=== PATIENT | female | born 1980 | race Caucasian/White ===

== ENCOUNTER 2018-04-13 13:10 | Outpatient (REF) | payer BC, SELFPAY ==
[2018-04-13 21:49] LABS: Abs Immature Grans 0.02 k/cumm (0.0-0.09); Absolute Basophil Count 0.01 k/cumm (0.0-0.2); Absolute Eosinophil Count 0.01 k/cumm (0.0-0.7); Absolute Lymphocyte Count 1.83 k/cumm (1.2-3.4); Absolute Monocyte Count 0.64 k/cumm (0.11-0.7); Basophils % 0.1; Eosinophils % 0.1; HCT 41.6 % (36.0-46.0); HGB 14.6 g/dL (12.0-15.5); Immature Grans % 0.3; Lymphocytes % 23.7; Mean Corp. HGB Concentration 35.1 g/dL (32.0-36.0); Mean Corpuscular Hemoglobin 31.6 pg (27.0-33.0); Mean Platelet Volume 11.9 fL (8.0-11.0); Monocytes % 8.3; Neutrophils % 67.5; Platelet Count 203 x1000/uL (130-400); RBC 4.62 m/cumm (4.00-5.20); RBC Distribution Width 12.5 % (11.7-14.6); White Blood Cell Count 7.71 k/cumm (4.4-10.8)
== END 2018-04-13 13:30 ==
LOC: NCHCN 13:10
PROVIDERS: PCP Internal Medicine; Visit Provider Nurse Practitioner
DX: H05.223 Edema of bilateral orbit (principal)
CPT/HCPCS: 85025

== ENCOUNTER 2019-08-03 14:11 | Outpatient (CLI) | payer BC, SELFPAY ==
[2019-08-03 14:41] LABS: HCT 40.4 % (36.0-46.0); Mean Corp. HGB Concentration 34.7 g/dL (32.0-36.0); Mean Corpuscular Hemoglobin 30.6 pg (27.0-33.0); Mean Corpuscular Volume 88.4 fL (80-95); Mean Platelet Volume 10.5 fL (8.0-11.0); Platelet Count 226 x1000/uL (130-400); RBC 4.57 m/cumm (4.00-5.20); White Blood Cell Count 9.55 k/cumm (4.4-10.8)
[2019-08-03 15:18] LABS: D-Dimer 275 ng/mlFEU (<500)
== END 2019-08-03 14:31 ==
PROVIDERS: PCP Internal Medicine; Visit Provider Nurse Practitioner Family
DX: R05 Cough (principal)
CPT/HCPCS: 36415; 85027; 85379

== ENCOUNTER 2021-03-19 11:28 | Outpatient (REF) | payer BC, SELFPAY ==
[2021-03-19 14:09] LABS: Abs Immature Grans 0.02 10^3/uL (0.0-0.06); Absolute Basophil Count 0.02 10^3/uL (0.0-0.2); Absolute Eosinophil Count 0.03 10^3/uL (0.0-0.7); Absolute Lymphocyte Count 1.71 10^3/uL (1.2-3.4); Absolute Monocyte Count 0.75 10^3/uL (0.1-0.8); Absolute Neutrophil Count 4.96 10^3/uL (1.2-6.7); Basophils % 0.3; Eosinophils % 0.4; HCT 41.7 % (36.0-46.0); HGB 14.8 g/dL (11.2-15.7); Immature Grans % 0.3; Lymphocytes % 22.8; MCH 32.1 pg (27.0-33.0); MCHC 35.5 % (32.0-36.0); MCV 90.5 fL (80-95); MPV 11.3 fL (8.0-11.0); Neutrophils % 66.2; Nucleated RBC 0 %; Platelet Count 183 10^3/uL (130-400); RBC 4.61 10^6/uL (3.93-5.22); RDW 12.5 % (11.7-14.6); RDW-SD 41.1 fL; WBC 7.49 10^3/uL (4.4-10.8)
[2021-03-19 14:29] LABS: Anion Gap 9.7 mmol/L (3-11); BUN 20 mg/dL (7-18); CO2 26.3 mmol/L (21.0-32.0); Calcium 9.2 mg/dL (8.5-10.1); Chloride 106 mmol/L (98-107); Glucose 79 mg/dL (74-106); Potassium 4.3 mmol/L (3.5-5.1); Sodium 142 mmol/L (136-145); TSH (W/Ref FT4) 1.04 uIU/mL (0.36-3.74)
== END 2021-03-19 11:29 | disposition home or self-care (01) ==
LOC: NCHCN 11:28
PROVIDERS: PCP Internal Medicine; Visit Provider Family Medicine
DX: N39.0 Urinary tract infection, site not specified (principal); F41.9 Anxiety disorder, unspecified
CPT/HCPCS: 80048; 87077; 84443; 85025; 87086; 87186

== ENCOUNTER 2021-09-18 18:23 | Outpatient (REF) | payer BC, SELFPAY | END 2021-09-18 18:24 | disposition home or self-care (01) | LOC: NCHCN 18:23 | PROVIDERS: PCP Internal Medicine; Visit Provider Family Medicine | DX: R30.0 Dysuria (principal) | CPT/HCPCS: 87077; 87086; 87186 ==

== ENCOUNTER 2021-10-07 16:44 | Outpatient (REF) | payer BC, SELFPAY ==
--- NOTE | 2021-10-07 15:50 | PAPFT_PTH ---
PATIENT: April Lewis LOC: [facility]#:[id number] AGE/SX: 41/F ROOM: RE10/07/[address]: Gerda Matute : 1980 BED: DIS: 10/07/2021 SPEC #: [id number] RECD: 10/08/21 12:37 STATUS: SYLVAIN RERadha #: [id number] BILLY: 10/07/21 15:[address]: Gerda Matute DEPT: [facility] Cytology RECD BY: Mikala Quiñones ENTERED: 10/08/21 12:37 SP TYPE: PAPFT OTHR DR: Agustin Aguila Tissues: 1 - CX/ENDOCX FOR PAP SMEARS Procedures: PAP THIN PREP/UVM Screening HPV DNA PROBE Comments: [id number] (CHLAMYDIA/GC)
[2021-10-09 13:53] LABS: Chlamydia Result Negative (Negative); GC Result Negative (Negative)
== END 2021-10-07 16:45 | disposition home or self-care (01) ==
LOC: NCHCN 16:44
PROVIDERS: PCP Internal Medicine; Visit Provider Nurse Practitioner Family
DX: Z11.3 Encounter for screening for infections with a predominantly sexual mode of transmission (principal); Z12.4 Encounter for screening for malignant neoplasm of cervix; Z11.51 Encounter for screening for human papillomavirus (HPV); Z01.419 Encounter for gynecological examination (general) (routine) without abnormal findings; Z00.00 Encounter for general adult medical examination without abnormal findings
CPT/HCPCS: 87491; 87591; 88142; 87624

== ENCOUNTER 2024-01-23 09:25 | Emergency (ER) | payer BC, SELFPAY ==
[2024-01-23 09:31] VITALS: BP 145/100; PULSE 99; RESP 20; TEMP 35.7; O2SAT 98
--- NOTE | 2024-01-23 09:45 | ED.GENADUL_ITS ---
Discharge Plan Disposition Patient Disposition: Home Condition: Improving Discharge Details Clinical Impression: Acute hip pain Primary Care Provider: Agustin Aguila ED Provider: Micheal Field Home Meds and New Rx's Prescriptions: New cyclobenzaprine 5 mg tablet 5 mg PO QHS PRNQty: 7 0RF lidocaine [Lidoderm] 5 % adhesive patch,medicated 1 patch topical DAILY Qty: 15 0RF Rx Instructions: leave on most painful area for up to 12 hrs No Action mecobalamin (vitamin B12) 1,000 mcg tablet,chewable 1,000 mcg PO DAILY K2 Plus D3 1,000-100 unit-mcg tablet 1 tab PO DAILY Discharge Instructions Instructions: Hip Pain ED HPI General Date/Time Provider Initiated Documentation: 01/23/24 09:37 . HPI Narrative: 43-year-old female presents after sustaining acute onset left hip pain hearing and feeling an audible pop while dancing, has been able to walk on the leg with some discomfort. Related Data Home Medications ?Medication ?Instructions ?Recorded ?Confirmed cholecalciferol (vit D3) 1,000 1 tab PO DAILY 01/23/24 01/23/24 unit-vitamin K2 (MK4) 100 mcg tablet (K2 Plus D3) cyclobenzaprine 5 mg tablet 5 mg PO QHS PRN #7 tabs 01/23/24 lidocaine 5 % topical patch 1 patch topical DAILY #15 ea 01/23/24 (Lidoderm) mecobalamin (vitamin B12) 1,000 1,000 mcg PO DAILY 01/23/24 01/23/24 mcg chewable tablet Previous Rx's ?Medication ?Instructions ?Recorded cyclobenzaprine 5 mg tablet 5 mg PO QHS PRN #7 tabs 01/23/24 lidocaine 5 % topical patch 1 patch topical DAILY #15 ea 01/23/24 (Lidoderm) Allergies Allergy/AdvReac Type Severity Reaction Status Date / Time No Known Allergies Allergy Unverified 01/23/24 09:34 General Stated Complaint: Orthopedic BISMARK: 3 Exam Narrative Exam Narrative: Alert oriented resting comfortably No respiratory distress speaking full sentences Left lower extremity: Discomfort to lateral aspect of hip no evidence of hematoma crepitus or deformity, range of motion hip knee ankle foot intact, warm well-perfused extremity soft compartments, DP pulse intact ambulatory without assistance Course Vital Signs Vital signs: Vital Signs Temperature 35.7 C L 01/23/24 09:31 Pulse 99 H 01/23/24 09:31 Respiratory Rate 20 01/23/24 09:31 Blood Pressure 145/100 H 01/23/24 09:31 Pulse Oximetry 98 01/23/24 09:31 Temperature 35.7 C L 01/23/24 09:31 Temperature Source Skin 01/23/24 09:31 Pulse 99 H 01/23/24 09:31 Respiratory Rate 20 01/23/24 09:31 Blood Pressure 145/100 H 01/23/24 09:31 Blood Pressure Position Sitting 01/23/24 09:31 Pulse Oximetry 98 01/23/24 09:31 Oxygen Delivery Method Room Air 01/23/24 09:31 Oxygen Flow Rate 0 01/23/24 09:31 Pain Level 8 01/23/24 09:31 Medical Decision Making 43-year-old female presents after sustaining acute onset left hip pain hearing and feeling an audible pop while dancing, has been able to walk on the leg with some discomfort.Left lower extremity: Discomfort to lateral aspect of hip no evidence of hematoma crepitus or deformity, range of motion hip knee ankle foot intact, warm well-perfused extremity soft compartments, DP pulse intact ambulatory without assistance; consider IT band strain versus gluteal strain versus partial dislocation with self reduction versus less likely femoral neck or proximal femur fracture low suspicion for pelvic fracture most also consider atypical sciatica, no evidence of neurovascular compromise. Trial of analgesia anti-inflammatory will obtain screening x-ray AP pelvis and left hip likely home with care instructions and return precautions 10: 56 patient was comfortably feeling better after medication. X-ray unremarkable. Quality:SDOH Health Related Social Needs: No Data to Display PFSH All Active Problems (Updated 01/23/24 @ 10:56 by Micheal Field MD) Acute hip pain (Acute) Social History Smoking/Tobacco Use Status: Never Smoking risk assessment performed?: Yes Alcohol Intake: current Alcohol Intake frequency: holidays/special occasions only Alcohol type: wine Drug use: Never Substance use type: does not use Housing: house Do you feel safe at home: Yes Do you feel safe in your relationship?: Yes
[2024-01-23] MEDS: Lidocaine 5% Patch 1 PATCH TP (09:48)
[2024-01-23] MEDS: Cyclobenzaprine 10 MG TAB PO (09:48)
[2024-01-23] MEDS: Dexamethasone 10 MG/ML VIAL PO (09:48)
--- NOTE | 2024-01-23 10:08 | DI.RAD_ITS ---
Exam(s) XR HIP LT COMPLETE AP PELVIS EXAM: XR HIP LT COMPLETE AP PELVIS CLINICAL HISTORY: lateral hip pain, felt pop when dancing. TECHNIQUE: 2D digital imaging was performed of the left hip. Two views were obtained. AP pelvis an d lateral left hip views were obtained. COMPARISON: CR RIGHT HIP COMPLETE from 12/06/2012 FINDINGS: BONES: No acute fracture is present. No bony destructive lesion is seen. JOINTS: No dislocation present. SOFT TISSUE: Normal. IMPRESSION: Unremarkable radiographs of the left hip. Unremarkable radiographs of the pelvis DATA REPOSITORY: RADIATION DOSE DELIVERED:
--- NOTE | 2024-01-23 10:17 | DI.VRAD_ITS ---
PROCEDURE INFORMATION: Exam: XR Left Hip Exam date and time: 01/23/2024 10:04 AM Age: 43 years old Clinical indication: Other: Lateral hip pain, felt pop when dancing TECHNIQUE: Imaging protocol: Radiologic exam of the left hip. Views: 2 or 3 views hip with pelvis when performed. COMPARISON: No relevant prior studies available. FINDINGS: Bones/joints: Unremarkable. No acute fracture. Soft tissues: Unremarkable. IMPRESSION: No acute findings. Dictated and Authenticated by: Nicolasa Almanza MD. Ordering:ANGIE Burton MD
[2024-01-23 10:54] VITALS: PULSE 78; RESP 16; O2SAT 99
== END 2024-01-23 11:05 | disposition home or self-care (01) ==
PROVIDERS: Emergency Provider Emergency Medicine; PCP Internal Medicine
DX: M25.552 Pain in left hip (principal)
CPT/HCPCS: 99283; 73502; J1100

== ENCOUNTER 2024-07-12 12:34 | Outpatient (CLI) | payer BC, SELFPAY ==
--- NOTE | 2024-07-12 | DI.CT_ITS ---
Exam(s) CT ABDOMEN PELVIS W EXAM: CT ABDOMEN PELVIS W CLINICAL HISTORY: INTRA-ABD/PELVIC SWELLING/MASS/LUMP, R19.00. TECHNIQUE: Imaging Protocol: Axial computed tomography images with coronal and sagittal reformatted images were created and reviewed CONTRAST MATERIAL: Intravenous: Omnipaque 350 Contrast volume:75 ml Oral: yes COMPARISON: CR,XR XR HIP LT COMPLETE AP PELVIS from 01/23/2024 FINDINGS: ABDOMEN and PELVIS: Lung Bases: No acute findings. Liver: Mild hepatic steatosis. No suspicious mass. Gallbladder and biliary tract: Small gallstones. No wall thickening or pericholecystic fluid. No bi liary dilation. Pancreas: Normal density. No abnormal calcifications or inflammatory process. No evidence of mass. Spleen: Normal. Kidneys: Normal size, contour and axis. 3 millimeter stone lower pole left kidney. No obstructive u ropathy. Tiny renal cysts bilaterally. No suspicious masses seen. Adrenal glands: No masses seen. Vasculature: Abdominal aorta non-dilated. Soft tissues: Unremarkable. Bladder: No gross wall thickening. No calculi.No focal mass. Bowel: No obstruction. No bowel wall thickening. Appendix normal. Peritoneal cavity: No ascites. No focal collection. No mesenteric inflammatory response. No free air . Bones: Unremarkable for age. Reproductive organs: Large cystic mass with enhancing septations noted which appears to arise from th e left ovary. Approximate measurements are 20 cm cephalo caudad by 19 x 14 transverse and AP. The u terus is deviated toward the right and retroflexed. The right ovary shows a 2 centimeter cyst. Lymph nodes: No pathologically enlarged lymph nodes. 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 Calendering Supervisor consultation recom mended. RADIATION DOSE DELIVERED: 635.93mGy.cm Total DLP DATA REPOSITORY: All CT scans at this facility are submitted to the National Radiology Data Registry (NRDR) Dose Index Registry (DIR) with the [employer] (ACR). RADIATION OPTIMIZATION: All CT scans at this facility use at least one of these dose optimization te chniques: automated exposure control; mA and/or kV adjustment per patient size (includes targeted exa ms where dose is matched to clinical indication); or iterative reconstruction.
[2024-07-12 12:35] LABS: Abs Immature Grans 0.02 10^3/uL (0.0-0.06); Absolute Basophil Count 0.03 10^3/uL (0.0-0.2); Absolute Eosinophil Count 0.02 10^3/uL (0.0-0.7); Absolute Lymphocyte Count 1.75 10^3/uL (1.2-3.4); Absolute Monocyte Count 0.55 10^3/uL (0.1-0.8); Absolute Neutrophil Count 5.26 10^3/uL (1.2-6.7); Basophils % 0.4 %; Eosinophils % 0.3 %; HCT 45.3 % (36.0-46.0); HGB 15.4 g/dL (11.2-15.7); Immature Grans % 0.3 %; Lymphocytes % 22.9 %; MCH 30.7 pg (27.0-33.0); MCV 90 fL (80-95); MPV 10.5 fL (8.0-11.0); Monocytes % 7.2 %; Neutrophils % 68.9 %; Platelet Count 227 10^3/uL (130-400); RBC 5.01 10^6/uL (3.93-5.22); RDW 12.7 % (11.7-14.6); RDW-SD 42.3 fL; WBC 7.63 10^3/uL (4.4-10.8)
--- OUTSIDE RECORDS SUMMARY | 2024-07-12 12:36 | XMS_ITS | Encounter Summary ---
Author Organization [facility] Address [address] [place] [address] Care Team Providers Care Creative Lead Name Role Phone Agustin Aguila MD Primary Care Provider [phone] Encounter Details Date Type Department Care Team (Late st Contact Info) Description 05/03/[address] [facility] Radiology Results [address] [place], [place] [id number] Carroll Trinidad MD [address] [place] [address] [id number] Social History Tobacco Use Types Packs/Day Years Used Date Smoking Tobacco: Never Assessed Comments Unknown Sex and Gender Information Value Date Recorded Sex Assigned at Not on file Legal Sex Female 18:54 EST Gender Identity Female 08/12/2022 8:50 EST Sexual Orientation Not on file documented as of this encounter Plan of Treatment Not on file documented as of this encounter Procedures Procedure Name Priority Date/Time Associated Diagnosis Comments CT ABDOMEN PELVIS W CONTRAST 05/03/2015 16:47 EST documented in this encounter Results * CT ABDOMEN PELVIS W CONTRAST (05/03/2015 16:47 EST) Anatomical Region Laterality Modality Other 05/03/2015 16:4 7 EST Narrative 05/03/2015 20:09 EST ? EXAM: CAT SCAN/ABDOMEN PELVIS WITH CONTRA EX. D/ (1345) ? CLINICAL INFORMATION: ? R10.84 ??R10.32 LEFT LOWER QUADRANT PAIN;R/O ? ABDOMINAL/INGUINAL LEFT HERNIA ? INDICATION: Abdominal pain. Left lower quadrant pain. Question ? hernia. ? COMPARISON: None. ? TECHNIQUE: CT scan of the abdomen and pelvis was performed with IV ? and oral contrast. ? FINDINGS: The lung bases are clear. There is mild diffuse hepatic ? fatty infiltration. The gallbladder, pancreas, spleen, adrenal glands ? and right kidney are unremarkable. There are two tiny low-density ? lesions within the left kidney that are too small to accurately ? characterize but likely represent tiny cysts. The urinary bladder is ? unremarkable. There is a cyst measuring 15 mm within the left ovary. ? The right ovary and uterus are unremarkable. The appendix is normal. ? There is a posterior central disc protrusion at L4-L5 indenting the ? anterior thecal sac. ? There is a relatively smooth eventration of the midline of the ? anterior abdominal wall that extends from approximately 5 cm above to ? 5 cm below the umbilicus. Abdominal fat and loops of bowel fill this ? focal midline abdominal wall bulge. No focal hernia defect or ? incarceration is present. There is swelling and mild increased ? density within the medial aspect of the left rectus abdominis muscle ? (axial images 108 through 117). This may be the sequelae of trauma ? and rectus hematoma. A rectus abdominis muscle neoplasm is not ? excluded, but less likely. Close clinical correlation and followup is ? recommended. ? IMPRESSION: ? 1. Smooth eventration within the midline of the anterior abdominal ? wall extending from approximately 5 cm above to 5 cm below the ? umbilicus filled with loops of bowel and abdominal fat. No focal ? hernia defect or bowel incarceration is identified. ? 2. Indeterminate swelling and increased density within the medial ? edge of the left rectus abdominis muscle. Differential diagnosis ? includes trauma with rectus hematoma and neoplasm. ? 3. Other nonemergent findings as described above. ? REPORT SIGNED IN OTHER VENDOR SYSTEM 05/04/2015 ?Reported By: Elkin Clarke MD ? CC: Mary Phan ? Transcribed Date/Time: 05/03/2015 (2008) ? Corn Chip Maker: RENETTA ? Printed Date/Time: 12/07/2018 (0946) ? PAGE 1 ? Signed Report ? Procedure Note Elkin Clarke MD - 05/03/2019 EXAM: CAT SCAN/ABDOMEN PELVIS WITH CONTRA EX. D/ (1345) CLINICAL INFORMATION: R10.84 R10.32 LEFT LOWER QUADRANT PAIN;R/O ABDOMINAL/INGUINAL LEFT HERNIA INDICATION: Abdominal pain. Left lower quadrant pain. Question hernia. COMPARISON: None. TECHNIQUE: CT scan of the abdomen and pelvis was performed with IV and oral contrast. FINDINGS: The lung bases are clear. There is mild diffuse hepatic fatty infiltration. The gallbladder, pancreas, spleen, adrenalglands and right kidney are unremarkable. There are two tiny low-density lesions within the left kidney that are too small to accurately characterize but likely represent tiny cysts. The urinary bladderis unremarkable. There is a cyst measuring 15 mm within the leftovary. The right ovary and uterus are unremarkable. The appendix isnormal. There is a posterior central disc protrusion at L4-L5 indenting the anterior thecal sac. There is a relatively smooth eventration of the midline of the anterior abdominal wall that extends from approximately 5 cm aboveto 5 cm below the umbilicus. Abdominal fat and loops of bowel fillthis focal midline abdominal wall bulge. No focal hernia defect or incarceration is present. There is swelling and mild increased density within the medial aspect of the left rectus abdominismuscle (axial images 108 through 117). This may be the sequelae of trauma and rectus hematoma. A rectus abdominis muscle neoplasm is not excluded, but less likely. Close clinical correlation and followupis recommended. IMPRESSION: 1. Smooth eventration within the midline of the anterior abdominal wall extending from approximately 5 cm above to 5 cm below the umbilicus filled with loops of bowel and abdominal fat. No focal hernia defect or bowel incarceration is identified. 2. Indeterminate swelling and increased density within the medial edge of the left rectus abdominis muscle. Differential diagnosis includes trauma with rectus hematoma and neoplasm. 3. Other nonemergent findings as described above. REPORT SIGNED IN OTHER VENDOR SYSTEM 05/04/2015 Reported By: Elkin Clarke MD CC: Mary Phan Transcribed Date/Time: 05/03/2015 (2008) Corn Chip Maker: RENETTA Printed Date/Time: 12/07/2018 (0946) PAGE 1 Signed Report Carroll Trinidad MD IMG CT ORDERABLES Final Result documented in this encounter Visit Diagnoses Not on filedocumented in this encounter Care Teams Creative Lead Relationship Specialty Start Date End Date Agustin Aguila MD [address] [place] [id number] PCP - General 08/13/11 documented as of this encounter
--- OUTSIDE RECORDS SUMMARY | 2024-07-12 12:36 | XMS_ITS | Clinical Summary ---
Author Organization [facility] Address [address] [place] [address] Care Team Providers Care Cash Accounting Clerk Name Role Phone Agustin Aguila MD Primary Care Provider [phone] Allergies No known active allergies Medications escitalopram oxalate (LEXAPRO) 10 mg tablet Take 10 mg by mouth daily. 3 Active ketOROLAC (TORADOL) 10 mg tablet Take 1 Tablet by mouth every 6 hours. 20 Tablet 3 Active ondansetron (ZOFRAN-ODT) 4 mg disintegrating tablet Take 1 Tablet by mouth every 8 hours as needed for Nausea. 6 Tablet 3 Active HYDROmorphone (DILAUDID) 1 mg/mL liquid Take 2 mL by mouth every 4 hours as needed for up to 10 doses for Pain (severe pain). 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- R ight side clicking Activity, other involving ca rdiorespiratory exercise Noted 08/12/22- Walking, 1-2 FOS without any Back pain Noted 08/12/22- S ciatic pain Family History Medical History Relation Comments High Blood Pressure Mother Relation Status Comments Mother Social History Tobacco Use Types Packs/Day Years Used Date Smoking Tobacco: Never Smokeless Tobacco: Never Tobacco Cessation:Counseling Given: Not Answered Alcohol Use Standard Drinks/Week Comments Yes 0 (1 standard drink = 0.6 oz pur e alcohol) Occasionally Interpersonal Safety Answer Date Record ed Physically Hurt Never 01/28/2020 Verbally Threaten Not on file 01/28/2020 Comments Unknown Sex and Gender Information Value Date Recorded Sex Assigned at Not on file Legal Sex Female 18:54 EST Gender Identity Female 08/12/2022 8:50 EST Sexual Orientation Not on file Obstetrics History Last Filed Vital Signs Vital Sign Reading Time Taken Comments Blood Pressure 93/67 08/18/2022 1212 EST Pulse 100 08/18/2022 0343 EST Temperature 35.6 ??C (96.1 ??F) 08/18/2022 1212 EST Respiratory Rate 16 08/18/2022 1212 EST Oxygen Saturation 92% 08/18/2022 1212 EST Inhaled Oxygen Concentration - - Weight 86.1 kg (189 lb 13.1 oz) 08/17/2022 1119 EST Height 160 cm (5' 3) 08/17/2022 1119 EST Body Mass Index 33.62 08/17/2022 1119 EST Plan of Treatment Health Maintenance Due Date Last Done Comments Hepatitis C Screen 1980 Hepatitis B Vaccine (1 of 3 - 19+ 3-dose series) 07/24 COVID-19 Vaccine ( season) 2024 Medical Devices Implanted Type Area Truck Driving Device Identifier Shelf Expiration Date Model / Serial / Lot Plate Bone Cmf Mandib Crv Lck Gld 6h 6mm Broadcastr [id number] - [id number] Implanted:Qty: 1 on 08/17/2022 by Martínez Chi DDS at [facility] Plate Implant Right: Mandible JUAN ANTONIO ELOISATibion [employer]ionic TechnologiesJOANNE [id number] / / Plate Bone Cmf Mandib Crv Lck Gld 6h 6mm Broadcastr [id number] - [id number] Implanted:Qty: 1 on 08/17/2022 by Martínez Chi DDS at [facility] Plate Implant Left: Mandible JUAN ANTONIO LEIBINGER [id number] / / Plate Bone 3mm Right 10 Hole Advancement - [id number] Implanted:Qty: 1 on 08/17/2022 by Martínez Chi DDS at [facility] Plate Implant Right: Hard Palate JUAN ANTONIO LEIBINGER [id number] / / Plate Bone Cmf Mdface Lft Gld 5h 5mm Leibinger [id number] - [id number] Implanted:Qty: 1 on 08/17/2022 by Martínez Chi DDS at [facility] Plate Implant Right: Hard Palate JUAN ANTONIO LEIBINGER [id number] / / Plate Bone Cmf Mdface Rght Gld 5h 5mm Leibinger [id number] - [id number] Implanted:Qty: 1 on 08/17/2022 by Martínez Chi DDS at [facility] Plate Implant Right: Hard Palate JUAN ANTONIO LEIBINGER [id number] / / Plate Bone 5mm Left 10 Hole Advancement - [id number] Implanted:Qty: 1 on 08/17/2022 by Martínez Chi DDS at [facility] Plate Implant Left: Hard Palate JUAN ANTONIO LEIBINGER [id number] / / Screw Bone Cmf Mandib St Gld 2x5mm Leibinger [id number] - [id number] Implanted:Qty: 4 on 08/17/2022 by Martínez Chi DDS at [facility] Screw Implant Right: Mandible JUAN ANTONIO LEIBINGER [id number] / / Screw Bone Slf Tpng Fthrd 1.9x03mm Axs [id number] - [id number] Implanted:Qty: 1 on 08/17/2022 by Martínez Chi DDS at [facility] Screw Implant Right: Hard Palate JUAN ANTONIO LEIBINGER [id number] / / Screw Bone Cmf Mandib Sdr 1.7x4mm Axs [id number] - [id number] Implanted:Qty: 21 on 08/17/2022 by Martínez Chi DDS at [facility] Screw Implant Right: Hard Palate JUAN ANTONIO LEIBINGER [id number] / / Screw Bone Cmf Mdface Sdr 1.7x6mm Axsst [id number] - [id number] Implanted:Qty: 2 on 08/17/2022 by Martínez Chi DDS at [facility] Screw Implant Right: Hard Palate JUAN ANTONIO LEIBINGER [id number] / / Screw Bone Cmf Mandib St Gld 2x4mm Leibinger [id number] - [id number] Implanted:Qty: 3 on 08/17/2022 by Martínez Chi DDS at [facility] Screw Implant Left: Mandible JUAN ANTONIO LEIBINGER [id number] / / Screw Bone Cmf Mandib St Gld 2x5mm Leibinger [id number] - [id number] Implanted:Qty: 3 on 08/17/2022 by Martínez Chi DDS at [facility] Screw Implant Left: Mandible JUAN ANTONIO LEIBINGER [id number] / / Screw Bone Cmf Mandib St Gld 2x4mm Leibinger [id number] - [id number] Implanted:Qty: 2 on 08/17/2022 by Martínez Chi DDS at [facility] Screw Implant Right: Mandible JUAN ANTONIO LEIBINGER [id number] / / Insurance [place] [address] [facility] Address: [address] [address] Advance Directives For more information, please contact: [phone] * Full Code (Latest Code Status on File) Date Activated Date Inactivated Comments 08/17/2022 21:57 08/18/2022 18:21 Question Answer Comments When the patient has NO PULSE: Full Code / CPR Who Made the Decision? Patient * Full Code Date Activated Date Inactivated Comments 08/17/2022 15:59 08/17/2022 21:57 Question Answer Comments When the patient has NO PULSE: Full Code / CPR Who Made the Decision? Patient Care Teams Cash Accounting Clerk Relationship Specialty Start Date End Date Agustin Aguila MD [address] [place] [id number] PCP - General 08/13/11
--- OUTSIDE RECORDS SUMMARY | 2024-07-12 12:36 | XMS_ITS | Encounter Summary ---
Author Organization [facility] Address [address] [place] [address] Care Team Providers Care Campus Recruiting Internship Name Role Phone Agustin Aguila MD Primary Care Provider Encounter Details Date Type Department Care Team (Latest Contact Info) Description 04/05/2013 17:06 EDT - 04/05/2013 23:59 EDT Hospital Encounter [address] [id number] Unknown, Provider, Discharge Disposition: Home or Self Care Social History Tobacco Use Types Packs/Day Years Used Date Smoking Tobacco: Never Assessed Comments Unknown Sex and Gender Information Value Date Recorded Sex Assigned at Not on file Legal Sex Female 18:54 EST Gender Identity Female 08/12/2022 8:50 EST Sexual Orientation Not on file documented as of this encounter Discharge Disposition Disposition Code Departure Means Destination Home or Self Mcfp documented in this encounter Plan of Treatment Not on file documented as of this encounter Visit Diagnoses Not on filedocumented in this encounter Care Teams Campus Recruiting Internship Relationship Specialty Start Date End Date Agustin Aguila MD [address] [place] [address] PCP - General 08/13/11 documented as of this encounter
--- OUTSIDE RECORDS SUMMARY | 2024-07-12 12:36 | XMS_ITS | Encounter Summary ---
Author Organization [facility] Address [address] [place] [address] Care Team Providers Care Measurement Specialist Name Role Phone Agustin Aguila MD Primary Care Provider [phone] Reason for Visit * Auth/Cert (Routine) Specialty Diagnoses / Procedures Referred By Deirdre harris Referred To Contact Diagnoses Maxillary hypoplasia Mandibular hyperplasia Procedures MD RECONST FACE,LEFORT I,1 PIECE MD RECONST MANDIBLE,SAG SPLIT+FIXATN Lefort 1 osteotomy with maxillary advancement and rigid fixation Bilatertal sagittal split osteotomy with mandibular advancement aqnd rigid fixation Referral ID Status Reason Start Date Expiration Date Visits Re quested Visits Authorized [id number] 1 1 Encounter Details Date Type Department Care Team (Late st Contact Info) Description 08/17/2022 10:26 EST - 08/18/2022 16:15 EST Hospital Encounter [facility] General Medicine Unit [address] [place] [address] Martínez Chi, HAMMADS [address] [place] [id number] Discharge Disposition: Home or Self Care Social History Tobacco Use Types Packs/Day Years Used Date Smoking Tobacco: Never Smokeless Tobacco: Never Alcohol Use Standard Drinks/Week Comments Yes 0 [...] on file documented as of this encounter Last Filed Vital Signs Vital Sign Reading [...] Body Mass Index 33.62 08/17/2022 1119 EST documented in this encounter Discharge Summaries * Christiana Rylee - 08/18/2022 1615 EST Discharge Summary Chief Complaint/Reason for Admission: S/P Lefort I osteotomy with maxillary advancement and Bilateral sagittal split osteotomy with mandibular setback and rigid fixation. 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 Prognosis: Good Condition at Discharge: Stable Relevant Studies at Discharge: None Date of Admission: 08/17/2022 Date of Discharge: 08/18/2022 Assessment at Discharge: Patient Vitals for the past 8 hrs: BP Temp Temp src Resp SpO2 08/18/22 0837 103/67 -- -- 16 92 % 08/18/22 0841 -- 36.1 ??C (96.9 ??F) Tympanic -- -- 08/18/22 1212 93/67 35.6 ??C (96.1 ??F) Tympanic 16 92 % Hospital Course: The patient presented to [facility] on 08/17/2022 for management of Maxillary hypoplasia/ mandibular hyperplasia . The patient was admitted the day of surgery. The surgery was unremarkable and the outcome was satisfactory. Postoperatively, the patient was sent to PACU for monitoring and then to [facility] for recovery. The patient remained stable throughout the remainder of their hospitalization.On rounding POD #1, the patient's operative site had expected post-operative swelling. The patient was able to ambulate, void, and take PO fluids. The patient improved throughout the afternoon. The aida lyle was discharged later that afternoon and will plan to follow-up as an outpatient with Dr. Chi. RYLEE VILLEDA, JEANIE Cosigned by Martínez Chi DDS at 08/26/2022 11:07 EST documented in this encounter Medications at Time of Discharge escitalopram oxalate (LEXAPRO) 10 mg tablet Take 10 mg by mouth daily. 07/21/2022 HYDROmorphone (DILAUDID) 1 mg/mL liquid Take 2 mL by mouth every 4 hours as needed for up to 10 doses for Pain (severe pain). Daily Max: 12 mg 20 mL 08/18/2022 ketOROLAC (TORADOL) 10 mg tablet Take 1 Tablet by mouth every 6 hours. 20 Tablet 08/18/2022 ondansetron (ZOFRAN-ODT) 4 mg disintegrating tablet Take 1 Tablet by mouth every 8 hours as needed for Nausea. 6 Tablet 08/18/2022 amoxicillin (AMOXIL) 250 mg/5 mL suspension Take 10 mL by mouth 3 times daily for 7 days. 210 mL 08/18/2022 3 documented as of this encounter Ordered Prescriptions Prescription Sig Dispense Quantity Refills Last Filled Start Date End Date HYDROmorphone (DILAUDID) 1 mg/mL liquid Take 2 mL by mouth every 4 hours as needed for up to 10 doses for Pain (severe pain). Daily Max: 12 mg 20 mL 08/18/2022 ondansetron (ZOFRAN-ODT) 4 mg disintegrating tablet Take 1 Tablet by mouth every 8 hours as needed for Nausea. 6 Tablet 08/18/2022 ketOROLAC (TORADOL) 10 mg tablet Take 1 Tablet by mouth every 6 hours. 20 Tablet 08/18/2022 amoxicillin (AMOXIL) 250 mg/5 mL suspension Take 10 mL by mouth 3 times daily for 7 days. 210 mL 08/18/2022 3 documented in this encounter Discharge Disposition Disposition Code Departure Means Destination Home or Self Retirement documented in this encounter Progress Notes * Rylee Villeda - 08/18/2022 1613 EST [facility] [place] PROGRESS NOTE SUBJECTIVE: Patient POD #1 following LeFort I Osteotomy and BSSO. Patient complains of 6/10 which is decreased to 0/10 pain after administration of pain medication. April experienced some nausea last night which was well controlled by Zofran 8mg. She is drinking water and voiding. OBJECTIVE: Vitals: Patient Vitals for the past 8 hrs: BP Temp Temp src Resp SpO2 08/18/22 0837 103/67 -- -- 16 92 % 08/18/22 0841 -- 36.1 ??C (96.9 ??F) Tympanic -- -- 08/18/22 1212 93/67 35.6 ??C (96.1 ??F) Tympanic 16 92 % I&O: I&O By Type - 3 Shifts Including Current In: 1150 [P.O.:550; I.V.:600] Out: - Medications: Current Facility-Administered Medications Medication Route Frequency ??? dextrose 5 %-0.45 % sodium chloride infusion intravenous CONTINUOUS ??? escitalopram oxalate (LEXAPRO) tablet 10 mg oral DAILY ??? HYDROmorphone 1 mg/ml (DILAUDID) BUFFER INFLATED PAD syringe, 30 ml intravenous BUFFER INFLATED PAD ??? ketOROLAC (TORADOL) injection 15 mg intravenous Q6H ??? lactated ringers (LR) infusion intravenous CONTINUOUS ??? methylPREDNISolone sod suc(PF) (SOLU-MEDROL) injection 125 mg intravenous Q6H ??? naloxone (NARCAN) injection 0.1 mg intravenous PRN ??? ondansetron (PF) (ZOFRAN) injection 8 mg intravenous Q8H PRN Physical Exam: On rounding with FS attending, Dr. Chi, the patient was lying comfortably with no acute distress. They were cooperative and allowed for a complete exam. The findings were: Extraoral incisions were clean, dry and intact; Expected post operative edema which was minimal; Mandibular ROM limited by pain at operative site; Occlusion verified and stable; Maxillary gingiva well perfused; No active bleeding. The patient has adequate PO intake, ambulating without assistance, minimal nausea, and is able to void. ASSESSMENT: Patient is POD #1 following LeFort I and BSSO surgery. Patient is progressing well post-operatively. PLAN: Diet: Continue full liquid diet today and encourage PO intake. Discharge patient later this afternoon. RYLEE VILLEDA DMD Cosigned by Martínez Chi DDS at 08/26/2022 11:07 EST * Jax Dao RN - 08/18/2022 1029 EST April Lewis 1980 LeFort I osteotomy with maxillary advancement and rigid fixation Bilateral sagittal split osteotomy with mandibular setback and rigid fixation Chart review completed and discussed the plan of care with the direct care RN and/or primary care team. Primary Insurance: [facility] State Employee Patient with no apparent Case Management needs at this time. No housing, transportation, insurance,resources concerns identified at this time. Supports in place to achieve a safe post-hospital transition. No identified barriers to accessing necessary care and/or follow-up after discharge. video game animator/Hr Specialist will continue to follow patient's progress and remain available if situation changes for coordination of care, psychosocial support and/or discharge planning. Jax Dao RN, MSN, [facility] Case Management & Shelter Advocate [address] [phone] pager [phone] JAX DAO RN 08/18/2022 10:30 documented in this encounter H&P Notes * Rylee Villeda - 08/17/2022 1217 EST The preoperative history and physical which was performed within 30 days of this procedure has been reviewed and the clinically appropriate elements of the physical examination have been repeated. There are no changes to the documented history and physical or if so such changes are documented below RYLEE VILLEDA 08/17/2022 12:17 Cosigned by Martínez Chi DDS at 08/17/2022 16:53 EST documented in this encounter OR Notes * OR Surgeon - Martínez Chi DDS - 08/17/2022 0000 EST OPERATIVE REPORT SERVICE DATE: 08/17/2022 SURGEON: Martínez Chi DDS ASSISTANTS: 1. Mac Coelho DDS 2. Rylee Villeda DMD PREOPERATIVE DIAGNOSIS: Maxillary hypoplasia. Mandibular hyperplasia POSTOPERATIVE DIAGNOSIS: Maxillary hypoplasia. Mandibular hyperplasia. PROCEDURE: Le Fort I osteotomy with maxillary advancement and rigid internal fixation. Bilateral sagittal split osteotomy with mandibular setback and rigid fixation. ANESTHESIA: General. INDICATIONS AND CONSENT: The patient is a 42-year-old who has been undergoing orthodontic treatmentfor a malocclusion. 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 Her treatment plan for correction of malocclusion required a combined orthodontic and surgical treatment. Thepatient has completed her presurgical orthodontic tooth removement and now presents for maxillary mandibular osteotomies to correct her malocclusion. The surgery required, associated risks and complications were discussed in detail with the patient. Written informed consent was obtained. NARRATIVE: The patient was taken to the operating room and placed in supine position on the operating room table. She was then administered a general anesthetic with nasoendotracheal intubation. The patient was then prepped and draped as usual for an oral maxillofacial procedure. Attention was first turned to the nose. The nasal bridge, a 0.045 K-wire was introduced through the skin and embedded into the nasal bone and cut so that approximately 1 cm extended above the nasal skin surface. This was used as a vertical reference for maxillary position. A Jolene gauge was then used to measure from the superior surface of the nasal K-wire to the inferior aspect of the orthodontic bracket in the maxillary central incisor. This vertical length was documented and used for future reference during surgery. The oropharynx was then thoroughly suctioned and oropharyngeal pack was placed. Lidocaine 2% with 1:100,000 epinephrine was injected along the medial and lateral ramus bilaterally for a total of 10 mL injected. Attention was turned to the right mandible. A Bovie needle tip electrocautery was used to create an incision in the depth of the mandibular vestibule extending from the inferior aspect of the ascending ramus anteriorly in the depth of the vestibule to the region of the second bicuspid tooth. This incision was made through mucosa, submucosa, buccinator and periosteum. Subperiosteal dissection was then used to expose the mandibular body to the inferior border. A J stripper was placed along the inferior border to separate the pterygomasseteric attachments. Dissection was then completed up the ascending ramus, and the temporalis muscle attachment was stripped using an anterior border stripper. Tissue was held superiorly and then dissection was completed along the medial ramusin a subperiosteal plane exposing the medial ramus from the lingula to the sigmoid notch. Once the lingula was identified, a Seldin retractor was used to retract soft tissue and protect the neurovascular bundle. A [place]et Piezo saw was used to create a horizontal osteotomy approximately 5 mm above the lingula through the medial aspect of the ramus through the medial cortex and underlying medullary bone. At the anterior extent of this cut, the saw was turned 90 degrees and run along the superioraspect of the mandible inside the external oblique ridge to the region between the first and secondmolar tooth. A vertical osteotomy was then completed at the anterior extent of the sagittal cut, beginning at the inferior border of the mandible between the first and second molar tooth, extending superiorly through the lateral cortical bone into underlying medullary bone. The cut was also made thr ough the inferior border. Following completion of the osteotomy on the right side, attention was turned to the left side. In a similar fashion, an incision was made in the mandibular vestibule. Dissection was performed in subperiosteal plane to expose the lateral body, anterior aspect of the lateral ramus and up the ascending ramus to expose the medial ramus from the lingula to the sigmoid notch. Again, the sagittal osteotomies were completed using a Sonopet Piezo saw in a similar manner to the right side. Following completion of the osteotomies, the sagittal split was completed. A straight osteotome was run along thesagittal cut to make sure that it was through to medullary bone. A Abernathy network design architect was placed in thesagittal cut and a splitter was placed along the inferior aspect of the lateral vertical cut in themandibular body. Using gentle prying force, the sagittal split was completed. The neurovascular bundle was found to be intact in the distal segment and medullary bone. The inner aspect of the proximal condylar bearing segment was smoothed using a reciprocating rasp and the Piezo saw. Attention was turned then to the right side where in a similar manner, the sagittal osteotomy was completed. The inner aspect of the proximal segment was smoothed using a reciprocating rasp. The J stripper was run along the inferior aspect of the distal segment bilaterally. Following completion of the sagittal osteotomies bilaterally, the mandibular teeth were wired to the maxillary teeth with the intervening intermediate splint, which dictated the position of the mandible. The maxillary teeth were wired to the mandibular teeth around orthodontic bracket hooks using 26-gauge stainless steel wire. Attention was turned to the right side where the proximal mandibular segment was positioned with the condyle seated in the fossa. Inferior borders lined up and a 6-hole bone plate was adapted to the lateral cortex and stabilized, the proximal segment to the distal segment with three 2 mm screws x 5 mm length in the proximal segment and three 2 mm diameter screws, two at 4 mm, and one at 5 mm in length in the distal segment. Following stabilization of the right side, the left side was again bone plated using a similar bone plate with similar screw pattern. Three screws through the lateral cortex in the proximal segment and 3 screws in the distal segment. Following stabilization of the right and left sagittal split osteotomy segments, the fixation wires were removed. The occlusion was found to be stable and repeatable as desired in the intermediate splint. Attention was then turned to the maxilla. Lidocaine 2% with 1:100,000 epinephrine was injected at the depth of the maxillary vestibule bilaterally for a total of 7 mL injected. An incision was made at the depth of the maxillary vestibule using needle tip electrocautery extending from the left zygomatic buttress, crossing the midline at the anterior nasal spine to the contralateral buttress. This incision was made through mucosa, submucosa, muscle, and periosteum. Subperiosteal dissection was completed, exposing the maxilla bilaterally including the anterior nasal spine, the piriform rim, zygomatic buttress and then posteriorly to the zygomatic buttress to the region of the pterygomaxillary suture. Three mL of 2% lidocaine was then injected in the nasal mucosa. The nasal mucosa was elevated from the piriform rim, nasal floor and inferior aspect of the nasal septum bilaterally using a double-ended dental curette and a Coy elevator. Horizontal osteotomy was then completed, extending from the inferior lateral aspect of the piriform and horizontally posteriorly extending under the zygomatic buttress and then extending posteriorly to the region of the pterygomaxillary suture. This wascompleted bilaterally. The posterior aspect of this Le Fort I cut was completed using a curved Epker osteotome to the pterygoid plate. The lateral nasal wall was then beginning at the piriform rim posteriorly to the pterygoid bone. This was performed bilaterally. The nasal septum was thenseparated from the nasal floor using a double guarded chisel. Finally, the maxillary tuberosity wasseparated from the pterygoid bone in the region of the pterygomaxillary suture using a curved pterygoid osteotome. Following completion of the cuts and osteotomies, the maxilla was down-fractured andmobilized to allow for advancement. The advanced maxilla was then wired to the mandibular teeth using a final splint to guide the desired final occlusion. The maxillary teeth were wired to the mandibu lar teeth using 26-gauge stainless steel wire around orthodontic bracket hooks. The mandible was then seated with its condyle in the fossa and rotated in a counterclockwise direction until the first contact of the maxilla with the superior segment was obtained. The [place] gauge was then used to measure the vertical position of the maxilla from the nasal K-wire to the desired length. The maxilla was then rigidly fixated using a 3 mm stepped bone plate on the right side and a 5 mm stepped bone plate on the left side of the piriform rim. Four 4 mm x 1.8 mm screws were placed in the superior segment and 4 in the inferior segment bilaterally. An L-shaped bone plate was then adapted to the zygomatic buttress bilaterally to stabilize the maxilla in this region. Three 4 mm screws were placed in the superior segment and 2 in the inferior segment. This was completed bilaterally following rigid fixation of the maxilla. The fixation wires wereremoved and the occlusion was found to be stable and repeatable as desired. The incisions were thenclosed. Additionally the maxillary incision was closed. A 2-0 Vicryl suture was used to reestablishalar base width by grasping tissue along the alar base teeth and suturing it in the midline. The mucosal incision was then closed using 3-0 Rapide Vicryl suture in a continuous running fashion to obtain a V to Y closure. The mandibular incisions were then closed using 3-0 Rapide Vicryl suture in a continuous running fashion. The oral cavity and oropharynx was thoroughly irrigated and suctioned. The oropharyngeal pack was removed. The K- wire was removed from the nose. Orthodontic elastics were placed around orthodontic bracket hooks bilaterally for a total of 3 elastics placed bilaterally. Following surgery, all sharp and sponge counts were correct. Estimated blood loss was 250 mL. The patient received 1 liter of crystalloid replacement. She was extubated in the operating room and transported to the PACU in stable condition. Unless otherwise noted, there were no complications, no blood loss, no cultures obtained, no specimens removed, and no drains retained. Martínez Chi DDS / AW Confirmation: [id number] Dictation ID: [id number] cc: documented in this encounter Miscellaneous Notes * Plan of Care - Lorena Reaves RN - 08/18/2022 1613 EST 08/18/22 Status at discharge, nursing note Data: at start of shift today, pt c/o bilat jaw/face pain of 2/10. Pt was using dilaudid cut off saw set up operator minimally, and receiving iv toradol and prednisolone Q6. Pt used her double facial ice pack throughout theday. She was rather drowsy, but was alert enough to walk to BR for voids at 08 and again at 1030. As the day progressed, she was able to drink clear liquids at increasing rates. Once she drank 500cc po fluid this shift, her IVF were stopped. About midday, pt passed flatus, there were no reports of nausea at all today. She voided amply several times throughout the shift. At 1450 pt walked 400ft in the tabor requiring only standy by assist,and tolerated the ambulation well. Her vital signs were stable, and wnl. Pt had swelling on bilat facial cheeks and has diffuse bluish bruising on bilat cheeks as well. Pt denied tasting bloody drng ; at approx 1500, just prior to d/c pt had slight bloody drng from R nares, which was stopped w/light pressure- patting w/in 1/2 hr. Action: removed intact PIV; reviewed discharge instructions w/pt; provided pt w/her copy of the AVSinstructions. Provided pt w/extra facial double ice pack wrap, upon her request. Response: pt left for d/c to home In WC at 1615 w/the assistance of her mother. LORENA REAVES RN 08/18/2022 16:14 * Plan of Care - Tess Ledesma RN - 08/18/2022 0429 EST Problem: Daily Care Plan Goals Goal: Care Plan Documentation Outcome: Met This Shift Data: April came shep3 around 2145. POD#0 s/p Le Fort osteotomy with maxillary advancement with rigid fixation. Noted facial swelling, ice pack in place. Zofran given for nausea x1. Tolerating clear liquid diet. BS hypoactive, no flatus at this time. Pain rating climbed from 5/10 to 10/10, BUFFER INFLATED PAD started and scheduled toradol given, now adequately controlled, rated 0/10. Voiding and ambulating. Aox3, VSS on RA. Action: Performed shift assessment. Administered scheduled/PRN medications per MAR. Assisted to bathroom x1. Hourly rounding complete. Response: Patient has been sleeping since 0000, call de la rosa is within reach, able to make needs known. TESS LEDESMA RN 08/18/2022 4:29 * Brief Op Note - Rylee Villeda - 08/17/2022 1601 EST Date: 08/17/2022 Location: [facility] OR Name: April Lewis, : 1980, Diagnosis Pre-Op Diagnosis Codes: * Maxillary hypoplasia [M26.02] * Mandibular hyperplasia [M26.03] Post-op Diagnosis * Maxillary hypoplasia [M26.02] * Mandibular hyperplasia [M26.03] Procedures LeFort I osteotomy with maxillary advancement and rigid fixation Bilateral sagittal split osteotomy with mandibular setback and rigid fixation Surgeons * Martínez Chi, DDS - Primary * Mac Coelho, DDS - Assisting Procedure Summary Anesthesia: General ASA: II Estimated Blood Loss: 250 mL Total IV Fluids: 1 L LDAs: Peripheral IV 08/17/22 1145 Left;Posterior Forearm (Active) Non-Surgical Airway (Active) Wound 08/17/22 Inner Mouth (Active) Implants Type Name Action Serial No. Plate Implant PLATE BONE CMF MANDIB CRV LCK GLD 6H 6MM LEIBINGER [id number] - [id number] Implanted Plate Implant PLATE BONE CMF MANDIB CRV LCK GLD 6H 6MM LEIBINGER [id number] - [id number] Implanted Screw Implant SCREW BONE CMF MANDIB ST GLD 2X4MM LEIBINGER [id number] - [id number] Implanted Screw Implant SCREW BONE CMF MANDIB ST GLD 2X5MM LEIBINGER [id number] - [id number] Implanted Screw Implant SCREW BONE CMF MANDIB ST GLD 2X4MM LEIBINGER [id number] - [id number] Implanted Screw Implant SCREW BONE CMF MANDIB ST GLD 2X5MM LEIBINGER [id number] - [id number] Implanted Plate Implant PLATE BONE 3MM RIGHT 10 HOLE ADVANCEMENT - [id number] Implanted Screw Implant SCREW BONE SLF TPNG FTHRD 1.9X03MM AXS [id number] - [id number] Implanted Screw Implant SCREW BONE CMF MANDIB SDR 1.7X4MM AXS [id number] - [id number] Implanted Screw Implant SCREW BONE CMF MDFACE SDR 1.7X6MM AXSST [id number] - [id number] Implanted Plate Implant PLATE BONE CMF MDFACE LFT GLD 5H 5MM LEIBINGER [id number] - [id number] Implanted Plate Implant PLATE BONE CMF MDFACE RGHT GLD 5H 5MM [id number] - [id number] Implanted Staff: Dragger Out: Lina Love, MIKEALA; Earlene Choi RN Relief Scrub: Shirley Trejo Scrub Person: Danial Matt Patient Sand Conditioner Machine: Leonor Matute Indications: April Lewis is an 42 y.o. female who is having surgery for maxillary hypoplasia/mandibular hyperplasia Findings: all intraoperative findings WNL Complications: None; patient tolerated the procedure well. Disposition: PACU - hemodynamically stable. Condition: stable Specimens Collected: Order Name Source Comment Collection Info Order Time TEST, URINE Urine, Random Urine Collected By: Claudia Ellis RN 08/17/2022 10:54 Results Release to Patient (Note: Choosing Manual Release will only block results from tests performed at [facility] and does not apply for Miscellaneous Test Order) Immediate via [employer] Portal Attending Attestation: I was present and scrubbed for the entire procedure JEANIE SNYDER William D, DDS Cosigned by Martínez Chi DDS at 08/17/2022 17:28 EST documented in this encounter Plan of Treatment Not on file documented as of this encounter Procedures Procedure Name Priority Date/Time Associated Diagnosis Comments IMPLANT RECORD - SCANNED 08/19/2022 7:47 EST RECONSTRUCTION, MANDIBLE, RAMUS AND/OR BODY, BY SAGITTAL SPLIT, WITH INTERNAL RIGID FIXATION 08/17/2022 12:30 EST Maxillary hypoplasia Mandibular hyperplasia Special Needs sonopet OSTEOTOMY, LE FORT I, INVOLVING MOVEMENT OF 1 SEGMENT, WITHOUT USING BONE GRAFT, FOR RECONSTRUCTION OF MIDFACE 08/17/2022 12:30 EST Maxillary hypoplasia Mandibular hyperplasia Special Needs sonopet TEST, URINE STAT 08/17/2022 11:13 EST documented in this encounter Results * IMPLANT RECORD - SCANNED (08/19/2022 7:47 EST) 08/19/2022 7:47 EST us Scan 2 Senior Web Services Developer PROCEDURE/MINOR SURGICAL OR DERABLES Final Result * TEST, URINE (08/17/2022 11:13 EST) Test, Urine Negative Negative 08/17/2022 11:27 EST [facility] Comment:False negative resul ts may occur in women who are beyond 5-8 weeks gestation. Diagnosis of should be based on a correlation of test results with typical clinical signs and symptoms. Urine URINE / Unknown Urine Collect / Unknown 08/17/2022 11:13 EST 08/17/2022 11:21 EST Misha Valdivia MD URINALYSIS ORDERABLES Final R esult Performing Organization Address City/State/[facility] Co de Phone Number [facility] [address] [place] [address] documented in this encounter Visit Diagnoses Diagnosis Maxillary hypoplasia- Primary Mandibular hyperplasia documented in this encounter Admitting Diagnoses Diagnosis Maxillary hypoplasia Mandibular hyperplasia documented in this encounter Administered Medications Inactive Administered Medications - up to 3 most recent administrations Medication Order MAR Action Action Date Dose Rate Site acetaminophen (TYLENOL) solution unit dose cup 650 mg 650 mg, oral, PRN, 1 dose, Starting on Wed08/17/22 at 1544, Until Wed08/17/22 at 1808, Pain, Routine, Recovery (only) Given 08/17/2022 18:08 EST 650 mg ceFAZolin (ANCEF) 1,000 mg in sodium chloride (NS MBP) 50 mL IVPB 1,000 mg, intravenous, Administer over 30 Minutes, EVERY 8 HOURS, 3 doses, First dose on Wed08/17/22 at 1730, Last dose on Wed08/18/22 at 0900, Routine Given 08/18/2022 8:26 EST 1,000 mg Given 08/18/2022 0:30 EST 1,000 mg Given 08/17/2022 17:22 EST 1,000 mg dextrose 5 %-0.45 % sodium chloride infusion 100 mL/hr, intravenous, CONTINUOUS, Starting on Wed08/17/22 at 2215, Until Wed08/18/22 at 1816, Routine Rate Change 08/18/2022 14:38 EST 20 mL/hr 20 mL/hr New Bag 08/18/2022 8:34 EST 100 mL/hr 100 mL/hr Rate Documented 08/18/2022 8:21 EST 100 mL/hr 100 mL/hr escitalopram oxalate (LEXAPRO) tablet 10 mg 10 mg, oral, DAILY, First dose on Wed08/18/22 at 0800, Until Discontinued, Routine Given 08/18/2022 8:24 EST 10 mg HYDROmorphone 1 mg/ml (DILAUDID) BUFFER INFLATED PAD syringe, 30 ml 0.2 mg, intravenous, BUFFER INFLATED PAD, Starting on Wed08/17/22 at 1615, Until Wed08/18/22 at 1816, See PRN bolus orders for breakthrough pain. CLICK to see order details, Routine, BUFFER INFLATED PAD Dose (mg): 0.2, Lockout Interval (minutes): 6, Maximum Limit (mg/hr): 2, Release Rate Documented 08/18/2022 8:21 EST New Bag 08/17/2022 23:02 EST 0.2 mg ketOROLAC (TORADOL) injection 15 mg 15 mg, intravenous, EVERY 6 HOURS, 4 doses, First dose on Wed08/17/22 at 2215, Last dose on Wed08/18/22 at 1615, Routine Given 08/18/2022 10:46 EST 15 mg Given 08/18/2022 3:43 EST 15 mg Given 08/17/2022 22:42 EST 15 mg lactated ringers (LR) infusion at 25 mL/hr, intravenous, CONTINUOUS, Starting on Wed08/17/22 at 1115, Until Wed08/18/22 at 1816, Routine, Preprocedure New Bag 08/17/2022 16:08 EST Restarted 08/17/2022 12:41 EST Continued by Anesthesia 08/17/2022 12:40 EST 25 mL/hr lactated ringers (LR) infusion at 75 mL/hr, intravenous, PACU CONTINUOUS, Starting on Wed08/17/22 at 1600, Until Wed08/17/22 at 2129, Routine, Recovery (only) Rate Documented 08/17/2022 16:15 EST 75 mL/hr methylPREDNISolone sod suc(PF) (SOLU-MEDROL) injection 125 mg 125 mg, intravenous, EVERY 6 HOURS, First dose on Wed08/17/22 at 1800, Until Discontinued, Routine Given 08/18/2022 12:56 EST 125 mg Given 08/18/2022 5:59 EST 125 mg Given 08/18/2022 0:25 EST 125 mg ondansetron (PF) (ZOFRAN) injection 8 mg 8 mg, intravenous, EVERY 8 HOURS PRN, Starting on Wed08/17/22 at 2242, Until Wed08/18/22 at 1816, Nausea, Routine Given 08/17/2022 22:45 EST 8 mg documented in this encounter Discontinued Medications Medication Sig Discontinue Reason Start Date End Da te FLUCELVAX QUAD 3126-7866 60 mcg (15 mcg x 4)/0.5 mL suspension INJECT ONCE 04/20/2019 08/18/2022 Multivitamins with Minerals tablet tablet Take 1 Tablet by mouth daily. 08/18/2022 documented as of this encounter Active and Recently Administered Medications Times are shown in EST. Scheduled Medication Order 08/16/2022 08/17/2022 08/18/2022 ceFAZolin (ANCEF) 1,000 mg in sodium chloride (NS MBP) 50 mL IVPB (COMPLETED) 1,000 mg, intravenous, Administer over 30 Minutes, EVERY 8 HOURS, 3 doses, First dose on Wed08/17/22 at 1730, Last dose on Wed08/18/22 at 0900, Routine 1722 (Given - Provider: Francine Romano, MIKAELA) 0030 (Given - Provider: Tess Ledesma RN)0826 (Given - Provider: Lorena Reaves RN) ceFAZolin (ANCEF) syringe 2 g (COMPLETED) 2 g, intravenous, Administer over 5 Minutes, PRE-OP ONCE, 1 dose, On Wed08/17/22 at 1115, Pre-Op, Preprocedure 1258 (Given - Provider: Eliezer Morales MD) escitalopram oxalate (LEXAPRO) tablet 10 mg 10 mg, oral, DAILY, First dose on Wed08/18/22 at 0800, Until Discontinued, Routine 0824 (Given - Provid er: Lorena Reaves RN) ketOROLAC (TORADOL) injection 15 mg 15 mg, intravenous, EVERY 6 HOURS, 4 doses, First dose on Wed08/17/22 at 2215, Last dose on Wed08/18/22 at 1615, Routine 2242 (Given - Provider: Tess Ledesma, MIKAELA) 0343 (Given - Provider: Tess Ledesma RN)1046 (Given - Provider: Lorena Reaves RN)1615 (Canceled Entry - Provider: Batch Job User Admin - Comment: Automatically canceled at discontinue of medication order) methylPREDNISolone sod suc(PF) (SOLU-MEDROL) injection 125 mg 125 mg, intravenous, EVERY 6 HOURS, First dose on Wed08/17/22 at 1800, Until Discontinued, Routine 1755 (Given - Provider: Francine Romano RN) 0025 (Given - Provider: Tess Ledesma RN)0559 (Given - Provider: Tess Ledesma RN)1256 (Given - Provider: Lorena Reaves RN)1800 (Canceled Entry - Provider: Batch Job User Admin - Comment: Automatically canceled at discontinue of medication order) Continuous Medication Order 08/16/2022 08/17/2022 08/18/2022 dextrose 5 %-0.45 % sodium chloride infusion 100 mL/hr, intravenous, CONTINUOUS, Starting on Wed08/17/22 at 2215, Until Wed08/18/22 at 1816, Routine 2308 (New Bag - Provider: Tess Ledesma RN) 0821 (Rate Documented - Provider: Lorena Reaves RN)0834 (New Bag - Provider: Lorena Reaves RN)1438 (Rate Change - Provider: Lorena Reaves RN) HYDROmorphone 1 mg/ml (DILAUDID) BUFFER INFLATED PAD syringe, 30 ml 0.2 mg, intravenous, BUFFER INFLATED PAD, Starting on Wed08/17/22 at 1615, Until Wed08/18/22 at 1816, See PRN bolus orders for breakthrough pain. CLICK to see order details, Routine, BUFFER INFLATED PAD Dose (mg): 0.2, Lockout Interval (minutes): 6, Maximum Limit (mg/hr): 2, Release 2302 (New Bag - Provider: Tess Ledesma RN) 0821 (Rate Documented - Provider: Lorena Reaves RN) lactated ringers (LR) infusion at 25 mL/hr, intravenous, CONTINUOUS, Starting on Wed08/17/22 at 1115, Until Wed08/18/22 at 1816, Routine, Preprocedure 1148 (New Bag - Provider: Claudia Ellis RN)1240 (Continued by Anesthesia - Provider: VANCE Galeas [facility])1240 (Paused - Provider: VANCE Galeas - Comment: Switch to gravity)1241 (Restarted - Provider: VANCE Galeas [facility])1548 (Anesthesia Volume Adjustment - Provider: VANCE Galeas)1608 (New Bag - Provider: VANCE Galeas [facility]) lactated ringers (LR) infusion (CANCELED) at 75 mL/hr, intravenous, PACU CONTINUOUS, Starting on Wed08/17/22 at 1600, Until Wed08/17/22 at 2129, Routine, Recovery (only) 1615 (Rate Documented - Provider: Erica Almaguer RN) PRN Medication Order 08/16/2022 08/17/2022 08/18/2022 acetaminophen (TYLENOL) solution unit dose cup 650 mg (COMPLETED)(Linked Group 1) 650 mg, oral, PRN, 1 dose, Starting on Wed08/17/22 at 1544, Until Wed08/17/22 at 1808, Pain, Routine, Recovery (only) 1808 (Given - Provider: Debbie Romano RN) lidocaine-EPINEPHrine 2 %-1:100,000 injection (CANCELED) PRN, Starting on Wed08/17/22 at 1311, Until Wed08/17/22 at 1621, Routine, Intraprocedure 1311 (Given - Provider: Martínez Chi DDS - Comment: intra oral)1406 (Given - Provider: Martínez Chi DDS - Comment: intra oral) naloxone (NARCAN) injection 0.1 mg 0.1 mg, intravenous, PRN, Starting on Wed08/17/22 at 1553, Until Wed08/18/22 at 1816, Opioid Reversal, Routine, Release ondansetron (PF) (ZOFRAN) injection 8 mg 8 mg, intravenous, EVERY 8 HOURS PRN, Starting on Wed08/17/22 at 2242, Until Wed08/18/22 at 1816, Nausea, Routine 2245 (Given - Provider: Tess Ledesma RN) Linked Groups Order Group 1: acetaminophen (TYLENOL) solution unit dose cup 650 mg (COMPLETED)Jump to med 650 mg, oral, PRN, 1 dose, Starting on Wed08/17/22 at 1544, Until Wed08/17/22 at 1808, Pain, Routine, Recovery (only) Or acetaminophen (TYLENOL) tablet 650 mg (COMPLETED) 650 mg, oral, PRN, 1 dose, Starting on Wed08/17/22 at 1544, Until Wed08/17/22 at 1808, Pain, Routine, Recovery (only) documented in this encounter Orders Medications Ordered That Rosales ht Not Have Been Administered Count Last Ordered Date First Ordered Date acetaminophen (TYLENOL) tablet 650 mg 1 atropine 0.1 mg/mL syringe 0.5 mg 2 023 ceFAZolin (ANCEF) syringe 2 g 1 08/17/2022 HYDROmorphone (PF) (DILAUDID ) 0.5 mg/0.5 mL syringe 0.3-0.5 mg 1 08/17/2022 lactated ringers (LR) infusion 1 08/17/2022 lidocaine (PF) 10 mg/mL (1 % ) injection 2 mg 1 08/17/2022 lidocaine-EPINEPHrine 2 %-1: 100,000 injection 1 08/17/2022 naloxone (NARCAN) injection 0.1 mg 1 2022 naloxone (NARCAN) injection 0.2 mg 2 2022 ondansetron (PF) (ZOFRAN) injection 4 mg 2 08/17/2022 Diet Count Last Ordered Date First Orde red Date DISCHARGE DIET 1 08/18/2022 Nursing Count Last Ordered Date First Orde red Date ACTIVITY INSTRUCTIONS 5 08/18/2022 BATHING INSTRUCTIONS 1 08/18/2022 WOUND CARE INSTRUCTIONS 1 08/18/2022 PATIENT AT LOW RISK FOR VTE: RISK OF MECHANICAL PROPHYLAXIS OUTWEIGHS 1 08/17/2022 PATIENT AT LOW RISK FOR VTE: RISK OF PHARMACOLOGIC PROPHYLAXIS OUTWEIG 1 08/17/2022 Admission Count Last Ordered Date First Orde red Date OUTPATIENT WITHOUT OBSERVATI ON SERVICES (EXTENDED STAY) 1 08/17/2022 Discharge Count Last Ordered Date First Orde red Date DISCHARGE PATIENT 2 08/18/2022 Legal Count Last Ordered Date First Orde red Date MISCELLANEOUS DISCHARGE INSTRUCTIONS 07/30 documented in this encounter Care Teams Measurement Specialist Relationship Specialty Start Date End Date Agustin Aguila MD [address] [place] [address] PCP - General 08/13/11 documented as of this encounter
--- OUTSIDE RECORDS SUMMARY | 2024-07-12 12:36 | XMS_ITS | Encounter Summary ---
Author Organization [facility] Address [address] [place] [address] Care Team Providers Care Stitch Cleaner Name Role Phone Unknown, Provider Primary Care Provider Unava ilable Encounter Details Date Type Department Care Team (Late st Contact Info) Description 07/07/2011 Results Only Imaging [facility] [phone] Cady Sung, [facility] [address] [facility],[address] [place], [place] [id number] Social History Tobacco Use Types Packs/Day Years [...] Procedure Name Priority Date/Time Associated Diagnosis Comments JAIL ULTRASCREEN (INCLUDES SEQUENTIAL SCREEN) 08/14/2011 13:52 EST documented in this encounter Results * JAIL ULTRASCREEN (08/14/2011 13:52 EST) Anatomical Region Laterality Modality Other 08/14/2011 13:5 2 EST 08/14/2011 14:19 EST Narrative 08/14/2011 14:19 EST Indication: Nuchal translucency screening. History: Age: 31 years. : 2 Para: 1. Previous pregnancies: Children born at term: 1. Living children: 1. Current : Pre- data: Weight 178 lbs. Height 5 ft 3 ins. BMI 31.6. Dating: LMP: 05/14/2011 EDC: 02/18/2012 GA by LMP: 13w1d Earlier Assessment on: 07/01/2011 EDC: 02/24/2012 GA by earlier assessment: 12w2d Current Scan on: 08/14/2011 EDC: 02/18/2012 GA by current scan: 13w1d Best Overall Assessment: 08/14/2011 EDC: 02/24/2012 Assessed GA: 12w2d The calculation of the gestational age by current scan was based on CRL. The Best Overall Assessment is based on an earlier assessment on 07/01/2011. First Trimester Scan: [place] gestation. Biometry: CRL 68.4 mm 93rd% 13w1d (12w0d to 14w1d) NT 2.20 mm Additional Markers for Risk Assessment: Nasal bone present. ?? Tricuspid flow not examined. ??Ductus Venosus (a-wave): Not examined. heart activity: Present. heart rate: 165 bpm. Summary of Ultrasound Findings: Transabdominal US. U/S machine: [employer] e8. U/S view: good. Report Summary: Impression: NOTE: This study was ordered as an NT ONLY so maternal and anatomy assessments were not performed. 06408 Nuchal translucency measurement This is a templeton gestation. Nuchal translucency is 2.2 mm. Omphalocele is not present. Note that ACOG Practice Bulletin 77 points out that the inclusion of second trimester serum markers improve detection rates for Down syndrome; however if you wish to combine second trimester analytes, you must send the serum to [facility] at 15-16 weeks'. They will reanalyze the results including both first and second trimester serum as well as nuchal translucency and maternal age. If you do not wish to include second trimester serum for aneuploidy screening, you may still send serum to [facility] for MSAFP alone to screen for neural tube defects and other obstetrics outcomes associated with an elevated MSAFP. Recommendations: Follow-up as clinically indicated. Growth Overview: Date GA BPD [mm] HC [mm] AC [mm] FL [mm] HUM [mm] EFW GP 08/14/2011 12 + 2 ... ... ... ... ... ... ... Procedure Note 08/14/2011 Indication: Nuchal translucency screening. History: Age: 31 years. : 2 Para: 1. Previous pregnancies: Children born at term: 1. Living children: 1. Current : Pre- data: Weight 178 lbs. Height 5 ft 3 ins. BMI 31.6. Dating: LMP: 05/14/2011 EDC: 02/18/2012 GA by LMP: 13w1d Earlier Assessment on: 07/01/2011 EDC: 02/24/2012 GA by earlier assessment: 12w2d Current Scan on: 08/14/2011 EDC: 02/18/2012 GA by current scan: 13w1d Best Overall Assessment: 08/14/2011 EDC: 02/24/2012 Assessed GA: 12w2d The calculation of the gestational age by current scan was based on CRL. The Best Overall Assessment is based on an earlier assessment on 07/01/2011. First Trimester Scan: [place] gestation. Biometry: CRL 68.4 mm 93rd% 13w1d (12w0d to 14w1d) NT 2.20 mm Additional Markers for Risk Assessment: Nasal bone present. Tricuspid flow not examined. Ductus Venosus (a-wave): Not examined. heart activity: Present. heart rate: 165 bpm. Summary of Ultrasound Findings: Transabdominal US. U/S machine: [employer] e8. U/S view: good. Report Summary: Impression: NOTE: This study was ordered as an NT ONLY so maternal and anatomy assessments were not performed. 13342 Nuchal translucency measurement This is a templeton gestation. Nuchal translucency is 2.2 mm. Omphalocele is not present. Note that ACOG Practice Bulletin 77 points out that the inclusion of second trimester serum markers improve detection rates for Down syndrome; however if you wish to combine second trimester analytes, you must send the serum to [facility] at 15-16 weeks'. They will reanalyze the results including both first and second trimester serum as well as nuchal translucency and maternal age. If you do not wish to include second trimester serum for aneuploidy screening, you may still send serum to [facility] for MSAFP alone to screen for neural tube defects and other obstetrics outcomes associated with an elevated MSAFP. Recommendations: Follow-up as clinically indicated. Growth Overview: Date GA BPD [mm] HC [mm] AC [mm] FL [mm] HUM [mm] EFW GP 08/14/2011 12 + 2 ... ... ... ... ... ... ... [facility] F inal Result documented in this encounter Visit Diagnoses Not on filedocumented in this encounter Care Teams Stitch Cleaner Relationship Specialty Start Date End Date Unknown, Provider, PCP - General 07/07/11 08/12/11 documented as of this encounter
--- OUTSIDE RECORDS SUMMARY | 2024-07-12 12:36 | XMS_ITS | Encounter Summary ---
Author Organization [facility] Address [address] [place] [address] Care Team Providers Care Didactic Program In Dietetics Director Name Role Phone Unknown, Provider Primary Care Provider Agustin Godwin MD Primary Care Provider [phone] Encounter Details Date Type Department Care Team (Late st Contact Info) Description 03/11/2011 Historical Results Only [facility] - Main [place] [address] [place], [place] [phone] Odalis Jacobson MD [address] [place] [address],[facility] [address] [place], [place] [phone] Social History Tobacco Use Types Packs/Day Years [...] Procedure Name Priority Date/Time Associated Diagnosis Comments PAP TEST Routine 03/11/2011 16:47 EDT documented in this encounter Results * PAP TEST (03/11/2011 16:47 EDT) 03/11/2011 16:4 7 EDT 03/12/2011 10:24 EDT Narrative [facility] - 03/16/2011 15:38 EDT ----- ------- Name: DENISEESTEBAN CAGE ?: 80 ?Age/Sex: 38/F ?Unit#: [id number] ? Loc: AGO ? Status: REG POV ?? Reg Date: 03/11/11 ? Pt.Phone Number: ? ----- ------- Specimen: [id number] ?STATUS: SOUT ?Spec Date:03/11/11 ? Physician Copies: ?Odalis Jacobson ? Tissues: ? Cervical/Endo Pap ?Agustin Aguila ? CPT: 63323 ?? Units: ??1 ----- ------- ? CYTOLOGY DIAGNOSIS SPECIMEN ADEQUACY: ?Satisfactory for evaluation. Transformation zone component ABSENT. GENERAL CATEGORIZATION: ?Negative for Intraepithelial Lesion or Malignancy DESCRIPTIVE DIAGNOSIS: ? Negative for Intraepithelial Lesion or Malignancy. RECOMMENDATIONS/COMMENTS: ?None. ----- ------- ?HPV DNA RESULTS ?? 03/11/11 1647 HPV DNA RESULT ??NEG ? Negative for HPV types 16, 18, 31, 33, 35, 39, 45, 51, 52, ? 56, 58, 59, 66, 68. ? Method: Cervista HPV HR (High Risk) DNA test. ----- ------- ORDER QUERIES: LMP: 02/17/11 - 02/17/11 ? N Post ? N ??PREVIOUS ATYPICAL: N BCP/HRT? Y Rad Rx? N IUD? N ??PAP PLUS HPV? Y ??REFLEX TO HR-HPV IF ASCUS ?? REFLEX TO HPV 16/18 IF HPV POS/PAP NEG ?? HPV REGARDLESS?RFLX HPV IF LSIL ?? IF ASCUS DO HPV? N Signed Sharri Gutierrez CT(ASCP) 03/16/11 By the signature above, the attending physician certifies that he/she has personally conducted a gross and/or microscopic examination of the described specimens and rendered or confirmed the above diagnosis. Test Performed by [facility], [address] [place] [address] Wig Maker: Jovita Hernandez MD PHD ----- ------- us Odalis Jacobson MD PATHOLOGY ORDERABLES Final Res ult [facility] documented in this encounter Visit Diagnoses Not on filedocumented in this encounter Care Teams Didactic Program In Dietetics Director Relationship Specialty Start Date End Date Unknown, Provider, PCP - General 07/07/11 08/12/11 Agustin Aguila MD [address] [place] [address] PCP - General 08/13/11 documented as of this encounter
--- OUTSIDE RECORDS SUMMARY | 2024-07-12 12:36 | XMS_ITS | Encounter Summary ---
Author Organization [facility] Address [address] [place] [address] Care Team Providers Care Cat Scan Technologist Name Role Phone Agustin Aguila MD Primary Care Provider [phone] Encounter Details Date Type Department Care Team (Late st Contact Info) Description 07/17/2022 Prep for Procedure [facility] [address] [place], [place] [id number] Martínez Chi, EMERITA [address] [place] [phone] Maxillary hypoplasia (Primary Dx); Mandibular hyperplasia Social History Tobacco Use Types Packs/Day Years Used Date Smoking Tobacco: Never Assessed Interpersonal Safety Answer Date Record ed Physically [...] documented as of this encounter Visit Diagnoses Diagnosis Maxillary hypoplasia- Primary Mandibular hyperplasia documented in this encounter Orders Case Request Count Last Ordered Date First Orde red Date CASE REQUEST OPERATING ROOM 1 07/17/2022 documented in this encounter Care Teams Cat Scan Technologist Relationship Specialty Start Date End Date Agustin Aguila MD [address] [place] [address] PCP - General 08/13/11 documented as of this encounter
--- OUTSIDE RECORDS SUMMARY | 2024-07-12 12:36 | XMS_ITS | Encounter Summary ---
Author Organization [facility] Address [address] [place] [address] Care Team Providers Care Hog Counter Name Role Phone Agustin Aguila MD Primary Care Provider [phone] Encounter Details Date Type Department Care Team (Late st Contact Info) Description 02/15/2012 Historical Results Only [facility] - Main [place] [address] [place] [address] Darlyn Claros MD [address] [place] [address], [address] [place] [address] Social History Tobacco Use Types Packs/Day Years [...] Procedure Name Priority Date/Time Associated Diagnosis Comments SURGICAL PATHOLOGY Routine 02/15/2012 documented in this encounter Results * SURGICAL PATHOLOGY (02/15/2012) 02/15/2012 02/16/2012 10: 12 EDT Narrative [facility] - 02/17/2012 11:51 EDT ----- ------- Name: ESTEBAN CONNER ?: 80 ?Age/Sex: 38/F ?Unit#: [id number] ? Loc: OBS ? Status: DIS IN ? Reg Date: 02/15/12 ? Pt.Phone Number: ? ----- ------- Specimen: [id number] ? STATUS: SOUT ?Spec Date:02/15/12 ? Physician Copies: ?Hyacinth,Darlyn GUZMAN ?? Tissues: A ?? Female Reproductive System (FALLOPIAN TUBES, R ?? L) ? CPT: 37231 ?? Units: ??1 ?FINAL DIAGNOSIS ? Fallopian tubes, right and left, bilateral tubal ligation; ? - No pathologic features, complete cross section of each obtained. ? GROSS DESCRIPTION ? Received in formalin labeled with the patient's name and portion right and ? left fallopian tubes are two segments of milton pink tissue, each grossly ? consistent with fallopian tubes, one measuring 1 cm long and the other 1.5 cm, ? each 0.7 cm in diameter. ??Cross-sectioning of each shows a tubular lumen, r.s. ? 1. ??CP ?? PREOP DX/CLINICAL HISTORY ?PREV C SECTION/BILAT TUBAL LIGATION Signed ____(signature on file)____ Jovita Hernandez M.D. 02/17/12 By the signature above, the attending physician certifies that he/she has personally conducted a gross and/or microscopic examination of the described specimens and rendered or confirmed the above diagnosis. Test Performed by [facility], [address] [place] [address] Mortar Worker: Jovita Hernandez MD PHD ----- ------- Darlyn Claros MD PATHOLOGY ORDERABLES Final Re sult [facility] documented in this encounter Visit Diagnoses Not on filedocumented in this encounter Care Teams Hog Counter Relationship Specialty Start Date End Date Agustin Aguila MD [address] [place] [id number] PCP - General 08/13/11 documented as of this encounter
--- OUTSIDE RECORDS SUMMARY | 2024-07-12 12:36 | XMS_ITS | Encounter Summary ---
Author Organization [facility] Address [address] [place] [address] Care Team Providers Care Bath Mixer Name Role Phone Agustin Aguila MD Primary Care Provider [phone] Encounter Details Date Type Department Care Team (Latest Contact Info) Description 10/09/2021 Lab Requisition [facility] Pathology & Laboratory Medicine - [facility] [address] [place] [address] Gerda Matute FNP [address] [place] [address] [address] [place] [id number] Encounter for general adult medical examination without abnormal findings; Encounter for screening for malignant neoplasm of cervix; Encounter for gynecological examination (general) (routine) without abnormal findings Social History Tobacco Use Types Packs/Day Years [...] Priority Date/Time Associated Diagnosis Comments PAP TEST Today 10/07/2021 3:50 EDT Encounter for general adult medical examination without abnormal findings Encounter for screening for malignant neoplasm of cervix Encounter for gynecological examination (general) (routine) without abnormal findings HPV DNA DETECTION WITH GENOTYPING, PCR Today 10/07/2021 3:50 EDT Encounter for general adult medical examination without abnormal findings Encounter for screening for malignant neoplasm of cervix Encounter for gynecological examination (general) (routine) without abnormal findings documented in this encounter Results * HUMAN PAPILLOMAVIRUS (HPV) DETECTION-HIGH RISK TYPES (10/07/2021 3:50 EDT) HPV other High Risk types, PCR Negative Negative 10/14/2021 7:32 EDT [facility] Comment:No E6 or E7 mRNA is detected from HPV types 16,18,31,33,35,39,45,51,52,56,58,59,66, and 68 by developmental training counselor mediated amplification. Papanicolaou smear specimen (specimen) CERVIX UTERI STRUCTURE / Unknown 10/07/2021 3:50 EDT 10/13/2021 10:06 EDT Gerda CACERESP MICROBIOLOGY - GENERAL ORDERABLE S Final Result [facility] [address] [place] [address] * PAP TEST (10/07/2021 3:50 EDT) Specimens A. Cervix and/or Endocervix , ThinPrep Imaging System with Manual Evaluation 10/14/2021 7:32 [facility] Specimen Adequacy Satisfactory for Evaluation - transformation zone component present 10/14/2021 7:32 [facility] General Categorization Negative for intraepithelial lesion or malignancy 10/14/2021 7:32 [facility] Attestation . 10/14/2021 7:32 [facility] at 0732 Clinical History SEE BELOW 10/15/19 7:32 [facility] HPV The result for the Human Papillomavirus (HPV) Detection-High Risk Types is Negative. No E6 or E7 mRNA is detected from HPV types 16,18,31,33,35,39 ,45,51,52,56,58,5 9,66, and 68 by developmental training counselor mediated amplification.Char ting was performed on specimen [id number] and was resulted on 10/14/2021 0714 EDT by LISANDRO, LAB INSTRUMENT RESULTS IN 10/14/2021 7:32 EDT [facility] Performing Lab [facility] 10/14/2021 7:32 EDT [facility] Scanned Images 10/14/2021 7:32 EDT [facility] Papanicolaou smear specimen (specimen) CERVIX UTERI STRUCTURE / Unknown 10/07/2021 3:50 EDT 10/09/2021 13:06 EDT Gerda Matute SPORTS EQUIPMENT REPAIRER PATHOLOGY ORDERABLES Final Resul t [facility] [address] [place] [address] documented in this encounter Visit Diagnoses Diagnosis Encounter for general adult medical examination without abnormal findings Unspecified general medical examination Encounter for screening for malignant neoplasm of cervix Screening for malignant neoplasm of the cervix Encounter for gynecological examination (general) (routine) without abnormal findings documented in this encounter Care Teams Bath Mixer Relationship Specialty Start Date End Date Agustin Aguila MD [address] [place] [address] PCP - General 08/13/11 documented as of this encounter
--- OUTSIDE RECORDS SUMMARY | 2024-07-12 12:36 | XMS_ITS | Encounter Summary ---
Author Organization [facility] Address [address] [place] [address] Care Team Providers Care Strategic Partnership Manager Name Role Phone Agustin Aguila MD Primary Care Provider [phone] Reason for Visit * Auth/Cert (Routine) Specialty [...] Expiration Date Visits Re quested Visits Authorized [id number] 1 1 Encounter Details Date Type Department Care Team (Late st Contact Info) Description 08/17/2022 12:20 EST - 08/17/2022 16:[address] [facility] OR [address] [place] [address] Martínez Chi, EMERITA [address] [place] [address] [place] [phone] [place] 1 osteotomy with maxillary advancement and rigid fixation [16309 (CPT??)] Surgery Details Date/Time Status Location OR Service Patient Class Case Class Case Type Trauma Case? 08/17/2022 1220 Posted [facility] 02 Oral Surgery Extended Stay H - Elective Panel 1 Procedure LRB Anes Op Region Wound Class Comments [place] 1 osteotomy with maxillary advancement and rigid fixation Bilateral General Mouth Class II/ Zach an Contaminated Bilatertal sagittal split osteotomy with mandibular advancement aqnd rigid fixation Bilateral General Mouth Class II/ Cl brennen Contaminated Surgeon Surgeon Role Service Panel Martínez Chi DDS Primary Oral Surgery 1 Mac Coelho DDS Assisting Maxillofacial 1 Special Needs sonopet documented in this encounter Social History Tobacco Use Types Packs/Day Years [...] Sign Reading Time Taken Comments Blood Pressure 119/83 08/17/2022 1114 EST Pulse - - Temperature 37.1 ??C (98.8 ??F) 08/17/2022 1114 EST Respiratory Rate 15 08/17/2022 1114 EST Oxygen Saturation 96% 08/17/2022 1114 EST Inhaled Oxygen Concentration - - Weight 86.1 kg (189 lb 13.1 oz) 08/17/2022 1119 EST Height 160 cm (5' 3) 08/17/2022 1119 EST Body Mass Index 33.62 08/17/2022 1119 EST documented in this encounter Discharge Summaries * Rylee Villeda - 08/18/2022 1615 EST Discharge Summary Chief [...] % Hospital Course: The patient presented to [facility] on 08/17/2022 for management of Maxillary hypoplasia/ mandibular hyperplasia . The patient was admitted the day of surgery. The surgery was unremarkable and the outcome was satisfactory. Postoperatively, the patient was sent to PACU for monitoring and then to [facility] for recovery. The patient remained stable throughout [...] Code Departure Means Destination Home or Self Usp documented in this encounter Progress Notes * Rylee Villeda - 08/18/[address] [facility] Surgery DAILY PROGRESS NOTE SUBJECTIVE: Patient POD [...] oral DAILY ??? HYDROmorphone 1 mg/ml (DILAUDID) DUCK BILL OPERATOR syringe, 30 ml intravenous DUCK BILL OPERATOR ??? ketOROLAC (TORADOL) injection 15 mg intravenous Q6H ??? lactated ringers (LR) infusion intravenous CONTINUOUS ??? methylPREDNISolone sod suc(PF) (SOLU-MEDROL) injection 125 mg intravenous Q6H ??? naloxone (NARCAN) injection 0.1 mg intravenous PRN ??? ondansetron (PF) (ZOFRAN) injection 8 mg intravenous Q8H PRN Physical Exam: On rounding with OMFS attending, Dr. Chi, the patient was lying [...] afternoon. RYLEE VILLEDA DMD Cosigned by Martínez hCi DDS at 08/26/2022 11:07 EST * Jax Dao RN - 08/18/2022 1025 EST April Lewis 1980 [place] I osteotomy with maxillary advancement and rigid fixation Bilateral sagittal split osteotomy with mandibular setback and rigid fixation Chart review completed and discussed the plan of care with the direct care RN and/or primary care team. Primary Insurance: [facility] State Employee Patient with no apparent Case Management needs at this time. No housing, transportation, insurance,resources concerns identified at this time. Supports in place to achieve a safe post-hospital transition. No identified barriers to accessing necessary care and/or follow-up after discharge. art museum aide/Tube And Manifold Builder will continue to follow patient's progress and remain available if situation changes for coordination of care, psychosocial support and/or discharge planning. Jax Dao RN, MSN, [facility] Case Management & Bank Secrecy Act Officer [address] [address] pager [phone] JAX DAO RN 08/18/2022 10:30 documented in [...] a vertical reference for maxillary position. A [place] gauge was then used to measure from [...] was through to medullary bone. A [place] senior controls technician was placed in thesagittal cut and a [...] using a double-ended dental curette and a [employer] elevator. Horizontal osteotomy was then completed, extending [...] with the superior segment was obtained. The Jolene gauge was then used to measure the [...] retained. Martínez Chi DDS / AW Confirmation: [id number] Dictation ID: [id number] cc: documented in this encounter Miscellaneous Notes * Plan of Care - Lorena Reaves RN - 08/18/2022 1613 EST 08/18/22 Status at discharge, nursing note Data: at start of shift today, pt c/o bilat jaw/face pain of 2/10. Pt was using dilaudid building serviceman minimally, and receiving iv toradol and prednisolone Q6. Pt used her double facial ice pack throughout theday. She was rather drowsy, but was alert enough to walk to for voids at 08 and again at [...] pt left for d/c to home In at 1615 w/the assistance of her mother. LORENA REAVES RN 08/18/2022 16:14 * Plan of Care - Tess Ledesma RN - 08/18/2022 0429 EST Problem: Daily Care Plan Goals Goal: Care Plan Documentation Outcome: Met This Shift Data: April came shep3 around 5. POD#0 s/p [place] osteotomy with maxillary advancement with rigid fixation. Noted facial swelling, ice pack in place. Zofran given for nausea x1. Tolerating clear liquid diet. BS hypoactive, no flatus at this time. Pain rating climbed from 5/10 to 10/10, DUCK BILL OPERATOR started and scheduled toradol given, now adequately [...] - 08/17/2022 1601 EST Date: 08/17/2022 Location: [facility] OR Name: April Lewis, : 1980, Diagnosis [...] MANDIB CRV LCK GLD 6H 6MM LEIBINGER [id number] - [id number] Implanted Plate Implant PLATE BONE CMF MANDIB CRV LCK GLD 6H 6MM LEIBINGER [id number] - [id number] Implanted Screw Implant SCREW BONE CMF MANDIB ST GLD 2X4MM LEIBINGER [id number] - [id number] Implanted Screw Implant SCREW BONE CMF MANDIB ST GLD 2X5MM LEIBINGER [id number] - [id number] Implanted Screw Implant SCREW BONE CMF MANDIB ST GLD 2X4MM LEIBINGER [id number] - [id number] Implanted Screw Implant SCREW BONE CMF MANDIB ST GLD 2X5MM LEIBINGER [id number] - [id number] Implanted Plate Implant PLATE BONE 3MM RIGHT 10 HOLE ADVANCEMENT - [id number] Implanted Screw Implant SCREW BONE SLF TPNG FTHRD 1.9X03MM AXS 1349012 - [id number] Implanted Screw Implant SCREW BONE CMF MANDIB SDR 1.7X4MM AXS [id number] - [id number] Implanted Screw Implant SCREW BONE CMF MDFACE SDR 1.7X6MM AXSST [id number] - [id number] Implanted Plate Implant PLATE BONE CMF MDFACE LFT GLD 5H 5MM LEIBINGER [id number] - [id number] Implanted Plate Implant PLATE BONE CMF MDFACE RGHT GLD 5H 5MM LEIBINGER [id number] - [id number] Implanted Staff: Strategic Planner: Lina Love RN; Earlene Choi RN Relief Scrub: Shirley Trejo Scrub Person: Danial Matt Patient Aging Room Operator: Leonor Matute Indications: April Lewis is an [...] only block results from tests performed at [facility] and does not apply for Miscellaneous Test Order) Immediate via MyChart Portal Attending Attestation: I was present and [...] EST) 08/19/2022 7:47 EST us Scan 2 Shirring Machine Operator Automatic PROCEDURE/MINOR SURGICAL OR DERABLES Final Result * TEST, URINE (08/17/2022 11:13 EST) Test, Urine Negative Negative 08/17/2022 11:27 EST [facility] Comment:False negative resul ts may occur in women who are beyond 5-8 weeks gestation. Diagnosis of should be based on a correlation of test results with typical clinical signs and symptoms. 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 CLICK to see order details, Routine, DUCK BILL OPERATOR Dose (mg): 0.2, Lockout Interval (minutes): 6, [...] Rate Documented 08/17/2022 16:15 EST 75 mL/hr lidocaine-EPINEPHrine 2 %-1:100,000 injection PRN, Starting on Wed08/17/22 at 1311, Until Wed08/17/22 at 1621, Routine, Intraprocedure Given 08/17/2022 14:06 EST 10 mL Given 08/17/2022 13:11 EST 10 mL methylPREDNISolone sod suc(PF) (SOLU-MEDROL) injection 125 mg [...] Start Date End Da te FLUCELVAX QUAD 9486-0322 60 mcg (15 mcg x 4)/0.5 mL [...] 0900, Routine 1722 (Given - Provider: Francine Romano RN) 0030 (Given - Provider: Tess Ledesma, MIKAELA)0826 (Given - Provider: Lorena Reaves RN) ceFAZolin [...] 1615, Routine 2242 (Given - Provider: Tess Ledesma RN) 0343 (Given - Provider: Tess Ledesma RN)1046 [...] Tess Ledesma RN)0559 (Given - Provider: Tess Ledesma, MIKAELA)1256 (Given - Provider: Lorena Reaves RN)1800 (Canceled [...] Lorena Reaves RN) HYDROmorphone 1 mg/ml (DILAUDID) DUCK BILL OPERATOR syringe, 30 ml 0.2 mg, intravenous, DUCK BILL OPERATOR, Starting on Wed08/17/22 at 1615, Until Wed08/18/22 at 1816, See PRN bolus orders for breakthrough pain. CLICK to see order details, Routine, DUCK BILL OPERATOR Dose (mg): 0.2, Lockout Interval (minutes): 6, Maximum Limit (mg/hr): 2, Release 2302 (New Bag - Provider: Tess Ledesma RN) 0821 (Rate Documented - Provider: Lorena Reaves RN) lactated ringers (LR) infusion at 25 mL/hr, intravenous, CONTINUOUS, Starting on Wed08/17/22 at 1115, Until Wed08/18/22 at 1816, Routine, Preprocedure 1148 (New Bag - Provider: Claudia Ellis RN)1240 (Continued by Anesthesia - Provider: VANCE Galeas [facility])1240 (Paused - Provider: VANCE Galeas - Comment: Switch to gravity)1241 (Restarted - Provider: VANCE Galeas)1548 (Anesthesia Volume Adjustment - Provider: VANCE Galeas [facility])1608 (New Bag - Provider: VANCE Galeas [facility]) lactated ringers (LR) infusion (CANCELED) at 75 [...] % ) injection 2 mg 1 08/17/2022 naloxone (NARCAN) injection 0.1 mg [...] First Orde red Date MISCELLANEOUS DISCHARGE INSTRUCTIONS 1 07/30 documented in this encounter Care Teams Strategic Partnership Manager Relationship Specialty Start Date End Date Agustin Aguila MD [address] [place] [address] PCP - General 08/13/11 documented as of this encounter
--- OUTSIDE RECORDS SUMMARY | 2024-07-12 12:36 | XMS_ITS | Encounter Summary ---
Author Organization [facility] Address [address] [place] [address] Care Team Providers Care Belt Tender Name Role Phone Agustin Aguila MD Primary Care Provider [phone] Encounter Details Date Type Department Care Team (Late st Contact Info) Description 04/11/2018 Historical Results Only [facility] Lab - Main [address] [id number] Joseph Ortiz MD Social History Tobacco Use Types Packs/Day Years [...] Procedure Name Priority Date/Time Associated Diagnosis Comments BACTERIAL CULTURE/SMEAR, RESPIRATORY Routine 04/11/2018 14:24 EDT documented in this encounter Results * BACTERIAL CULTURE/SMEAR, RESPIRATORY (04/11/2018 14:24 EDT) GRAM STAIN - [facility] TWO SWABS RECEIVED FOR CULTURE AND GRAM STAIN 04/11/2018 22:30 EDT [facility] BACTERIA SEEN - [facility] NO 04/11/2018 22:30 EDT [facility] [place] [facility] USF 04/13/2018 11:51 EDT [facility] QUANT - [facility] FEW 04/13/2018 11:51 EDT [facility] 04/11/2018 14:2 4 EDT 04/11/2018 18:19 EDT us Joseph Ortiz MD MICROBIOLOGY - GENERAL ORD ERABLES Final Result [facility] documented in this encounter Visit Diagnoses Not on filedocumented in this encounter Care Teams Belt Tender Relationship Specialty Start Date End Date Agustin Aguila MD [address] [place] [address] PCP - General 08/13/11 documented as of this encounter
--- OUTSIDE RECORDS SUMMARY | 2024-07-12 12:36 | XMS_ITS | Referral Summary ---
Author Organization [facility] Address [address] [place] [address] Care Team Providers Care Clean Out Driller Name Role Phone Agustin Aguila MD Primary Care Provider Allergies No known active allergies Medications escitalopram [...] (07/17/2022): Added automatically from request for surgery [id number] Mandibular hyperplasia 07/17/2022 Overview (07/17/2022): Added automatically from request for surgery [id number] Social History Tobacco Use Types Packs/Day Years [...] 8:50 EST Sexual Orientation Not on file Last Filed Vital Signs Vital Sign Reading [...] 33.62 08/17/2022 1119 EST Plan of Treatment Not on file Medical Devices Implanted Type Area Supervisor Gear Repair Device Identifier Shelf Expiration Date Model / Serial / Lot Plate Bone Cmf Mandib Crv Lck Gld 6h 6mm Leibingkaur [id number] - [id number] Implanted:Qty: 1 on 08/17/2022 by Martínez Chi DDS at [facility] Plate Implant Right: Mandible JUAN ANTONIO LEIBINGER [id number] / / Plate Bone Cmf Mandib Crv Lck Gld 6h 6mm Josebingkaur [id number] - [id number] Implanted:Qty: 1 on 08/17/2022 by Martínez Chi DDS at [facility] Plate Implant Left: Mandible JUAN ANTONIO LEIBINGER [id number] / / Plate Bone 3mm Right 10 Hole Advancement - [id number] Implanted:Qty: 1 on 08/17/2022 by Martínez Chi DDS at [facility] Plate Implant Right: Hard Palate JUAN ANTONIO LEIBINGER [id number] / / Plate Bone Cmf Mdface Lft Gld 5h 5mm Josebingkaur [id number] - [id number] Implanted:Qty: 1 on 08/17/2022 by Martínez Chi DDS at [facility] Plate Implant Right: Hard Palate JUAN ANTONIO LEIBINGER [id number] / / Plate Bone Cmf Mdface Rght Gld 5h 5mm Leibinger [id number] - [id number] Implanted:Qty: 1 on 08/17/2022 by Martínez Chi DDS at [facility] Plate Implant Right: Hard Palate JUAN ANTONIO LEIBINGER [id number] / / Plate Bone 5mm Left 10 Hole Advancement - [id number] Implanted:Qty: 1 on 08/17/2022 by Martínez Chi DDS at [facility] Plate Implant Left: Hard Palate JUAN ANTONIO LEIBINGER [id number] / / Screw Bone Cmf Mandib St Gld 2x5mm Leibinger [id number] - [id number] Implanted:Qty: 4 on 08/17/2022 by Martínez Chi DDS at [facility] Screw Implant Right: Mandible JUAN ANTONIO LEIBINGER [id number] / / Screw Bone Slf Tpng Fthrd 1.9x03mm Axs [id number] - [id number] Implanted:Qty: 1 on 08/17/2022 by Martínez Chi DDS at [facility] Screw Implant Right: Hard Palate JUAN ANTONIO LEIBINGER [id number] / / Screw Bone Cmf Mandib Sdr 1.7x4mm Axs [id number] - [id number] Implanted:Qty: 21 on 08/17/2022 by Martínez Chi DDS at [facility] Screw Implant Right: Hard Palate JUAN ANTONIO LEIBINGER [id number] / / Screw Bone Cmf Mdface Sdr 1.7x6mm Axsst [id number] - [id number] Implanted:Qty: 2 on 08/17/2022 by Martínez Chi DDS at [facility] Screw Implant Right: Hard Palate JUAN ANTONIO LEIBINGER [id number] / / Screw Bone Cmf Mandib St Gld 2x4mm Leibinger [id number] - [id number] Implanted:Qty: 3 on 08/17/2022 by Martínez Chi DDS at [facility] Screw Implant Left: Mandible JUAN ANTONIO LEIBINGER [id number] / / Screw Bone Cmf Mandib St Gld 2x5mm Leibinger [id number] - [id number] Implanted:Qty: 3 on 08/17/2022 by Martínez Chi DDS at [facility] Screw Implant Left: Mandible JUAN ANTONIO LEIBINGER [id number] / / Screw Bone Cmf Mandib St Gld 2x4mm Leibinger [id number] - [id number] Implanted:Qty: 2 on 08/17/2022 by Martínez Chi DDS at [facility] Screw Implant Right: Mandible JUAN ANTONIO LEIBINGER [id number] / / Insurance Advance Directives For more information, please contact: [phone] * Full Code (Latest Code Status on [...] Who Made the Decision? Patient Care Teams Clean Out Driller Relationship Specialty Start Date End Date Agustin Aguila MD [address] [place] [address] [facility] - General 08/13/11
--- OUTSIDE RECORDS SUMMARY | 2024-07-12 12:36 | XMS_ITS | Encounter Summary ---
Author Organization [facility] Address [address] [place] [address] Care Team Providers Care Sound Technician Supervisor Name Role Phone Agustin Aguila MD Primary Care Provider [phone] Encounter Details Date Type Department Care Team (Latest Contact Info) Description 08/12/2022 14:30 EST - 08/12/2022 23:59 EST Hospital Encounter [facility] Pre-Surgical Testing [address], [place] [id number] Discharge Disposition: Home or Self Care Social [...] Sign Reading Time Taken Comments Blood Pressure - - Pulse - - Temperature - - Respiratory Rate - - Oxygen Saturation - - Inhaled Oxygen Concentration - - Weight 81.6 kg (180 lb) 08/12/2022 1440 EST Height 160 cm (5' 3) 08/12/2022 1440 EST Body Mass Index 31.89 08/12/2022 1440 EST documented in this encounter Medications at [...] for 7 days. 210 mL 08/18/2022 3 FLUCELVAX QUAD 5813-2490 60 mcg (15 mcg x 4)/0.5 mL suspension INJECT ONCE 04/20/2019 3 Multivitamins with Minerals tablet tablet Take 1 Tablet by mouth daily. 3 documented as of this encounter Discharge Disposition Disposition Code Departure Means Destination Home or Self Care documented in this encounter Plan of Treatment Not on file documented as of this encounter Visit Diagnoses Not on filedocumented in this encounter Historical Medications * This list may reflect changes made after this encounter. escitalopram oxalate (LEXAPRO) 10 mg tablet Take 10 mg by mouth daily. 07/21/2022 Multivitamins with Minerals tablet tablet Take 1 Tablet by mouth daily. 08/18/2022 added in this encounter Care Teams Sound Technician Supervisor Relationship Specialty Start Date End Date Agustin Aguila MD [address] [place] [address] PCP - General 08/13/11 documented as of this encounter
--- OUTSIDE RECORDS SUMMARY | 2024-07-12 12:36 | XMS_ITS | Encounter Summary ---
Author Organization [facility] Address [address] [place] [address] Care Team Providers Care Nursing Staff Development Coordinator Name Role Phone Agustin Aguila MD Primary Care Provider [phone] Encounter Details Date Type Department Care Team (Late st Contact Info) Description 10/08/2021 Lab Requisition [facility] Pathology & Laboratory Medicine - [address] [address] Outr Resulting Lab, Provider Social History Tobacco Use Types Packs/Day Years [...] Procedure Name Priority Date/Time Associated Diagnosis Comments CHLAMYDIA/N. GONORRHOEAE AMPLIFIED NUCLEIC ACID, THINPREP Routine 10/07/2021 15:50 EDT documented in this encounter Results * CHLAMYDIA/N. GONORRHOEAE AMPLIFIED RNA, THINPREP (10/07/2021 15:50 EDT) Neisseria gonorrhoeae Result Negative Negative 10/09/2021 13:49 EDT [facility] Chlamydia trachomatis Result Negative Negative 10/09/2021 13:49 EDT [facility] Papanicolaou smear specimen (specimen) CERVIX UTERI STRUCTURE / Unknown 10/07/2021 15:50 EDT 10/09/2021 8:22 EDT us Provider Outr Resulting Lab MICROBIOLOGY - GENER AL ORDERABLES Final Result Performing Organization Address City/State/[facility] Co de Phone Number [facility] [address] [place] [address] documented in this encounter Visit Diagnoses Not on filedocumented in this encounter Care Teams Nursing Staff Development Coordinator Relationship Specialty Start Date End Date Agustin Aguila MD [address] [place] [address] PCP - General 08/13/11 documented as of this encounter
--- OUTSIDE RECORDS SUMMARY | 2024-07-12 12:36 | XMS_ITS | Encounter Summary ---
Author Organization [facility] Address [address] [place] [address] Care Team Providers Care Service Car Operator Name Role Phone Agustin Aguila MD Primary Care Provider [phone] Encounter Details Date Type Department Care Team (Late st Contact Info) Description 08/14/2011 - 08/14/2011 23:59 EST Hospital Encounter [address] [address] Laith Gann MD [address] [facility], [address] [place] [id number] Social History Tobacco Use Types Packs/Day Years Used Date Smoking Tobacco: Never Assessed Comments Unknown Sex and Gender Information Value Date Recorded Sex Assigned at Not on file Legal Sex Female 18:54 EST Gender Identity Female 08/12/2022 8:50 EST Sexual Orientation Not on file documented as of this encounter Miscellaneous Notes * Scanned Note-Null - Engineering Manager, Scan - 08/17/2011 0850 EST documented in this encounter Plan of Treatment Not on file documented as of this encounter Visit Diagnoses Not on filedocumented in this encounter Care Teams Service Car Operator Relationship Specialty Start Date End Date Agustin Aguila MD [address] [place] [address] PCP - General 2/16/12 documented as of this encounter
--- OUTSIDE RECORDS SUMMARY | 2024-07-12 12:36 | XMS_ITS | Encounter Summary ---
Author Organization [facility] Address [address] [place] [address] Care Team Providers Care Soup Person Name Role Phone Agustin Aguila MD Primary Care Provider [phone] Reason for Visit * Reason Comments Cough Encounter Details Date Type Department Care Team (Late st Contact Info) Description 07/11/2019 13:30 EST Walk-In [facility] - [facility] [address] [phone] Sophia Guevara NP [address] [facility] [address] [place] [id number] Viral URI with cough (Primary Dx) Social History Tobacco Use Types Packs/Day Years Used Date Smoking Tobacco: Never Assessed Comments Unknown Sex and Gender Information Value Date Recorded Sex Assigned at Not on file Legal Sex Female 18:54 EST Gender Identity Female 08/12/2022 8:50 EST Sexual Orientation Not on file documented as of this encounter Last Filed Vital Signs Vital Sign Reading Time Taken Comments Blood Pressure 116/86 07/11/2019 1402 EST Pulse 92 07/11/2019 1402 EST Temperature 37.1 ??C (98.7 ??F) 07/11/2019 1402 EST Respiratory Rate 20 07/11/2019 1402 EST Oxygen Saturation 96% 07/11/2019 1402 EST Inhaled Oxygen Concentration - - Weight - - Height - - Body Mass Index - - documented in this encounter Ordered Prescriptions Prescription Sig Dispense Quantity Refills Last Filled Start Date End Date benzonatate (TESSALON) 100 mg capsuleIndications :Viral URI with cough Take 1 Cap by mouth 3 times daily as needed for up to 7 days for Cough. 21 Cap 07/11/2019 0 fluticasone propionate (FLONASE) 50 mcg/actuation nasal sprayIndications:V iral URI with cough Instill 1 [place] into both nostrils daily for 14 days. 1 Bottle 07/11/2019 0 guaifenesin-codein e (GUAIFENESIN AC) 100-10 mg/5 mL liquidIndications: Viral URI with cough Take 5 mL by mouth every 4 hours as needed for up to 7 days for Cough. Daily Max: 30 mL 120 mL 07/11/2019 0 documented in this encounter Progress Notes * Sophia Guveara, ROYCE - 07/11/2019 1330 EST [facility] Express Care Chief Complaint(s): Chief Complaint Patient presents with ??? Cough HPI: April Lewis is a 38 y.o. year-old female presenting for concern of cough x 1.5 weeks . Started with dry eyes and a scratchy throat. The cough is productive in the morning. Dry during the day. Activity makes it worse. Worse in morning has been up since 3:30. Treatments: Robitussin and ricola No tylenol or ibuprofen today Smoker: No Asthma: No COPD: No Occupational exposures: No Recent travel: No Sick contacts: Mom was sick with URI ROS: Fever: Sometimes feel hot Fatigue: No Unintentional weight loss: No Nasal congestion: No PND: Yes Sore throat: No Wheezing: Rattling SOB: No Chest pain: Front chest pain and lower back with cough Lower extremity edema No ROS: See HPI Objective: Examination: Vitals: BP 116/86 Pulse 92 Temp 37.1 ??C (98.7 ??F) (Oral) Resp 20 SpO2 96% Physical Exam Constitutional: She appears well-developed and well-nourished. No distress. HENT: Head: Normocephalic and atraumatic. Right Ear: Tympanic membrane and ear canal normal. Left Ear: Tympanic membrane and ear canal normal. Mouth/Throat: Uvula is midline, oropharynx is clear and moist and mucous membranes are normal. Eyes: Conjunctivae are normal. Neck: Neck supple. Cardiovascular: Normal rate, regular rhythm and normal heart sounds. Pulmonary/Chest: Effort normal and breath sounds normal. Lymphadenopathy: She has no cervical adenopathy. Skin: Skin is warm and dry. Capillary refill takes less than 2 seconds. Assessment & Plan: 1. Viral URI with cough guaifenesin-codeine (GUAIFENESIN AC) 100-10 mg/5 mL liquid fluticasone propionate (FLONASE) 50 mcg/actuation nasal spray benzonatate (TESSALON) 100 mg capsule 38 yo female with 10 days cough. Patient appears generally well, exam reassuring. Given report of PND, will try to treat this. Recommended daily saline sinus rinses in addition to flonase. Will try to bring relief from cough with cheratussin at night and benzonatate during the day. Lots of fluid, rest, humidifier, lozenges. F/u PRN. New Prescriptions BENZONATATE (TESSALON) 100 MG CAPSULE Take 1 Cap by mouth 3 times daily as needed for up to 7 days for Cough. FLUTICASONE PROPIONATE (FLONASE) 50 MCG/ACTUATION NASAL SPRAY Instill 1 [place] into both nostrils daily for 14 days. GUAIFENESIN-CODEINE (GUAIFENESIN AC) 100-10 MG/5 ML LIQUID Take 5 mL by mouth every 4 hours as needed for up to 7 days for Cough. Daily Max: 30 mL There are no Patient Instructions on file for this visit. documented in this encounter Plan of Treatment Not on file documented as of this encounter Visit Diagnoses Diagnosis Viral URI with cough- Primary Acute upper respiratory infections of unspecified site documented in this encounter Discontinued Medications Medication Sig Discontinue Reason Start Date End Da te guaifenesin/dextromethorp harmon (ROBITUSSIN DM MAX ORAL) Take 20 mL by mouth every 4 hours as needed. Alternate therapy 07/11/2019 documented as of this encounter Historical Medications * This list may reflect changes made after this encounter. guaifenesin/dextr omethorphan (ROBITUSSIN DM MAX ORAL) Take 20 mL by mouth every 4 hours as needed. 07/11/2019 FLUCELVAX QUAD 60 mcg (15 mcg x 4)/0.5 mL suspension INJECT ONCE 04/20/2019 08/18/2022 added in this encounter Care Teams Soup Person Relationship Specialty Start Date End Date Agustin Aguila MD [address] [place] [address] PCP - General 08/13/11 documented as of this encounter
--- OUTSIDE RECORDS SUMMARY | 2024-07-12 12:36 | XMS_ITS | Encounter Summary ---
Author Organization [facility] Address [address] [place] [address] Care Team Providers Care Log Check Scaler Name Role Phone Unknown, Provider Primary Care Provider Agustin Godwin MD Primary Care Provider [phone] Encounter Details Date Type Department Care Team (Late st Contact Info) Description 12/06/2009 Historical Results Only [facility] - Main [address] [id number] [place] [address] [place] [address] [place] [address] Social History Tobacco Use Types Packs/Day Years [...] Date/Time Associated Diagnosis Comments PAP TEST Routine 12/06/2009 documented in this encounter Results * PAP TEST (12/06/2009) 12/06/2009 12/09/2009 10: [address] [facility] - 12/11/2009 12:08 EDT ----- ------- Name: ESTEBAN CONNER ?: 80 ?Age/Sex: 38/F ?Unit#: [id number] ? Loc: AGO ? Status: REG POV ?? Reg Date: 12/06/09 ? Pt.Phone Number: ? ----- ------- Specimen: [id number] ?STATUS: SOUT ?Spec Date:12/06/09 ? Physician Copies: ?Micheal Bearden J Tissues: ? Cervical/Endo Pap ?Agustin Aguila ? CPT: 13330 ?? Units: ??1 ----- ------- ? CYTOLOGY DIAGNOSIS SPECIMEN ADEQUACY: ?Satisfactory for evaluation. Transformation zone component present. GENERAL CATEGORIZATION: ?Negative for Intraepithelial Lesion or Malignancy DESCRIPTIVE DIAGNOSIS: ? Negative for Intraepithelial Lesion or Malignancy. RECOMMENDATIONS/COMMENTS: ?None. ----- ------- ORDER QUERIES: LMP: 11/20/09- 7 DAYS ? N Post ? N ??PREVIOUS ATYPICAL: N BCP/HRT? Y Rad Rx? N IUD? N ??PAP PLUS HPV? N ??REFLEX TO HR-HPV IF ASCUS ?? REFLEX TO HPV 16/18 IF HPV POS/PAP NEG ?? HPV REGARDLESS?RFLX HPV IF LSIL ?? IF ASCUS DO HPV? N Signed Maite Tamayo CT(ASCP) 12/11/09 ? By the signature above, the attending physician certifies that he/she has personally conducted a gross and/or microscopic examination of the described specimens and rendered or confirmed the above diagnosis. Test Performed by [facility], [address] [id number] Toe Pounder: Jovita Hernandez MD PHD ----- ------- us Micheal Bearden MD PATHOLOGY ORDERABLES Final Result [facility] documented in this encounter Visit Diagnoses Not on filedocumented in this encounter Care Teams Log Check Scaler Relationship Specialty Start Date End Date Unknown, Provider, PCP - General 07/07/11 08/12/11 Agustin Aguila MD [address] [place] [id number] PCP - General 08/13/11 documented as of this encounter
--- OUTSIDE RECORDS SUMMARY | 2024-07-12 12:36 | XMS_ITS | Encounter Summary ---
Author Organization [facility] Address [address] [place] [address] Care Team Providers Care Distillery Laborer Name Role Phone Agustin Aguila MD Primary Care Provider [phone] Reason for Visit * Auth/Cert (Routine) Specialty Diagnoses / Procedures Referred By Deirdre harris Referred To Contact Diagnoses Maxillary hypoplasia Mandibular hyperplasia Procedures SD RECONST FACE,LEFORT I,1 PIECE SD RECONST MANDIBLE,SAG SPLIT+FIXATN Lefort 1 osteotomy with maxillary advancement and rigid fixation Bilatertal sagittal split osteotomy with mandibular advancement aqnd rigid fixation Referral ID Status Reason Start Date Expiration Date Visits Re quested Visits Authorized [id number] 1 1 Encounter Details Date Type Department Care Team (Late st Contact Info) Description 08/17/2022 12:40 EST Anesthesia Event [facility] OR [address] [place], [place] [phone] Pastor Kim MBBC [address] [place], [place] [phone] Eliezer Morales MD [address] [facility] Level 2 [place] [phone] Anesthesia Record Procedure Summary Procedure Name Responsible Anesthesiologist Anesthesia Start Time Anesthesia Stop Time Lefort 1 osteotomy with maxillary advancement and rigid fixation (Bilateral: Mouth) Pastor Kim [facility] 08/17/22 1240 08/17/22 1626 Events Date Time Event Comment 08/17/2022 1240 An Start The patient was re-evaluated immediately before moderate or deep sedation use, before anesthesia induction, or before the anesthesia procedure. 1240 An Start Data 1249 An Induction The patient was reevaluated immediately before moderate or deep sedation use and before anesthesia induction. 1252 An Intubation 1258 Anesthesia Ready 1311 an lorraine now Surgeon's infil tated local anaesthetic (10 mL 2pc lidocaine with epinephrine) 1312 Throat Pack In 1330 Dom MAP goals ~55 b y mid case 1412 an lorraine now 1522 Dom Ax skin tmp ; r oom cooled earlier, warmer not turned on. 1533 an lorraine now 1533 Throat Pack Out 1600 Dom Epistaxis with jaw manipulation ; surgeons back in O, pressure held. Labetalol to control pressure. Ketorolac once extubated 1605 An Extubation Antagonised ; Vt gt 500 mL consistently, eyes open and following commandds ; residual volatile. Extubated after suctioning, ETT suctioned on extraction ; maintained Vt gt 500 mL consistently >PACU oxygen face mask. 1626 Handoff to RN I completed my handoff to the receiving nurse during which we: 1. Identified the patient 2. Identified the responsible provider 3. Reviewed the pertinent medical history 4. Discussed the surgical course 5. Reviewed intra-op anesthesia management and issues during anesthesia 6. Set expectations for post-procedure period 7. Allowed opportunity for questions and acknowledgement of understanding. 1626 An Stop 1626 an stop data Meds Name Total dexaMETHasone (DECADRON) injection 4 mg/ mL (for IV doses up to 10mg) 10 mg fentanyl citrate (PF) injection 300 mcg glycopyrrolate pre-filled syringe 0.6 mg HYDROmorphone vial 2 mg/mL 1.6 mg ketAMINE 5 mL prefilled syringe 30 mg midazolam (versed) 1 mg/mL 2 mL vial 2 m g neostigmine (BLOXIVERZ) injection 1 mg/m L 3 mL syringe 2 mg ondansetron (PF) (ZOFRAN) injection 4 mg lidocaine 2% (PF) injection glass vial 8 0 mg phenylephrine pre-filled syringe 50 mcg propOFol (DIPRIVAN) injection 200 mg rocuronium 10 mg/mL vial 55 mg ceFAZolin (ANCEF) syringe 2 g 2 g nitroGLYcerin bottle 400 mcg/ml 620 mcg labetalol 20 mg/4 mL pre-filled syringe 15 mg ketOROLAC injection 30 mg lactated ringers (LR) infusion 1,000 mL * Agents Name Insp Sevoflurane Exp Sevoflurane O2 N2O Air * Blood No blood administrations on file. Lines, Drains, and Airways Type Details Placement Removal Peripheral IV 08/17/22; 1145; 20; 1.25; B Hernandez Introcan; Left, Posterior; Forearm; Inserted by RN; 1; None; 2% Chlorhexidine with IPA 08/17/22 1145 by Claudia Ellis RN Wound 08/17/22; 1342; Inne r; Mouth 08/17/22 1342 by Lina Love RN Non-Surgical Airway 08/17/22; 1338 (crea kate via procedure documentation); 08/17/22; 1605 08/17/22 1338 by Eliezer Morales MD 08/17/[address] [facility] documented in this encounter Social History Tobacco [...] on file documented as of this encounter OR Notes * Anesthesia Postprocedure Evaluation - Pastor Kim MB [facility] - 08/17/2022 1628 EST Patient: April Lewis Vital signs were reviewed with the recovery nurse. Complete vitals history is available in the Epicflowsheets. Vitals Value Taken Time BP 140/87 08/17/22 1615 Temp 08/17/22 1628 Resp 9 08/17/22 1628 Pulse From Oximetry 94 BPM 08/17/22 1628 SpO2 100 % 08/17/22 1628 Heart Rate 94 BPM 08/17/22 1628 Vitals shown include unvalidated device data. Last Pain Score - Numeric Pain Level (Scale 1-10): 0 Type of Anesthesia - general Anesthesia Post Evaluation Post-procedure vitals reviewed and are stable. Level of consciousness: awake (follows commands, directable) Temperature status: normothermia Respiratory status: airway patent and blow-by Cardiovascular status: acceptable Hydration status: adequate Nausea/Vomiting: none Pain management: adequate Post-Op Assessment: patient tolerated procedure well with no complications Patient participation: able to participate Disposition: inpatient Anesthesia Complications: No apparent anesthesia complications * Anesthesia Procedure Notes - Eliezer Morales MD - 08/17/2022 1337 ESTAssociated Order(s): Airway Airway Date/Time: 08/17/2022 12:52 Urgency: elective Airway not difficult General Information and Staff Patient location during procedure: OR Anesthesiologist: Pastor Kim MB [facility] Resident/MULTIMEDIA PRODUCTION ASSISTANT: Eliezer Morales MD Performed: resident/MULTIMEDIA PRODUCTION ASSISTANT/AA Indications and Patient Condition Indications for airway management: anesthesia Sedation level: GA Preoxygenated: yes Patient position: sniffing Ventilation assessment: 1 - Easy Final Airway Details Final airway type: endotracheal airway Successful airway: ETT and ANASTASIA tube Cuffed: yes Successful intubation technique: flexible bronchoscopy Facilitating devices/methods: intubating stylet Endotracheal tube insertion site: right naris ETT size (mm): 7.5 Placement verified by: chest auscultation, bronchoscopy, capnometry and palpation of cuff Number of attempts at approach: 1 * Anesthesia Preprocedure Evaluation - Eliezer Morales MD - 08/16/2022 1455 EST Anesthesia Preprocedure Evaluation Patient Medical History, including Anesthesia History reviewed. Chart and Nursing Notes reviewed, including NPO status and Medication History. Additional ROS/History Findings: 42 F undergoing lefort osteotomy w/ maxillary advancement and rigid fixation w/ Alon. PMH notable for maxillary hypoplasia, mandibular hyperplasia, TMJ, depression, anxiety, chronic headaches. No echo, ECG, prior anesthetic record on file. States prior anesthesia with no issues. No Known Allergies Review of Systems Constitutional: Negative. Respiratory: Negative. Cardiovascular: Negative. Gastrointestinal: Negative. Musculoskeletal: Negative for neck pain. Endo/Heme/Allergies: Negative. Past Medical History: Diagnosis Date ??? Activity, other involving cardiorespiratory exercise Noted 08/12/22- Walking, 1-2 FOS without any ??? Anxiety Noted 08/12/22- Treated with Lexapro ??? Back pain Noted 08/12/22- Sciatic pain ??? Chronic headaches Noted 08/12/22 ??? Depression Noted 08/12/22 ??? TMJ syndrome Noted 08/12/22- Right side clicking Relevant Problems No relevant active problems Physical Exam Airway Mallampati: III TM distance: >3 FB Neck ROM: full Cardiovascular - normal exam Rhythm: regular Rate: normal Dental - normal exam Comments: Braces in place Pulmonary - normal exam Breath sounds clear to auscultation Abdominal Anesthesia Plan ASA 2 Anesthesia Type - general, to include intravenous induction. Anesthesia plan and risks discussed. Informed consent obtained from patient. Use of blood products discussed with patient who consented to blood products. Specific risks discussed were bleeding, dental injury, nausea, stroke, vomiting, nerve damage, infection, , ICU placement, myocardial infarction and post-op intubation. Code status discussed? No The preoperative history and physical which was performed within 30 days of this procedure, has been reviewed and the clinically appropriate elements of the physical examination have been repeated. There are no changes to the documented history and physical or, if so, such changes are documented inthis note PAT Note Notes from 07/17/22 through 08/16/22 No notes of this type exist for this encounter. documented in this encounter Plan of Treatment Not on file documented as of this encounter Procedures Procedure Name Priority Date/Time Associated Diagnosis Comments ANESTHESIA INTUBATION Routine 08/17/2022 12:52 EST documented in this encounter Results * SD AN ELECTIVE ENDOTRACHEAL AIRWAY (08/17/2022 12:52 EST) Narrative Eliezer Morales MD - 08/17/2022 12:52 EST Eliezer Morales MD ? 08/17/2022 13:38 Airway Date/Time: 08/17/2022 12:52 Urgency: elective Airway not difficult General Information and Staff Patient location during procedure: OR Anesthesiologist: Pastor Kim MB [facility] Resident/MULTIMEDIA PRODUCTION ASSISTANT: Eliezer Morales MD Performed: resident/MULTIMEDIA PRODUCTION ASSISTANT/AA Indications and Patient Condition Indications for airway management: anesthesia Sedation level: GA Preoxygenated: yes Patient position: sniffing Ventilation assessment: 1 - Easy Final Airway Details Final airway type: endotracheal airway Successful airway: ETT and ANASTASIA tube Cuffed: yes Successful intubation technique: flexible bronchoscopy Facilitating devices/methods: intubating stylet Endotracheal tube insertion site: right naris ETT size (mm): 7.5 Placement verified by: chest auscultation, bronchoscopy, capnometry and palpation of cuff Number of attempts at approach: [address] [facility] ANESTHESIA ORDERABLES Nadia peterson Result documented in this encounter Visit Diagnoses Not on filedocumented in this encounter Administered Medications Inactive Administered Medications - up to 3 most recent administrations Medication Order MAR Action Action Date Dose Rate Site ceFAZolin (ANCEF) syringe 2 g 2 g, intravenous, Administer over 5 Minutes, PRE-OP ONCE, 1 dose, On Wed08/17/22 at 1115, Pre-Op, Preprocedure Given 08/17/2022 12:58 EST 2 g dexAMETHasone (DECADRON) injection intravenous, PRN, Starting on Wed08/17/22 at 1258, Until Wed08/17/22 at 1628, Routine, Anesthesia Intraprocedure Given 08/17/2022 12:58 EST 10 mg fentaNYL citrate (PF) injection intravenous, PRN, Starting on Wed08/17/22 at 1249, Until Wed08/17/22 at 1628, Routine, Anesthesia Intraprocedure Given 08/17/2022 14:28 EST 100 mcg Given 08/17/2022 13:12 EST 75 mcg Given 08/17/2022 13:07 EST 25 mcg glycopyrrolate (PF) (ROBINUL) 0.4 mg/2 mL (0.2 mg/mL) injection intravenous, PRN, Starting on Wed08/17/22 at 1242, Until Wed08/17/22 at 1628, Routine, Anesthesia Intraprocedure Given 08/17/2022 15:33 EST 0.4 mg Given 08/17/2022 12:42 EST 0.2 mg HYDROmorphone (DILAUDUD) 2 mg/mL injection intravenous, PRN, Starting on Wed08/17/22 at 1328, Until Wed08/17/22 at 1628, Routine, Anesthesia Intraprocedure Given 08/17/2022 14:22 EST 0.4 mg Given 08/17/2022 14:10 EST 0.6 mg Given 08/17/2022 13:28 EST 0.6 mg ketAMINE in NaCl, iso-osmotic (KETALAR) 50 mg/5 mL (10 mg/mL) IV injection intravenous, PRN, Starting on Wed08/17/22 at 1258, Until Wed08/17/22 at 1628, Routine, Anesthesia Intraprocedure Given 08/17/2022 12:58 EST 30 mg ketOROLAC (TORADOL) injection intravenous, PRN, Starting on Wed08/17/22 at 1608, Until Wed08/17/22 at 1628, Routine, Anesthesia Intraprocedure Given 08/17/2022 16:08 EST 30 mg labetaloL (TRANDATE) injection intravenous, PRN, Starting on Wed08/17/22 at 1548, Until Wed08/17/22 at 1628, Routine, Anesthesia Intraprocedure Given 08/17/2022 16:08 EST 5 mg Given 08/17/2022 15:48 EST 10 mg lactated ringers (LR) infusion at 25 mL/hr, intravenous, CONTINUOUS, Starting on Wed08/17/22 at 1115, Until Wed08/18/22 at 1816, Routine, Preprocedure New Bag 08/17/2022 16:08 EST Restarted 08/17/2022 12:41 EST Continued by Anesthesia 08/17/2022 12:40 EST 25 mL/hr lidocaine (PF) 20 mg/mL (2 %) injection intravenous, PRN, Starting on Wed08/17/22 at 1249, Until Wed08/17/22 at 1628, Routine, Anesthesia Intraprocedure Given 08/17/2022 12:49 EST 80 mg midazolam (PF) (VERSED) injection intravenous, PRN, Starting on Wed08/17/22 at 1249, Until Wed08/17/22 at 1628, Routine, Anesthesia Intraprocedure Given 08/17/2022 12:49 EST 2 mg neostigmine methylsulfate (BLOXIVERZ) injection intravenous, PRN, Starting on Wed08/17/22 at 1534, Until Wed08/17/22 at 1628, Routine, Anesthesia Intraprocedure Given 08/17/2022 15:35 EST 2 mg nitroglycerin 400 mcg/ml in D5W 250 ml infusion intravenous, FA IP EQF CONTINUOUS PRN FOR ONE STEP MEDS, Starting on Wed08/17/22 at 1410, Until Wed08/17/22 at 1628, Routine, Anesthesia Intraprocedure Rate Change 08/17/2022 15:01 EST 5 mcg/min 0.75 mL/hr Rate Change 08/17/2022 14:55 EST 10 mcg/min 1.5 mL/hr Rate Change 08/17/2022 14:37 EST 15 mcg/min 2.25 mL/hr ondansetron (PF) (ZOFRAN) injection intravenous, PRN, Starting on Wed08/17/22 at 1534, Until Wed08/17/22 at 1628, Routine, Anesthesia Intraprocedure Given 08/17/2022 15:34 EST 4 mg phenylephrine HCl in 0.9% NaCl injection intravenous, PRN, Starting on Wed08/17/22 at 1249, Until Wed08/17/22 at 1628, Routine, Anesthesia Intraprocedure Given 08/17/2022 12:49 EST 50 mcg propOFol (DIPRIVAN) injection intravenous, PRN, Starting on Wed08/17/22 at 1249, Until Wed08/17/22 at 1628, Routine, Anesthesia Intraprocedure Given 08/17/2022 12:51 EST 100 mg Given 08/17/2022 12:49 EST 100 mg rocuronium (ZEMURON) injection intravenous, PRN, Starting on Wed08/17/22 at 1250, Until Wed08/17/22 at 1628, Routine, Anesthesia Intraprocedure Given 08/17/2022 14:23 EST 5 mg Given 08/17/2022 12:50 EST 50 mg documented in this encounter Care Teams Distillery Laborer Relationship Specialty Start Date End Date Agustin Aguila MD [address] [place] [address] PCP - General 08/13/11 documented as of this encounter
--- OUTSIDE RECORDS SUMMARY | 2024-07-12 12:36 | XMS_ITS | Encounter Summary ---
Author Organization [facility] Address [address] [place] [address] Care Team Providers Care Size Painter Name Role Phone Agustin Aguila MD Primary Care Provider [phone] Encounter Details Date Type Department Care Team (Late st Contact Info) Description 04/29/2015 Historical Results Only [facility] Radiology Results [address] [place] [address] Mary Phan, AIRCRAFT ORDNANCE SYSTEMS MECHANIC [address] [facility] [place] [address], [address] [place] [address] Social History Tobacco Use Types [...] Procedure Name Priority Date/Time Associated Diagnosis Comments US PELVIS TRANSVAGINAL COMPLETE 04/29/2015 18:22 EST documented in this encounter Results * US PELVIS TRANSVAGINAL (04/29/2015 18:22 EST) Anatomical Region Laterality Modality Pelvis Other 04/29/2015 18:2 2 EST Narrative 04/29/2015 18:28 EST ? EXAM: ULTRASOUND/TRANSVAGINAL - HUMAN RESOURCES DESIGNATE W/ DO EX. D/ (7065) ? CLINICAL INFORMATION: ? ADNEXAL PAIN ? R10.2 ? TRANSVAGINAL - HUMAN RESOURCES DESIGNATE W/ DOPPLER ? Signs and Symptoms/Comments: Adnexal pain ? Comparison: 04/05/2013 ? Technique: Transvaginal grayscale ultrasound images of the female ? pelvis were obtained. Color flow Doppler imaging was obtained. ? Spectral tracings were also obtained. ? Findings: ? The uterus is anteverted. It measures 7.6 x 3.4 x 4.6 cm. Its ? myometrium is homogenous in echotexture. ? The uterine endometrium is normal appearing for a proliferative phase ? endometrium. ??It measures 5 mm in double thickness. ? The right ovary measures 2.4 x 2.2 x 1.7 cm. It demonstrates normal ? color Doppler flow and normal arterial and venous flow on spectral ? tracing. There is peripheralization follicles. ? The left ovary measures 3.0 x 2.0 x 1.7 cm. ?? It demonstrates normal ? color Doppler flow and normal arterial and venous flow on spectral ? tracing. There is peripheralization of follicles. ? The cervix is unremarkable. ? No free fluid is seen in the cul-de-sac. ? Impression: ? 1. ??Normal appearance of the uterus and uterine endometrium. ? 2. ??Peripheralization of follicles. The ovaries are normal in size. ? This is likely a normal variant. ? REPORT SIGNED IN OTHER VENDOR SYSTEM 04/29/2015 ?Reported By: Chris Smith MD ? CC: ? Transcribed Date/Time: 04/29/2015 (1827) ? Glaze Handler: ? Printed Date/Time: 12/07/2018 (9197) ? PAGE 1 ? Signed Report ? Procedure Note Chris Smith MD - 05/03/2019 EXAM: ULTRASOUND/TRANSVAGINAL - HUMAN RESOURCES DESIGNATE W/ DO EX. D/ (1328) CLINICAL INFORMATION: ADNEXAL PAIN R10.2 TRANSVAGINAL - HUMAN RESOURCES DESIGNATE W/ DOPPLER Signs and Symptoms/Comments: Adnexal pain Comparison: 04/05/2013 Technique: Transvaginal grayscale ultrasound images of the female pelvis were obtained. Color flow Doppler imaging was obtained. Spectral tracings were also obtained. Findings: The uterus is anteverted. It measures 7.6 x 3.4 x 4.6 cm. Its myometrium is homogenous in echotexture. The uterine endometrium is normal appearing for a proliferativephase endometrium. It measures 5 mm in double thickness. The right ovary measures 2.4 x 2.2 x 1.7 cm. It demonstrates normal color Doppler flow and normal arterial and venous flow on spectral tracing. There is peripheralization follicles. The left ovary measures 3.0 x 2.0 x 1.7 cm. It demonstratesnormal color Doppler flow and normal arterial and venous flow on spectral tracing. There is peripheralization of follicles. The cervix is unremarkable. No free fluid is seen in the cul-de-sac. Impression: 1. Normal appearance of the uterus and uterine endometrium. 2. Peripheralization of follicles. The ovaries are normal in size. This is likely a normal variant. REPORT SIGNED IN OTHER VENDOR SYSTEM 04/29/2015 Reported By: Chris Smith MD CC: Transcribed Date/Time: 04/29/2015 (182) Glaze Handler: Printed Date/Time: 12/07/2018 (2599) PAGE 1 Signed Report us Mary Phan AIRCRAFT ORDNANCE SYSTEMS MECHANIC IMG US OB ORDERABLES Final Re sult documented in this encounter Visit Diagnoses Not on filedocumented in this encounter Care Teams Size Painter Relationship Specialty Start Date End Date Agustin Aguila MD [address] [place] [address] PCP - General 08/13/11 documented as of this encounter
--- OUTSIDE RECORDS SUMMARY | 2024-07-12 12:36 | XMS_ITS | Encounter Summary ---
Author Organization [facility] Address [address] [place] [address] Care Team Providers Care Stationary Boiler Fireman Name Role Phone Agustin Aguila MD Primary Care Provider [phone] Encounter Details Date Type Department Care Team (Late st Contact Info) Description 05/09/[address] [facility] [place] [address] [phone] Carroll Trinidad MD [address] [place] [id number] Social History Tobacco Use Types Packs/Day Years [...] Date/Time Associated Diagnosis Comments SURGICAL PATHOLOGY Routine 05/09/2015 documented in this encounter Results * SURGICAL PATHOLOGY (05/09/2015) 05/09/2015 05/09/2015 13: [address] [facility] - 05/10/2015 10:13 EST ----- ------- Name: ESTEBAN CONNER ?: 80 ?Age/Sex: 38/F ?Unit#: [id number] ? Loc: SDS ? Status: DEP SDC ?? Reg Date: 05/09/15 ? Pt.Phone Number: ? ----- ------- Specimen: [id number] ? STATUS: SOUT ?Spec Date:05/09/15 ? Physician Copies: ?Carroll Trinidad MD ? Tissues: A ?? Muscle biopsy (RECTUS #1) ?Agustin Aguila ? B ?? Muscle biopsy (RECTUS #2) ? C ?? Muscle biopsy (RECTUS #3) ? CPT: 38552 ?? Units: ??3 ?FINAL DIAGNOSIS ? A. Muscle, rectus, #1, excisional biopsy; ? - Benign skeletal muscle and adipose tissue. ? B. Muscle, rectus, #2, excisional biospy; ? - Endometriosis. ? C. Muscle, rectus, #3, excisional biopsy; ? - Endometriosis. ? GROSS DESCRIPTION ? A. Received on a dry sponge labeled with the patient's name and rectus muscle ? mass are red-milton soft tissue fragments 1.7 x 1.8 x 0.3 cm in diameter. ??A ? portion of this is resembling yellow-milton adipose tissue approximately 1.5 cm in ? greatest dimension. ??A majority of the reddish material is submitted for frozen ? section block A. ??The remainder of the tissue is submitted for permanent ? sections, block A2. ??e.s. 2. ? Frozen section diagnosis: Hemorrhagic area; no glands identified; possible ? endometrial stroma. ??Defer to permanent sections. ??Reported to Dr. Trinidad at ? 1410 on 05/09/15. ? B. Received fresh labeled with the patient's name and rectus muscle mass is ? an aggregate of red-milton soft tissue fragments, 1.7 x 1.4 x 0.8 cm in the ? aggregate. ??Sectioning reveals a red-milton hematoma resembling area approximately ? 0.5 cm in greatest dimension. ??A section of this area is submitted for frozen ? section and the remainder is submitted for permanent section as block B2. ??e.s. ? 2. ? Frozen section diagnosis: Hemorrhagic area; no glands identified; possible ? endometrial stroma. ??Defer to permanent sections. ??Reported to Dr. Trinidad at ? 1410 on 05/09/15. ? C. Received in formalin labeled with the patient's name and rectus muscle are ----- ------- Patient: DENISEWHITAnandaESTEBAN ?#[id number] ? (Continued) ----- ------- Specimen: [id number] ? Received: 05/09/15 ?(Continued) ? GROSS DESCRIPTION ?(Continued) ? two red-milton soft tissue fragments. ??The smaller is 1.5 x 1.5 x 0.9 cm. ? Sectioning this reveals the central portion shows yellow-milton pallor over an ? area approximately 0.7 cm in diameter. ??Totally submitted as C1. ??The larger ? fragment is 2.0 x 1.8 x 0.6 cm. ??Sectioning this reveals a stellate shaped 0.9 ? x 0.5 cm area of hemorrhagic material on cross section. ??e.s. 2. ??RM ?? PREOP DX/CLINICAL HISTORY ?Left lower quadrant pain, abdominal wall mass. Signed ____(signature on file)____ Zach Betancur M.D. 05/10/15 By the signature above, the attending physician certifies that he/she has personally conducted a gross and/or microscopic examination of the described specimens and rendered or confirmed the above diagnosis. Test Performed by [facility], [address] [place] [address] Purchase Price Analyst: Jovita Hernandez MD PHD ----- ------- us Carroll Trinidad MD PATHOLOGY ORDERABLES Final Resul t [facility] documented in this encounter Visit Diagnoses Not on filedocumented in this encounter Care Teams Stationary Boiler Fireman Relationship Specialty Start Date End Date Agustin Aguila MD [address] [place] [address] PCP - General 08/13/11 documented as of this encounter
--- OUTSIDE RECORDS SUMMARY | 2024-07-12 12:36 | XMS_ITS | Encounter Summary ---
Author Organization [facility] Address [address] [place] [address] Care Team Providers Care Net Wpf Developer Name Role Phone Agustin Aguila MD Primary Care Provider [phone] Encounter Details Date Type Department Care Team (Latest Contact Info) Description 04/29/2015 16:37 EST - 04/29/2015 23:59 EST Hospital Encounter [address] [address] Unknown, Provider, Discharge Disposition: Home or Self [...] Code Departure Means Destination Home or Self Custodial documented in this encounter Plan of Treatment Not on file documented as of this encounter Visit Diagnoses Not on filedocumented in this encounter Care Teams Net Wpf Developer Relationship Specialty Start Date End Date Agustin Aguila MD [address] [place] [address] PCP - General 08/13/11 documented as of this encounter
[2024-07-12 12:52] LABS: ALT 20 U/L (14-59); AST 13 U/L (15-37); Albumin 3.9 g/dL (3.4-5.0); Alkaline Phosphatase 52 U/L (46-116); Anion Gap 8.6 mmol/L (3-11); BUN 12 mg/dL (7-18); Bilirubin, Total 0.44 mg/dL (0.2-1.0); CO2 26.4 mmol/L (21.0-32.0); Calcium 9.1 mg/dL (8.5-10.1); Calculated LDL 111 mg/dL (<100); Chloride 106 mmol/L (98-107); Cholesterol 175 mg/dL (<200); Estimated GFR 71.69 (mL/min/1.73m2); Glucose 93 mg/dL (74-106); HDL Cholesterol 55 mg/dL (40-60); Potassium 3.9 mmol/L (3.5-5.1); Sodium 141 mmol/L (136-145); Total Protein 7.8 g/dL (6.4-8.2); Triglyceride 46 mg/dL (<150)
[2024-07-12] MEDS: Barium Sulfate 2% W/V-Berry Smoothie 450 ML BTL PO ×2 (14:28→14:33)
[2024-07-12] MEDS: Normal Saline - Diluent 50 ML VIAL IJ (14:35)
[2024-07-12] MEDS: Omnipaque 350 MG/ML 500 ML BTL-Imaging package 75 ML IJ (14:37)
== END 2024-07-12 12:54 ==
LOC: DI 12:34
PROVIDERS: PCP Nurse Practitioner Family; Visit Provider Nurse Practitioner Family
DX: R19.09 Other intra-abdominal and pelvic swelling, mass and lump (principal)
CPT/HCPCS: 80053; 80061; 74177; 85025

== ENCOUNTER 2024-07-13 13:59 | Outpatient (CLI) | payer BC, SELFPAY ==
--- OUTSIDE RECORDS SUMMARY | 2024-07-13 14:01 | XMS_ITS | Encounter Summary ---
Author Organization [facility] Address [address] [place] [address] Care Team Providers Care Graphic Design Specialist Name Role Phone Agustin Aguila MD Primary Care Provider [phone] Reason for Visit * Reason Comments Cough Encounter Details Date Type Department Care Team (Late st Contact Info) Description 07/11/2019 13:30 EST Walk-In [facility] [address] [phone] Sophia Guevara NP [address] [facility] [address] [place] [address] Viral URI with cough (Primary Dx) [...] sprayIndications:V iral URI with cough Instill 1 [place] into both nostrils daily for 14 days. 1 Bottle 07/11/2019 0 guaifenesin-codein e (GUAIFENESIN AC) 100-10 mg/5 mL liquidIndications: Viral URI with cough Take 5 mL by mouth every 4 hours as needed for up to 7 days for Cough. Daily Max: 30 mL 120 mL 07/11/2019 0 documented in this encounter Progress Notes * Sophia Guevara, ROYCE - 07/11/2019 1330 EST [facility] Care Chief Complaint(s): Chief Complaint Patient [...] (FLONASE) 50 MCG/ACTUATION NASAL SPRAY Instill 1 [place] into both nostrils daily for 14 days. [...] 08/18/2022 added in this encounter Care Teams Graphic Design Specialist Relationship Specialty Start Date End Date Agustin Aguila MD [address] [place] [address] PCP - General 08/13/11 documented as of this encounter
--- OUTSIDE RECORDS SUMMARY | 2024-07-13 14:01 | XMS_ITS | Encounter Summary ---
Author Organization [facility] Address [address] [place] [address] Care Team Providers Care Enterprise Systems Engineer Name Role Phone Annie Rivera MD Primary Care Provide Agustin Sanabria MD Primary Care Provider [phone] Encounter Details Date Type Department Care Team (Late st Contact Info) Description 12/06/2009 Historical Results Only [facility] - Main [address] [address] [place] [address] [place] [address] [place] [address] Social History Tobacco Use Types Packs/Day Years [...] (12/06/2009) 12/06/2009 12/09/2009 10: 54 EDT Narrative [facility] - 12/11/2009 12:08 EDT ----- ------- Name: ESTEBAN CONNER ?: 80 ?Age/Sex: 38/F ?Unit#: [id number] ? Loc: AGO ? Status: REG POV ?? Reg Date: 12/06/09 ? Pt.Phone Number: ? ----- ------- Specimen: [id number] ?STATUS: SOUT ?Spec Date:12/06/09 ? Physician Copies: ?Micheal Bearden J Tissues: ? Cervical/Endo Pap ?Agustin Aguila ? CPT: 51546 ?? Units: ??1 ----- ------- ? CYTOLOGY [...] confirmed the above diagnosis. Test Performed by [facility], [address] [facility] [address] [place] Can Worker: Jovita Hernandez MD PHD ----- ------- us Micheal Bearden MD PATHOLOGY ORDERABLES Final Result [facility] documented in this encounter Visit Diagnoses Not on filedocumented in this encounter Care Teams Enterprise Systems Engineer Relationship Specialty Start Date End Date Annie Rivera MD PCP - General 07/07/1107/29 Agustin Aguila MD [address] [place] [address] PCP - General 08/13/11 documented as of this encounter
--- OUTSIDE RECORDS SUMMARY | 2024-07-13 14:01 | XMS_ITS | Encounter Summary ---
Author Organization [facility] Address [address] [place] [address] Care Team Providers Care Cognos Bi Administrator Name Role Phone Annie Rivera MD Primary Care Provide Agustin Sanabria MD Primary Care Provider [phone] Encounter Details Date Type Department Care Team (Late st Contact Info) Description 03/11/2011 Historical Results Only [facility] - Main [place] [address] [place], [place] [phone] Odalis Jacobson MD [address] [place] [address],[facility] [address] [place] [address] Social History Tobacco Use Types Packs/Day Years [...] 16:4 7 EDT 03/12/2011 10:24 EDT Narrative [facility] - 03/16/2011 15:38 EDT ----- ------- Name: DENISEWHITESTEBAN Malave ?: 80 ?Age/Sex: 38/F ?Unit#: [id number] ? Loc: AGO ? Status: REG POV ?? Reg Date: 03/11/11 ? Pt.Phone Number: ? ----- ------- Specimen: [id number] ?STATUS: SOUT ?Spec Date:03/11/11 ? Physician Copies: ?Odalis Jacobson ? Tissues: ? Cervical/Endo Pap ?Agustin Aguila ? CPT: 43428 ?? Units: ??1 ----- ------- ? CYTOLOGY [...] DNA test. ----- ------- ORDER QUERIES: LMP: 8/23/11 - 02/17/11 ? N Post ? N [...] confirmed the above diagnosis. Test Performed by [facility], [address] [place] [address] Budget Engineer: Jovita Hernandez MD PHD ----- ------- us Odalis Jacobson MD PATHOLOGY ORDERABLES Final Res ult [facility] documented in this encounter Visit Diagnoses Not on filedocumented in this encounter Care Teams Cognos Bi Administrator Relationship Specialty Start Date End Date Annie Rivera MD PCP - General 07/07/1107/29 Agustin Aguila MD [address] [place] [address] PCP - General 08/13/11 documented as of this encounter
--- OUTSIDE RECORDS SUMMARY | 2024-07-13 14:01 | XMS_ITS | Referral Summary ---
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 Overview (07/17/2022): Added automatically from request for surgery [id number] Social History Tobacco Use Types Packs/Day Years [...] on file Medical Devices Implanted Type Area Motorcycle Racer Device Identifier Shelf Expiration Date Model / Serial / Lot Plate Bone Cmf Mandib Crv Lck Gld 6h 6mm Leibingkaur [id number] - [id number] Implanted:Qty: 1 on 08/17/2022 by Martínez Chi DDS at [facility] Plate Implant Right: Mandible JUAN ANTONIO LEIBINGER [id number] / / Plate Bone Cmf Mandib Crv Lck Gld 6h 6mm Josebingkaur [id number] - [id number] Implanted:Qty: 1 on 08/17/2022 by Martínez Chi DDS at [facility] Plate Implant Left: Mandible JUAN ANTONIO LEIBINGER [id number] / / Plate Bone 3mm Right 10 Hole Advancement - [id number] Implanted:Qty: 1 on 08/17/2022 by Martínez Chi DDS at [facility] Plate Implant Right: Hard Palate JUAN ANTONIO LEIBINGER [id number] / / Plate Bone Cmf Mdface Lft Gld 5h 5mm Josebingkaur [id number] - [id number] Implanted:Qty: 1 on 08/17/2022 by Martínez Chi DDS at [facility] Plate Implant Right: Hard Palate JUAN ANTONIO LEIBINGER [id number] / / Plate Bone Cmf Mdface Rght Gld 5h 5mm Leibinger [id number] - [id number] Implanted:Qty: 1 on 08/17/2022 by Martínez Chi DDS at [facility] Plate Implant Right: Hard Palate JUAN ANTONIO LEIBINGER [id number] / / Plate Bone 5mm Left 10 Hole Advancement - [id number] Implanted:Qty: 1 on 08/17/2022 by Martínez Chi DDS at [facility] Plate Implant Left: Hard Palate JUAN ANTONIO LEIBINGER [id number] / / Screw Bone Cmf Mandib St Gld 2x5mm Leibinger [id number] - [id number] Implanted:Qty: 4 on 08/17/2022 by Martínez Chi DDS at [facility] Screw Implant Right: Mandible JUAN ANTONIO LEIBINGER [id number] / / Screw Bone Slf Tpng Fthrd 1.9x03mm Axs [id number] - [id number] Implanted:Qty: 1 on 08/17/2022 by Martínez Chi DDS at [facility] Screw Implant Right: Hard Palate JUAN ANTONIO LEIBINGER [id number] / / Screw Bone Cmf Mandib Sdr 1.7x4mm Axs [id number] - [id number] Implanted:Qty: 21 on 08/17/2022 by Martínez Chi DDS at [facility] Screw Implant Right: Hard Palate JUAN ANTONIO LEIBINGER [id number] / / Screw Bone Cmf Mdface Sdr 1.7x6mm Axsst [id number] - [id number] Implanted:Qty: 2 on 08/17/2022 by Martínez Chi DDS at [facility] Screw Implant Right: Hard Palate JUAN ANTONIO LEIBINGER [id number] / / Screw Bone Cmf Mandib St Gld 2x4mm Leibinger [id number] - [id number] Implanted:Qty: 3 on 08/17/2022 by Martínez Chi DDS at [facility] Screw Implant Left: Mandible JUAN ANTONIO LEIBINGER [id number] / / Screw Bone Cmf Mandib St Gld 2x5mm Leibinger [id number] - [id number] Implanted:Qty: 3 on 08/17/2022 by Martínez Chi DDS at [facility] Screw Implant Left: Mandible JUAN ANTONIO LEIBINGER [id number] / / Screw Bone Cmf Mandib St Gld 2x4mm Leibinger [id number] - [id number] Implanted:Qty: 2 on 08/17/2022 by Martínez Chi DDS at [facility] Screw Implant Right: Mandible JUAN ANTONIO LEIBINGER [id number] / / Insurance [facility] Address: [address] [address] Advance Directives For more information, please contact: [phone] * Full Code (Latest Code Status on [...] Who Made the Decision? Patient Care Teams Automobile Service Station Mechanic Relationship Specialty Start Date End Date Agustin Aguila MD [address] [place] [address] [facility] - General 08/13/11
--- OUTSIDE RECORDS SUMMARY | 2024-07-13 14:01 | XMS_ITS | Clinical Summary ---
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 Overview (07/17/2022): Added automatically from request for surgery [id number] Surgical History Surgery Date Site/Laterality Comments SECTION [...] season) 2024 Medical Devices Implanted Type Area Custom Van Converter Device Identifier Shelf Expiration Date Model / Serial / Lot Plate Bone Cmf Mandib Crv Lck Gld 6h 6mm Oriense [id number] - [id number] Implanted:Qty: 1 on 08/17/2022 by Martínez Cih DDS at [facility] Plate Implant Right: Mandible JUAN ANTONIO ELOISAEykona TechnologiesJOANNE [id number] / / Plate Bone Cmf Mandib Crv Lck Gld 6h 6mm Oriense [id number] - [id number] Implanted:Qty: 1 on 08/17/2022 by Martínez Chi DDS at [facility] Plate Implant Left: Mandible JUAN ANTONIO LEIBINGER [id number] / / Plate Bone 3mm Right 10 Hole Advancement - [id number] Implanted:Qty: 1 on 08/17/2022 by Martínez Chi DDS at [facility] Plate Implant Right: Hard Palate JUAN ANTONIO LEIBINGER [id number] / / Plate Bone Cmf Mdface Lft Gld 5h 5mm Leibinger [id number] - [id number] Implanted:Qty: 1 on 08/17/2022 by Martínez Chi DDS at [facility] Plate Implant Right: Hard Palate JUAN ANTONIO LEIBINGER [id number] / / Plate Bone Cmf Mdface Rght Gld 5h 5mm Leibinger [id number] - [id number] Implanted:Qty: 1 on 08/17/2022 by Martínez Chi DDS at [facility] Plate Implant Right: Hard Palate JUAN ANTONIO LEIBINGER [id number] / / Plate Bone 5mm Left 10 Hole Advancement - [id number] Implanted:Qty: 1 on 08/17/2022 by Martínez Chi DDS at [facility] Plate Implant Left: Hard Palate JUAN ANTONIO LEIBINGER [id number] / / Screw Bone Cmf Mandib St Gld 2x5mm Leibinger [id number] - [id number] Implanted:Qty: 4 on 08/17/2022 by Martínez Chi DDS at [facility] Screw Implant Right: Mandible JUAN ANTONIO LEIBINGER [id number] / / Screw Bone Slf Tpng Fthrd 1.9x03mm Axs [id number] - [id number] Implanted:Qty: 1 on 08/17/2022 by Martínez Chi DDS at [facility] Screw Implant Right: Hard Palate JUAN ANTONIO LEIBINGER [id number] / / Screw Bone Cmf Mandib Sdr 1.7x4mm Axs [id number] - [id number] Implanted:Qty: 21 on 08/17/2022 by Martínez Chi DDS at [facility] Screw Implant Right: Hard Palate JUAN ANTONIO LEIBINGER [id number] / / Screw Bone Cmf Mdface Sdr 1.7x6mm Axsst [id number] - [id number] Implanted:Qty: 2 on 08/17/2022 by Martínez Chi DDS at [facility] Screw Implant Right: Hard Palate JUAN ANTONIO LEIBINGER [id number] / / Screw Bone Cmf Mandib St Gld 2x4mm Leibinger [id number] - [id number] Implanted:Qty: 3 on 08/17/2022 by Martínez Chi DDS at [facility] Screw Implant Left: Mandible JUAN ANTONIO LEIBINGER [id number] / / Screw Bone Cmf Mandib St Gld 2x5mm Leibinger [id number] - [id number] Implanted:Qty: 3 on 08/17/2022 by Martínez Chi DDS at [facility] Screw Implant Left: Mandible JUAN ANTONIO LEIBINGER [id number] / / Screw Bone Cmf Mandib St Gld 2x4mm Leibinger [id number] - [id number] Implanted:Qty: 2 on 08/17/2022 by Martínez Chi DDS at [facility] Screw Implant Right: Mandible JUAN ANTONIO LEIBINGER [id number] / / [place] [address] [place] [address] Advance Directives For more information, please contact: [phone] * Full Code (Latest Code Status on [...] Who Made the Decision? Patient Care Teams Car Salesperson Relationship Specialty Start Date End Date Agustin Aguila MD [address] [place] [address] PCP - General 08/13/11
--- OUTSIDE RECORDS SUMMARY | 2024-07-13 14:01 | XMS_ITS | Encounter Summary ---
Author Organization [facility] Address [address] [place] [address] Care Team Providers Care Die Cast Operator Name Role Phone Agustin Aguila MD Primary Care Provider [phone] Encounter Details Date Type Department Care Team (Late st Contact Info) Description 08/14/2011 - 08/14/2011 23:59 EST Hospital Encounter [address] [address] Laith Gann MD [address] [facility] [address] [place] [id number] Social History Tobacco Use Types Packs/Day Years Used Date Smoking Tobacco: Never Assessed Comments Unknown Sex and Gender Information Value Date Recorded Sex Assigned at Not on file Legal Sex Female 18:54 EST Gender Identity Female 08/12/2022 8:50 EST Sexual Orientation Not on file documented as of this encounter Miscellaneous Notes * Scanned Note-Null - Machine Cementer And Folder, Scan - 08/17/2011 0850 EST documented in this encounter Plan of Treatment Not on file documented as of this encounter Visit Diagnoses Not on filedocumented in this encounter Care Teams Die Cast Operator Relationship Specialty Start Date End Date Agustin Aguila MD [address] [place] [address] PCP - General 2/16/12 documented as of this encounter
--- OUTSIDE RECORDS SUMMARY | 2024-07-13 14:01 | XMS_ITS | Encounter Summary ---
Author Organization Health system Address [address] [place] [address] Care Team Providers Care Lead Housekeeper Name Role Phone Annie Rivera MD Primary Care Provide r Unavailable Encounter Details Date Type Department Care Team (Late st Contact Info) Description 07/07/2011 Results Only Imaging [facility] [phone] Cady Sung, [facility] [address] [facility] [address] [place], [place] [phone] Social History Tobacco Use Types Packs/Day Years [...] Procedure Name Priority Date/Time Associated Diagnosis Comments CORRECTION ULTRASCREEN (INCLUDES SEQUENTIAL SCREEN) 08/14/2011 13:52 EST documented in this encounter Results * CORRECTION ULTRASCREEN (08/14/2011 13:52 EST) Anatomical Region Laterality [...] of Ultrasound Findings: Transabdominal US. U/S machine: [employer] e8. U/S view: good. Report Summary: Impression: NOTE: This study was ordered as an NT ONLY so maternal and anatomy assessments were not performed. [id number] Nuchal translucency measurement This is a [place] [...] screening, you may still send serum to [facility] for MSAFP alone to screen for [...] of Ultrasound Findings: Transabdominal US. U/S machine: [employer] e8. U/S view: good. Report Summary: Impression: NOTE: This study was ordered as an NT ONLY so maternal and anatomy assessments were not performed. 33626 Nuchal translucency measurement This is a [place] [...] screening, you may still send serum to [facility] for MSAFP alone to screen for neural tube defects and other obstetrics outcomes associated with an elevated MSAFP. Recommendations: Follow-up as clinically indicated. Growth Overview: Date GA BPD [mm] HC [mm] AC [mm] FL [mm] HUM [mm] EFW GP 08/14/2011 12 + 2 ... ... ... ... ... ... ... [facility] ORDER[facility] F inal Result documented in this encounter Visit Diagnoses Not on filedocumented in this encounter Care Teams Lead Housekeeper Relationship Specialty Start Date End Date Annie Rivera MD PCP - General 07/07/1107/29 documented as of this encounter
--- OUTSIDE RECORDS SUMMARY | 2024-07-13 14:01 | XMS_ITS | Encounter Summary ---
Author Organization [facility] Address [address] [place] [address] Care Team Providers Care Recovery Rn Name Role Phone Agustin Aguila MD Primary Care Provider [phone] Encounter Details Date Type Department Care Team (Latest Contact Info) Description 04/29/2015 16:37 EST - 04/29/2015 23:59 EST Hospital Encounter [address] [address] Annie Rivera MD Discharge Disposition: Home or Self Care Social [...] or Self Usp documented in this encounter Plan of Treatment Not on file documented as of this encounter Visit Diagnoses Not on filedocumented in this encounter Care Teams Recovery Rn Relationship Specialty Start Date End Date Agustin Aguila MD [address] [place] [address] PCP - General 08/13/11 documented as of this encounter
--- OUTSIDE RECORDS SUMMARY | 2024-07-13 14:01 | XMS_ITS | Encounter Summary ---
Author Organization [facility] Address [address] [place] [address] Care Team Providers Care Bar Machine Operator Name Role Phone Agustin Aguila MD Primary Care Provider [phone] Reason for Visit * Auth/Cert (Routine) Specialty Diagnoses / Procedures Referred By Deirdre harris Referred To Contact Diagnoses Maxillary hypoplasia Mandibular hyperplasia Procedures AL RECONST FACE,LEFORT I,1 PIECE AL RECONST MANDIBLE,SAG SPLIT+FIXATN Lefort 1 osteotomy with maxillary advancement and rigid fixation Bilatertal sagittal split osteotomy with mandibular advancement aqnd rigid fixation Referral ID Status Reason Start Date Expiration Date Visits Re quested Visits Authorized [id number] 1 1 Encounter Details Date Type Department Care Team (Late st Contact Info) Description 08/17/2022 10:26 EST - 08/18/2022 16:15 EST Hospital Encounter [facility] General Medicine Unit [address] [place] [address] Martínez Chi, HAMMADS [address] [place] [phone] Discharge Disposition: Home or Self Care [...] % Hospital Course: The patient presented to [facility] on 08/17/2022 for management of Maxillary hypoplasia/ mandibular hyperplasia . The patient was admitted the day of surgery. The surgery was unremarkable and the outcome was satisfactory. Postoperatively, the patient was sent to PACU for monitoring and then to [facility] for recovery. The patient remained stable throughout [...] Code Departure Means Destination Home or Self Jail documented in this encounter Progress Notes * Rylee Villeda - 08/18/2022 1613 EST [facility] DAILY PROGRESS NOTE SUBJECTIVE: Patient POD [...] oral DAILY ??? HYDROmorphone 1 mg/ml (DILAUDID) COUNSELLORS syringe, 30 ml intravenous COUNSELLORS ??? ketOROLAC (TORADOL) injection 15 mg intravenous [...] RN and/or primary care team. Primary Insurance: [facility] State Employee Patient with no apparent Case Management needs at this time. No housing, transportation, insurance,resources concerns identified at this time. Supports in place to achieve a safe post-hospital transition. No identified barriers to accessing necessary care and/or follow-up after discharge. wire hanger/[employer] will continue to follow patient's progress and remain available if situation changes for coordination of care, psychosocial support and/or discharge planning. Jax Dao RN, MSN, [facility] Case Management & Vp Compliance [address] [phone] pager [phone] JAX DAO RN 08/18/2022 10:30 documented in [...] was through to medullary bone. A [place] railroad brake operator was placed in thesagittal cut and a [...] using a double-ended dental curette and a [place] elevator. Horizontal osteotomy was then completed, extending [...] with the superior segment was obtained. The [place] gauge was then used to measure the [...] retained. Martínez Chi DDS / AW Confirmation: [id number] Dictation ID: [id number] cc: documented in this encounter Miscellaneous Notes * Plan of Care - Lorena Reaves RN - 08/18/2022 1613 EST 08/18/22 Status at discharge, nursing note Data: at start of shift today, pt c/o bilat jaw/face pain of 2/10. Pt was using dilaudid corporate tutor minimally, and receiving iv toradol and prednisolone [...] Pain rating climbed from 5/10 to 10/10, COUNSELLORS started and scheduled toradol given, now adequately [...] - 08/17/2022 1601 EST Date: 08/17/2022 Location: [facility] OR Name: April Lewis, : 1980, Diagnosis [...] MANDIB CRV LCK GLD 6H 6MM LEIBINGER [id number] - [id number] Implanted Plate Implant PLATE BONE CMF MANDIB CRV LCK GLD 6H 6MM LEIBINGER [id number] - [id number] Implanted Screw Implant SCREW BONE CMF MANDIB ST GLD 2X4MM LEIBINGER [id number] - [id number] Implanted Screw Implant SCREW BONE CMF MANDIB ST GLD 2X5MM LEIBINGER [id number] - [id number] Implanted Screw Implant SCREW BONE CMF MANDIB ST GLD 2X4MM LEIBINGER [id number] - [id number] Implanted Screw Implant SCREW BONE CMF MANDIB ST GLD 2X5MM LEIBINGER [id number] - [id number] Implanted Plate Implant PLATE BONE 3MM RIGHT 10 HOLE ADVANCEMENT - [id number] Implanted Screw Implant SCREW BONE SLF TPNG FTHRD 1.9X03MM AXS 5786642 - [id number] Implanted Screw Implant SCREW BONE CMF MANDIB SDR 1.7X4MM AXS [id number] - [id number] Implanted Screw Implant SCREW BONE CMF MDFACE SDR 1.7X6MM AXSST [id number] - [id number] Implanted Plate Implant PLATE BONE CMF MDFACE LFT GLD 5H 5MM LEIBINGER [id number] - [id number] Implanted Plate Implant PLATE BONE CMF MDFACE RGHT GLD 5H 5MM ELOISACORPUS CHRISTI [id number] - [id number] Implanted Staff: Solder Making Supervisor: Lina Love, MIKAELA; Earlene Choi RN Relief Scrub: Shirley Trejo Scrub Person: Danial Matt Patient Facing Cutting Machine Operator: Leonor Matute Indications: April Lewis is [...] only block results from tests performed at [facility] and does not apply for Miscellaneous Test Order) Immediate via Mor[employer] Portal Attending Attestation: I was present and [...] EST) 08/19/2022 7:47 EST us Scan 2 Bus Attendant PROCEDURE/MINOR SURGICAL OR DERABLES Final Result * TEST, URINE (08/17/2022 11:13 EST) Test, Urine Negative Negative 08/17/2022 11:27 EST [facility] Comment:False negative resul ts may occur in women who are beyond 5-8 weeks gestation. Diagnosis of should be based on a correlation of test results with typical clinical signs and symptoms. Urine URINE / Unknown Urine Collect / Unknown 08/17/2022 11:13 EST 08/17/2022 11:21 EST Misha Valdivia MD URINALYSIS ORDERABLES Final R esult Performing Organization Address City/State/[facility] Co de Phone Number [facility] [address] [place] [address] documented in this encounter Visit Diagnoses Diagnosis [...] EST 10 mg HYDROmorphone 1 mg/ml (DILAUDID) COUNSELLORS syringe, 30 ml 0.2 mg, intravenous, COUNSELLORS, Starting on Wed08/17/22 at 1615, Until Wed08/18/22 at 1816, See PRN bolus orders for breakthrough pain. CLICK to see order details, Routine, COUNSELLORS Dose (mg): 0.2, Lockout Interval (minutes): 6, [...] Start Date End Da te FLUCELVAX QUAD 2233-3490 60 mcg (15 mcg x 4)/0.5 mL [...] Lorena Reaves RN) HYDROmorphone 1 mg/ml (DILAUDID) COUNSELLORS syringe, 30 ml 0.2 mg, intravenous, COUNSELLORS, Starting on Wed08/17/22 at 1615, Until Wed08/18/22 at 1816, See PRN bolus orders for breakthrough pain. CLICK to see order details, Routine, COUNSELLORS Dose (mg): 0.2, Lockout Interval (minutes): 6, Maximum Limit (mg/hr): 2, Release 2302 (New Bag - Provider: Tess Ledesma RN) 0821 (Rate Documented - Provider: Lorena Reaves RN) lactated ringers (LR) infusion at 25 mL/hr, intravenous, CONTINUOUS, Starting on Wed08/17/22 at 1115, Until Wed08/18/22 at 1816, Routine, Preprocedure 1148 (New Bag - Provider: Claudia Ellis RN)1240 (Continued by Anesthesia - Provider: VANCE Galeas [facility])1240 (Paused - Provider: VANCE Galeas - Comment: Switch to gravity)1241 (Restarted - Provider: VANCE Galeas [facility])1548 (Anesthesia Volume Adjustment - Provider: VANCE Galeas)1608 (New Bag - Provider: VANCE Galeas [facility]) lactated ringers (LR) infusion (CANCELED) at [...] 07/30 documented in this encounter Care Teams Bar Machine Operator Relationship Specialty Start Date End Date Agustin Aguila MD [address] [place] [address] PCP - General 08/13/11 documented as of this encounter
--- OUTSIDE RECORDS SUMMARY | 2024-07-13 14:01 | XMS_ITS | Encounter Summary ---
Author Organization [facility] Address [address] [place] [address] Care Team Providers Care Thread Grinder Name Role Phone Agustin Aguila MD Primary Care Provider [phone] Encounter Details Date Type Department Care Team (Late st Contact Info) Description 05/03/[address] [facility] Radiology Results [address] [place], [place] [phone] Carroll Trinidad MD [address] [place] [phone] Social History Tobacco Use Types Packs/Day Years [...] CAT SCAN/ABDOMEN PELVIS WITH CONTRA EX. D/ (5155) ? CLINICAL INFORMATION: ? R10.84 ??R10.32 LEFT [...] Phan ? Transcribed Date/Time: 05/03/2015 (2008) ? Investment Advisor: RENETTA ? Printed Date/Time: 12/07/2018 (0946) ? PAGE 1 ? Signed Report ? Procedure Note Elkin Clakre MD - 05/03/2019 EXAM: CAT SCAN/ABDOMEN PELVIS [...] CC: Mary Phan Transcribed Date/Time: 05/03/2015 (2008) Investment Advisor: RENETTA Printed Date/Time: 12/07/2018 (0946) PAGE 1 Signed Report Carroll Trinidad MD IMG CT ORDERABLES Final Result documented in this encounter Visit Diagnoses Not on filedocumented in this encounter Care Teams Thread Grinder Relationship Specialty Start Date End Date Agustin Aguila MD [address] [place] [address] PCP - General 08/13/11 documented as of this encounter
--- OUTSIDE RECORDS SUMMARY | 2024-07-13 14:01 | XMS_ITS | Encounter Summary ---
Author Organization [facility] Address [address] [place] [address] Care Team Providers Care Show Worker Name Role Phone Agustin Aguila MD Primary Care Provider [phone] Encounter Details Date Type Department Care Team (Latest Contact Info) Description 08/12/2022 14:30 EST - 08/12/2022 23:59 EST Hospital Encounter [facility] Pre-Surgical Testing [address] [place], [place] [phone] Discharge Disposition: Home or Self Care Social [...] days. 210 mL 08/18/2022 3 FLUCELVAX QUAD [id number] 60 mcg (15 mcg x 4)/0.5 mL [...] 08/18/2022 added in this encounter Care Teams Show Worker Relationship Specialty Start Date End Date Agustin Aguila MD [address] [place] [address] PCP - General 08/13/11 documented as of this encounter
--- OUTSIDE RECORDS SUMMARY | 2024-07-13 14:01 | XMS_ITS | Encounter Summary ---
Author Organization [facility] Address [address] [place] [address] Care Team Providers Care Talend Developer Name Role Phone Agustin Aguila MD Primary Care Provider [phone] Encounter Details Date Type Department Care Team (Late st Contact Info) Description 04/11/2018 Historical Results Only [facility] Lab - Main [address] [id number] Joseph Ortiz MD Social History Tobacco Use [...] RESPIRATORY (04/11/2018 14:24 EDT) GRAM STAIN - [facility] TWO SWABS RECEIVED FOR CULTURE AND GRAM STAIN 04/11/2018 22:30 EDT [facility] BACTERIA SEEN - [facility] NO 04/11/2018 22:30 EDT [facility] WBC [facility] [place] [facility] USF 04/13/2018 11:51 EDT [facility] QUANT - [facility] FEW 04/13/2018 11:51 EDT [facility] 04/11/2018 14:2 4 EDT 04/11/2018 18:19 EDT us Joseph Ortiz MD MICROBIOLOGY - GENERAL ORD ERABLES Final Result [facility] documented in this encounter Visit Diagnoses Not on filedocumented in this encounter Care Teams Talend Developer Relationship Specialty Start Date End Date Agustin Aguila MD [address] [place] [address] PCP - General 08/13/11 documented as of this encounter
--- OUTSIDE RECORDS SUMMARY | 2024-07-13 14:01 | XMS_ITS | Encounter Summary ---
Author Organization [facility] Address [address] [place] [address] Care Team Providers Care Station Jailer Name Role Phone Agustin Aguila MD Primary Care Provider [phone] Encounter Details Date Type Department Care Team (Late st Contact Info) Description 04/29/2015 Historical Results Only [facility] Radiology Results [address] [place] [address] Mary Phan, SHAPER SET UP OPERATOR [address] [facility] [address] [place] [address] Social History Tobacco Use Types [...] 04/29/2015 18:28 EST ? EXAM: ULTRASOUND/TRANSVAGINAL - CORK FLOOR INSTALLER W/ DO EX. D/ (3888) ? CLINICAL INFORMATION: ? ADNEXAL PAIN ? R10.2 ? TRANSVAGINAL - CORK FLOOR INSTALLER W/ DOPPLER ? Signs and Symptoms/Comments: Adnexal [...] CC: ? Transcribed Date/Time: 04/29/2015 (1827) ? Reed Repairer: ? Printed Date/Time: 12/07/2018 (7502) ? PAGE 1 ? Signed Report ? Procedure Note Chris Smith MD - 05/03/2019 EXAM: ULTRASOUND/TRANSVAGINAL - CORK FLOOR INSTALLER W/ DO EX. D/ (1328) CLINICAL INFORMATION: ADNEXAL PAIN R10.2 TRANSVAGINAL - CORK FLOOR INSTALLER W/ DOPPLER Signs and Symptoms/Comments: Adnexal pain [...] Smith MD CC: Transcribed Date/Time: 04/29/2015 (182) Reed Repairer: Printed Date/Time: 12/07/2018 (1033) PAGE 1 Signed Report us Mary Phan SHAPER SET UP OPERATOR IMG US OB ORDERABLES Final Re sult documented in this encounter Visit Diagnoses Not on filedocumented in this encounter Care Teams Station Jailer Relationship Specialty Start Date End Date Agustin Aguila MD [address] [place] [address] PCP - General 08/13/11 documented as of this encounter
--- OUTSIDE RECORDS SUMMARY | 2024-07-13 14:01 | XMS_ITS | Encounter Summary ---
Author Organization [facility] Address [address] [place] [address] Care Team Providers Care Gastroenterology Technician Name Role Phone Agustin Aguila MD Primary Care Provider [phone] Encounter Details Date Type Department Care Team (Late st Contact Info) Description 10/08/2021 Lab Requisition [facility] Pathology & Laboratory Medicine - [address] [address] Outr Resulting Lab, Provider Social History Tobacco [...] gonorrhoeae Result Negative Negative 10/09/2021 13:49 EDT [facility] Chlamydia trachomatis Result Negative Negative 10/09/2021 13:49 EDT [facility] Papanicolaou smear specimen (specimen) CERVIX UTERI STRUCTURE / Unknown 10/07/2021 15:50 EDT 10/09/2021 8:22 EDT us Provider Outr Resulting Lab MICROBIOLOGY - GENER AL ORDERABLES Final Result Performing Organization Address City/State/[facility] Co de Phone Number [facility] [address] [place] [address] documented in this encounter Visit Diagnoses Not on filedocumented in this encounter Care Teams Gastroenterology Technician Relationship Specialty Start Date End Date Agustin Aguila MD [address] [place] [address] PCP - General 08/13/11 documented as of this encounter
--- OUTSIDE RECORDS SUMMARY | 2024-07-13 14:01 | XMS_ITS | Encounter Summary ---
Author Organization [facility] Address [address] [place] [address] Care Team Providers Care Pari Mutuel Ticket Cashier Name Role Phone Agustin Aguila MD Primary Care Provider [phone] Encounter Details Date Type Department Care Team (Latest Contact Info) Description 04/05/2013 17:06 EDT - 04/05/2013 23:59 EDT Hospital Encounter [address] [address] Annie Rivera MD Discharge Disposition: Home or [...] Code Departure Means Destination Home or Self Fdc documented in this encounter Plan of Treatment Not on file documented as of this encounter Visit Diagnoses Not on filedocumented in this encounter Care Teams Pari Mutuel Ticket Cashier Relationship Specialty Start Date End Date Agustin Aguila MD [address] [place] [address] PCP - General 08/13/11 documented as of this encounter
--- OUTSIDE RECORDS SUMMARY | 2024-07-13 14:01 | XMS_ITS | Encounter Summary ---
Author Organization [facility] Address [address] [place] [address] Care Team Providers Care Equity Trader Name Role Phone Agustin Aguila MD Primary Care Provider [phone] Encounter Details Date Type Department Care Team (Late st Contact Info) Description 05/09/2015 Historical Results Only [facility] Lab - Main [address] [phone] Carroll Trinidad MD [address] [place] [phone] Social History Tobacco Use Types Packs/Day Years [...] (05/09/2015) 05/09/2015 05/09/2015 13: 36 EST Narrative [facility] - 05/10/2015 10:13 EST ----- ------- Name: ESTEBAN CONNER ?: [birth year] ?Age/Sex: 38/F ?Unit#: [id number] ? Loc: SDS ? Status: DEP SDC ?? Reg Date: 05/09/15 ? Pt.Phone Number: ? ----- ------- Specimen: [id number] ? STATUS: SOUT ?Spec Date:05/09/15 ? Physician Copies: ?Carroll Trinidad MD ? Tissues: A ?? Muscle biopsy (RECTUS #1) ?Agustin Aguila ? B ?? Muscle biopsy (RECTUS #2) ? C ?? Muscle biopsy (RECTUS #3) ? CPT: 13884 ?? Units: ??3 ?FINAL DIAGNOSIS ? A. [...] rectus muscle are ----- ------- Patient: DENISEWHITAnandaESTEBAN ?#[id number] ? (Continued) ----- ------- Specimen: [id number] ? Received: 05/09/15 ?(Continued) ? GROSS DESCRIPTION [...] confirmed the above diagnosis. Test Performed by [facility], [address] [place] [address] Sport Psychologist: Jovita Hernandez MD PHD ----- ------- us Carroll Trinidad MD PATHOLOGY ORDERABLES Final Resul t [facility] documented in this encounter Visit Diagnoses Not on filedocumented in this encounter Care Teams Equity Trader Relationship Specialty Start Date End Date Agustin Aguila MD [address] [place] [address] PCP - General 08/13/11 documented as of this encounter
--- OUTSIDE RECORDS SUMMARY | 2024-07-13 14:01 | XMS_ITS | Encounter Summary ---
Author Organization [facility] Address [address] [place] [address] Care Team Providers Care Shipping Checker Name Role Phone Agustin Aguila MD Primary Care Provider [phone] Encounter Details Date Type Department Care Team (Late st Contact Info) Description 07/17/2022 Prep for Procedure [facility] ORAL SURGERY [address] [place], [place] [phone] Martínez Chi, EMERITA [address] [place] [address] [address] [place] [address] Maxillary hypoplasia (Primary Dx); Mandibular hyperplasia [...] 07/17/2022 documented in this encounter Care Teams Shipping Checker Relationship Specialty Start Date End Date Agustin Aguila MD [address] [place] [address] PCP - General 08/13/11 documented as of this encounter
--- OUTSIDE RECORDS SUMMARY | 2024-07-13 14:01 | XMS_ITS | Encounter Summary ---
Author Organization [facility] Address [address] [place] [address] Care Team Providers Care Burr Grinder Name Role Phone Agustin Aguila MD Primary Care Provider [phone] Reason for Visit * Auth/Cert (Routine) Specialty Diagnoses / Procedures Referred By Deirdre harris Referred To Contact Diagnoses Maxillary hypoplasia Mandibular hyperplasia Procedures OR RECONST FACE,LEFORT I,1 PIECE OR RECONST MANDIBLE,SAG SPLIT+FIXATN Lefort 1 osteotomy with maxillary advancement and rigid fixation Bilatertal sagittal split osteotomy with mandibular advancement aqnd rigid fixation Referral ID Status Reason Start Date Expiration Date Visits Re quested Visits Authorized [id number] 1 1 Encounter Details Date Type Department Care Team (Late st Contact Info) Description 08/17/2022 12:40 EST Anesthesia Event [facility] OR [address] [place], [place] [address] Pastor Kim MBBC [address] [place], [place] [phone] Eliezer Morales MD [address] [facility] Level [address] [place] [phone] Anesthesia Record Procedure Summary Procedure Name Responsible [...] Morales MD 08/17/22 1605 by Pastor Kim [facility] documented in this encounter Social History Tobacco [...] Anesthesia Postprocedure Evaluation - Pastor Kim MB [facility] - 08/17/2022 1628 EST Patient: April Lewis [...] during procedure: OR Anesthesiologist: Pastor Kim MB [facility] Resident/BUSINESS ANALYSIS SPECIALIST: Eliezer Morales MD Performed: resident/BUSINESS ANALYSIS SPECIALIST/AA Indications and Patient Condition Indications for airway [...] EST documented in this encounter Results * OR AN ELECTIVE ENDOTRACHEAL AIRWAY (08/17/2022 12:52 EST) Narrative Eliezer Morales MD - 08/17/2022 12:52 EST Eliezer Morales MD ? 08/17/2022 13:38 Airway Date/Time: 08/17/2022 12:52 Urgency: elective Airway not difficult General Information and Staff Patient location during procedure: OR Anesthesiologist: Pastor Kim MB [facility] Resident/BUSINESS ANALYSIS SPECIALIST: Eliezer Morales MD Performed: resident/BUSINESS ANALYSIS SPECIALIST/AA Indications and Patient Condition Indications for airway [...] of attempts at approach: 1 Pastor Kim [facility] ANESTHESIA ORDERABLES Nadia peterson Result documented in [...] mg documented in this encounter Care Teams Burr Grinder Relationship Specialty Start Date End Date Agustin Aguila MD [address] [place] [address] PCP - General 08/13/11 documented as of this encounter
--- OUTSIDE RECORDS SUMMARY | 2024-07-13 14:01 | XMS_ITS | Encounter Summary ---
Author Organization [facility] Address [address] [place] [address] Care Team Providers Care Welding Machine Operator Friction Name Role Phone Agustin Aguila MD Primary Care Provider [phone] Encounter Details Date Type Department Care Team (Late st Contact Info) Description 02/15/2012 Historical Results Only [facility] - Main [place] [address] [place] [id number] Darlyn Claros MD [address] [place] [address], [address] [place] [address] Social History Tobacco Use Types [...] (02/15/2012) 02/15/2012 02/16/2012 10: 12 EDT Narrative [facility] - 02/17/2012 11:51 EDT ----- ------- Name: ESTEBAN CONNER ?: [birth year] ?Age/Sex: 38/F ?Unit#: [id number] ? Loc: OBS ? Status: DIS IN ? Reg Date: 02/15/12 ? Pt.Phone Number: ? ----- ------- Specimen: [id number] ? STATUS: SOUT ?Spec Date:02/15/12 ? Physician Copies: ?Hyacinth,Darlyn GUZMAN ?? Tissues: A ?? Female Reproductive System (FALLOPIAN TUBES, R ?? L) ? CPT: 61190 ?? Units: ??1 ?FINAL DIAGNOSIS ? Fallopian [...] diagnosis. Test Performed by [facility], [address] [place] [address] Donor Services Coordinator: Jovita Hernandez MD PHD ----- ------- Darlyn Claros MD PATHOLOGY ORDERABLES Final Re sult [facility] documented in this encounter Visit Diagnoses Not on filedocumented in this encounter Care Teams Welding Machine Operator Friction Relationship Specialty Start Date End Date Agustin Aguila MD [address] [place] [id number] PCP - General 08/13/11 documented as of this encounter
--- OUTSIDE RECORDS SUMMARY | 2024-07-13 14:01 | XMS_ITS | Encounter Summary ---
Author Organization [facility] Address [address] [place] [address] Care Team Providers Care Ingredient Specialist Name Role Phone Agustin Aguila MD Primary Care Provider [phone] Encounter Details Date Type Department Care Team (Latest Contact Info) Description 10/09/2021 Lab Requisition [facility] Pathology & Laboratory Medicine - [facility] [address] [place] [address] Gerda Matute FNP [address] [place] [address] [address] [place] [phone] Encounter for general adult medical examination without [...] types, PCR Negative Negative 10/14/2021 7:32 EDT [facility] Comment:No E6 or E7 mRNA is detected from HPV types 16,18,31,33,35,39,45,51,52,56,58,59,66, and 68 by sap bw developer mediated amplification. Papanicolaou smear specimen (specimen) CERVIX UTERI STRUCTURE / Unknown 10/07/2021 3:50 EDT 10/13/2021 10:06 EDT Gerda CACERESP MICROBIOLOGY - GENERAL ORDERABLE S Final Result [facility] [address] [place] [address] * PAP TEST (10/07/2021 3:50 EDT) Specimens A. Cervix and/or Endocervix , ThinPrep Imaging System with Manual Evaluation 10/14/2021 7:32 [facility] Specimen Adequacy Satisfactory for Evaluation - transformation zone component present 10/14/2021 7:32 [facility] General Categorization Negative for intraepithelial lesion or malignancy 10/14/2021 7:32 [facility] Attestation . 10/14/2021 7:32 [facility] at 0732 Clinical History SEE BELOW 10/15/19 7:32 [facility] HPV The result for the Human Papillomavirus (HPV) Detection-High Risk Types is Negative. No E6 or E7 mRNA is detected from HPV types 16,18,31,33,35,39 ,45,51,52,56,58,5 9,66, and 68 by sap bw developer mediated amplification.Char ting was performed on specimen [id number] and was resulted on 10/14/2021 0714 EDT by LISANDRO, LAB INSTRUMENT RESULTS IN 10/14/2021 7:32 EDT [facility] Performing Lab [facility] 10/14/2021 7:32 EDT [facility] Scanned Images 10/14/2021 7:32 EDT [facility] Papanicolaou smear specimen (specimen) CERVIX UTERI STRUCTURE / Unknown 10/07/2021 3:50 EDT 10/09/2021 13:06 EDT Gerda Matute BABY NURSE PATHOLOGY ORDERABLES Final Resul t [facility] [address] [place] [address] documented in this encounter Visit Diagnoses Diagnosis Encounter for general adult medical examination without abnormal findings Unspecified general medical examination Encounter for screening for malignant neoplasm of cervix Screening for malignant neoplasm of the cervix Encounter for gynecological examination (general) (routine) without abnormal findings documented in this encounter Care Teams Ingredient Specialist Relationship Specialty Start Date End Date Agustin Aguila MD [address] [place] [address] PCP - General 08/13/11 documented as of this encounter
--- OUTSIDE RECORDS SUMMARY | 2024-07-13 14:01 | XMS_ITS | Encounter Summary ---
Author Organization [facility] Address [address] [place] [address] Care Team Providers Care Pecan Sheller Name Role Phone Agustin Aguila MD Primary Care Provider Reason for Visit * Auth/Cert (Routine) Specialty Diagnoses / Procedures Referred By Deirdre harris Referred To Contact Diagnoses Maxillary hypoplasia Mandibular hyperplasia Procedures TX RECONST FACE,LEFORT I,1 PIECE TX RECONST MANDIBLE,SAG SPLIT+FIXATN Lefort 1 osteotomy with maxillary advancement and rigid fixation Bilatertal sagittal split osteotomy with mandibular advancement aqnd rigid fixation Referral ID Status Reason Start Date Expiration Date Visits Re quested Visits Authorized [id number] 1 1 Encounter Details Date Type Department Care Team (Late st Contact Info) Description 08/17/2022 12:20 EST - 08/17/2022 16:05 EST Surgery [facility] OR [address] [place] [id number] Martínez Chi, EMERITA [address] [place] [address] [place] [phone] Lefort 1 osteotomy with maxillary advancement and rigid fixation [22119 (CPT??)] Surgery Details Date/Time Status Location OR Service Patient Class Case Class Case Type Trauma Case? 08/17/2022 1220 Posted [facility] OR [facility] 02 Oral Surgery Extended Stay H - [...] % Hospital Course: The patient presented to [facility] on 08/17/2022 for management of Maxillary hypoplasia/ mandibular hyperplasia . The patient was admitted the day of surgery. The surgery was unremarkable and the outcome was satisfactory. Postoperatively, the patient was sent to PACU for monitoring and then to [facility] for recovery. The patient remained stable throughout [...] Code Departure Means Destination Home or Self Long Term documented in this encounter Progress Notes * Rylee Villeda - 08/18/2022 1613 EST [facility] Surgery DAILY PROGRESS NOTE SUBJECTIVE: Patient POD [...] oral DAILY ??? HYDROmorphone 1 mg/ml (DILAUDID) CIGARETTE FILTER INSPECTOR syringe, 30 ml intravenous CIGARETTE FILTER INSPECTOR ??? ketOROLAC (TORADOL) injection 15 mg intravenous [...] EST * Jax Dao RN - 08/18/2022 1027 EST April Lewis 1980 [place] I osteotomy with maxillary advancement and rigid fixation Bilateral sagittal split osteotomy with mandibular setback and rigid fixation Chart review completed and discussed the plan of care with the direct care RN and/or primary care team. Primary Insurance: [facility] State Employee Patient with no apparent Case Management needs at this time. No housing, transportation, insurance,resources concerns identified at this time. Supports in place to achieve a safe post-hospital transition. No identified barriers to accessing necessary care and/or follow-up after discharge. health informatics specialist/Sapphire Stylus Grinder will continue to follow patient's progress and remain available if situation changes for coordination of care, psychosocial support and/or discharge planning. Jax Dao RN, MSN, [facility] Case Management & Marine Pipefitter Helper [address] [address] pager [phone] JAX DAO RN 08/18/2022 10:30 documented in [...] a vertical reference for maxillary position. A [place] gauge was then used to measure from [...] was through to medullary bone. A [place] plywood factory worker was placed in thesagittal cut and a [...] using a double-ended dental curette and a [place] elevator. Horizontal osteotomy was then completed, extending [...] retained. Martínez Chi DDS / AW Confirmation: [id number] Dictation ID: [id number] cc: documented in this encounter Miscellaneous Notes * Plan of Care - Lorena Reaves RN - 08/18/2022 1613 EST 08/18/22 Status at discharge, nursing note Data: at start of shift today, pt c/o bilat jaw/face pain of 2/10. Pt was using dilaudid rheumatology nurse minimally, and receiving iv toradol and prednisolone [...] Pain rating climbed from 5/10 to 10/10, CIGARETTE FILTER INSPECTOR started and scheduled toradol given, now adequately [...] - 08/17/2022 1601 EST Date: 08/17/2022 Location: [facility] OR Name: April Lewis, : 1980, Diagnosis [...] MANDIB CRV LCK GLD 6H 6MM LEIBINGER [id number] - [id number] Implanted Plate Implant PLATE BONE CMF MANDIB CRV LCK GLD 6H 6MM LEIBINGER [id number] - [id number] Implanted Screw Implant SCREW BONE CMF MANDIB ST GLD 2X4MM LEIBINGER [id number] - [id number] Implanted Screw Implant SCREW BONE CMF MANDIB ST GLD 2X5MM LEIBINGER [id number] - [id number] Implanted Screw Implant SCREW BONE CMF MANDIB ST GLD 2X4MM LEIBINGER [id number] - [id number] Implanted Screw Implant SCREW BONE CMF MANDIB ST GLD 2X5MM LEIBINGER [id number] - [id number] Implanted Plate Implant PLATE BONE 3MM RIGHT 10 HOLE ADVANCEMENT - [id number] Implanted Screw Implant SCREW BONE SLF TPNG FTHRD 1.9X03MM AXS [id number] - [id number] Implanted Screw Implant SCREW BONE CMF MANDIB SDR 1.7X4MM AXS [id number] - [id number] Implanted Screw Implant SCREW BONE CMF MDFACE SDR 1.7X6MM AXSST [id number] - [id number] Implanted Plate Implant PLATE BONE CMF MDFACE LFT GLD 5H 5MM LEIBINGER [id number] - [id number] Implanted Plate Implant PLATE BONE CMF MDFACE RGHT GLD 5H 5MM LEIBINGER [id number] - [id number] Implanted Staff: Epic Cadence Specialists: Lina Love RN; Earlene Choi RN Relief Scrub: Shirley Trejo Scrub Person: Danial Matt Patient System Integration Engineer: Leonor Matute Indications: April Lewis is an [...] only block results from tests performed at [facility] and does not apply for Miscellaneous [...] EST) 08/19/2022 7:47 EST us Scan 2 Division Merchandise Manager PROCEDURE/MINOR SURGICAL OR DERABLES Final Result * TEST, URINE (08/17/2022 11:13 EST) Test, Urine Negative Negative 08/17/2022 11:27 EST [facility] Comment:False negative resul ts may occur in women who are beyond 5-8 weeks gestation. Diagnosis of should be based on a correlation of test results with typical clinical signs and symptoms. Urine URINE / Unknown Urine Collect / Unknown 08/17/2022 11:13 EST 08/17/2022 11:21 EST Misha Valdivia MD URINALYSIS ORDERABLES Final R esult [facility] [address] [place] [address] documented in this encounter Visit Diagnoses Diagnosis [...] EST 10 mg HYDROmorphone 1 mg/ml (DILAUDID) CIGARETTE FILTER INSPECTOR syringe, 30 ml 0.2 mg, intravenous, CIGARETTE FILTER INSPECTOR, Starting on Wed08/17/22 at 1615, Until Wed08/18/22 at 1816, See PRN bolus orders for breakthrough pain. CLICK to see order details, Routine, CIGARETTE FILTER INSPECTOR Dose (mg): 0.2, Lockout Interval (minutes): 6, [...] Start Date End Da te FLUCELVAX QUAD 4930-0996 60 mcg (15 mcg x 4)/0.5 mL [...] Lorena Reaves RN) HYDROmorphone 1 mg/ml (DILAUDID) CIGARETTE FILTER INSPECTOR syringe, 30 ml 0.2 mg, intravenous, CIGARETTE FILTER INSPECTOR, Starting on Wed08/17/22 at 1615, Until Wed08/18/22 at 1816, See PRN bolus orders for breakthrough pain. CLICK to see order details, Routine, CIGARETTE FILTER INSPECTOR Dose (mg): 0.2, Lockout Interval (minutes): 6, Maximum Limit (mg/hr): 2, Release 2302 (New Bag - Provider: Tess Ledesma RN) 0821 (Rate Documented - Provider: Lorena Reaves RN) lactated ringers (LR) infusion at 25 mL/hr, intravenous, CONTINUOUS, Starting on Wed08/17/22 at 1115, Until Wed08/18/22 at 1816, Routine, Preprocedure 1148 (New Bag - Provider: Claudia Ellis RN)1240 (Continued by Anesthesia - Provider: VANCE Galeas [facility])1240 (Paused - Provider: VANCE Galeas - Comment: Switch to gravity)1241 (Restarted - Provider: VANCE Galeas)1548 (Anesthesia Volume Adjustment - Provider: VANCE Galeas [facility])1608 (New Bag - Provider: VANCE Galeas [facility]) lactated ringers (LR) infusion (CANCELED) at [...] 07/30 documented in this encounter Care Teams Pecan Sheller Relationship Specialty Start Date End Date Agustin Aguila MD [address] [place] [address] PCP - General 08/13/11 documented as of this encounter
[2024-07-13 22:38] LABS: CEA 1.5 ng/mL (See Note)
[2024-07-13 23:06] LABS: CA 125 35 U/mL (<30)
[2024-07-14 08:23] LABS: CA 19-9 5 U/mL (<35)
== END 2024-07-13 14:00 | disposition home or self-care (01) ==
LOC: LBO 14:00
PROVIDERS: PCP Nurse Practitioner Family; Visit Provider Obstetrics & Gynecology
DX: N83.209 Unspecified ovarian cyst, unspecified side (principal); F41.9 Anxiety disorder, unspecified
CPT/HCPCS: 36415; 86304; 82378; 86301

== ENCOUNTER 2025-03-16 15:04 | Outpatient (CLI) | payer BC, SELFPAY ==
[2025-03-16 19:30] LABS: CA 125 8 U/mL (<30)
== END 2025-03-16 15:05 | disposition home or self-care (01) ==
LOC: LBO 15:04
PROVIDERS: PCP Nurse Practitioner Family; Visit Provider Student in an Organized Health Care Education/Training Program
DX: C56.9 Malignant neoplasm of unspecified ovary (principal)
CPT/HCPCS: 36415; 86304

== ENCOUNTER 2025-05-04 09:39 | Outpatient (REF) | payer BC, SELFPAY ==
[2025-05-04 16:02] LABS: HCT 43.8 % (36.0-46.0); HGB 15.1 g/dL (11.2-15.7); MCH 30.7 pg (27.0-33.0); MCHC 34.5 % (32.0-36.0); MCV 89 fL (80-95); MPV 11.6 fL (8.0-11.0); Platelet Count 199 10^3/uL (130-400); RBC 4.92 10^6/uL (3.93-5.22); RDW 12.5 % (11.7-14.6); RDW-SD 40.6 fL; WBC 7.26 10^3/uL (4.4-10.8)
[2025-05-04 17:10] LABS: ALT 25 U/L (14-59); AST 13 U/L (15-37); Albumin 4.1 g/dL (3.4-5.0); Alkaline Phosphatase 51 U/L (46-116); Anion Gap 10.7 mmol/L (3-11); BUN 15 mg/dL (7-18); Bilirubin, Total 0.5 mg/dL (0.2-1.0); CO2 25.3 mmol/L (21.0-32.0); Calcium 9.2 mg/dL (8.5-10.1); Chloride 104 mmol/L (98-107); Glucose 99 mg/dL (74-106); Potassium 4.3 mmol/L (3.5-5.1); Sodium 140 mmol/L (136-145); Total Protein 7.5 g/dL (6.4-8.2)
== END 2025-05-04 09:40 | disposition home or self-care (01) ==
LOC: NCHCN 09:39
PROVIDERS: PCP Nurse Practitioner Family; Visit Provider Nurse Practitioner Family
DX: Z00.00 Encounter for general adult medical examination without abnormal findings (principal)
CPT/HCPCS: 80053; 85027

== ENCOUNTER → 2025-05-15 02:15 | Outpatient (CLI) | payer BC, SELFPAY ==
--- NOTE | 2025-05-15 | DI.MAMMO_ITS ---
Exam(s) MAMMO SCREENING EXAM: MAMMO SCREENING CLINICAL HISTORY: SCREENING, Z12.31. TECHNIQUE: Bilateral full field digital CC and MLO mammographic images were obtained with 3D tomosynthesis and utilizing computer aided detection (CAD). COMPARISON: None. This is a baseline mammogram on a 44-year-old FINDINGS: There are no CAD designations. No significant right breast findings. In the left breast there is a solitary well-defined noncalcified nodule measuring 4 x 3 mm located medial of center approximately 6 cm in from the nipple.. Further imaging recommended. There are no malignant-appearing microcalcification groups in this location nor elsewhere in either breast There is no significant architectural distortion nor skin thickening-retraction. IMPRESSION: 1. No radiographic evidence of malignancy in the right breast. 2. 4 x 3 mm solitary left breast nodule as described above. Compression view and breast ultrasound recommended BI-RADS Category 0 - Incomplete: Need additional imaging evaluation Breast Density - Category B - There are scattered areas of fibroglandular density. Breast density Category C or D implies that the patient has dense breast tissue. Dense breast tissue can make it harder to find cancer on a mammogram. Dense breast tissue is also associated with an increased risk of breast cancer. This information about the result of the mammogram report was provided to the patient to raise their awareness. Use this report when you speak with the patient about their risks for breast cancer, which includes their family history. At that time, you may recommend additional screening tests (Ultrasound or MRI) as these tests may add significant information. A negative radiographic report should not delay biopsy if a dominant or clinically suspicious mass is present. Up to ten percent of cancers are not identified on mammography. A negative report may reinforce clinical impression. Adenosis and dense breasts may obscure an underlying neoplasm. False positive reports average 6 to 10%. Patient will receive a letter notifying them of these results.
== END ==
LOC: DI 02:15
PROVIDERS: PCP Nurse Practitioner Family; Visit Provider Nurse Practitioner Family
DX: Z12.31 Encounter for screening mammogram for malignant neoplasm of breast (principal)
CPT/HCPCS: 77063; 77067

== ENCOUNTER → 2025-05-21 02:18 | Outpatient (CLI) | payer BC, SELFPAY ==
--- NOTE | 2025-05-21 | DI.MAMMO_ITS ---
Exam(s) MG MAMMO SCREEN CALL BACK UNI US BREAST LT COMPLETE EXAM: MG MAMMO SCREEN CALL BACK UNI and U/S breast LT complete CLINICAL HISTORY: F/U MAMMO, LT NODULE. TECHNIQUE: Craniocaudal and mediolateral oblique spot digital Mammography views of the left breast with Computer Aided Diagnosis followed by Tomosynthesis and complete left breast ultrasound. All 4 quadrants of the left breast, the left axilla and left retroareolar region were evaluated sonographically. COMPARISON: Comparison is made with baseline examination from 05/15/2025. FINDINGS: Mammography/Tomosynthesis: Masses/Architectural Distortion: There is again seen a tiny well-circumscribed nodule in the lower inner quadrant of the left breast. There does appear to be a lucent notch suggesting an intraparenchymal lymph node. There are no areas of architectural distortion present. Microcalcifictions: No suspicious pleomorphic-type are seen. Skin Thickening/Nipple Retraction: None. Complete left breast US: Echotexture: Normal appearance of the glandular tissue. Shadowing: No suspicious foci. Cyst: None. Solid lesions: None seen. Ductal dilation: None. IMPRESSION: 1. No evidence of malignancy is noted. Stable small well-circumscribed nodule which appears to have a lucent notch suggestive of a lymph node. 2. A six-month follow-up left mammogram is requested for re-evaluation. 3. The findings were discussed with the patient on the date of the examination. BI-RADS Category 3 - 6 month - Probably Benign Finding: Recommend follow-up imaging in 6 months Breast Density - Category B - There are scattered areas of fibroglandular density. Breast density Category C or D implies that the patient has dense breast tissue. Dense breast tissue can make it harder to find cancer on a mammogram. Dense breast tissue is also associated with an increased risk of breast cancer. This information about the result of the mammogram report was provided to the patient to raise their awareness. Use this report when you speak with the patient about their risks for breast cancer, which includes their family history. At that time, you may recommend additional screening tests (Ultrasound or MRI) as these tests may add significant information. A negative radiographic report should not delay biopsy if a dominant or clinically suspicious mass is present. Up to ten percent of cancers are not identified on mammography. A negative report may reinforce clinical impression. Adenosis and dense breasts may obscure an underlying neoplasm. False positive reports average 6 to 10%. Patient will receive a letter notifying them of these results.
== END ==
PROVIDERS: PCP Nurse Practitioner Family; Visit Provider Nurse Practitioner Family
DX: N63.24 Unspecified lump in the left breast, lower inner quadrant (principal)
CPT/HCPCS: 76642; 77063; 77067